=== PATIENT | male | born 1940 | race Caucasian/White ===

== ENCOUNTER → 2017-07-14 10:45 | Outpatient (CLI) | payer MEDICARE, SELFPAY ==
[2017-07-14 12:07] LABS: Hematocrit 45.8 % (40-54); Hemoglobin 15.1 g/dl (13.0-16.5); Mean Corpuscular Hgb 32.2 pg (27.0-32.0); Mean Corpuscular Volume 97.7 fL (80-94); Mean Platelet Vol. 9.5 fl (6.2-12.0); Platelet Count 214 K/mm3 (150-450); RBC Distribution Width CV 15.7 % (11.6-14.6); Red Blood Count 4.69 M/mm3 (4.6-6.2); White Blood Count 7.2 K/mm3 (4.4-11.0)
[2017-07-14 12:22] LABS: Scan Indicated on CBC? Y/N NO
[2017-07-14 12:53] LABS: ALB/GLOB Ratio 0.9 RATIO (0.9-2.4); AST(SGOT) 30 U/L (15-37); Alanine Aminotransfer ALT/SGPT 40 U/L (16-61); Albumin, Serum 3.3 g/dL (3.2-5.0); Alkaline Phosphatase 48 U/L (45-117); Anion Gap 8 (5-15); BUN 16 mg/dL (7-18); BUN/Creat Ratio 16.1 RATIO (10-20); Calcium,Total 8.7 mg/dL (8.5-10.1); Chloride 105 mmol/L (98-107); EST Glomerular Filtration Rate 77 mL/min (>60); Est Glom Filt Rate - Afr Amer 94 mL/min (>60); Globulin 3.5 g/dL (2.2-4.2); Glucose 109 mg/dL (74-106); Protein, Total 6.8 g/dL (6.4-8.2); Sodium Level 140 mmol/L (136-145); Thyroid Stim Hormone (TSH) 2.24 uIU/mL (0.358-3.74)
[2017-07-15 10:37] LABS: Vitamin B12 > 2000 pg/mL (211-911); Vitamin D,25 Hydroxy 34.2 ng/mL (19.95-100.01)
== END ==
PROVIDERS: Family Provider Family Medicine; PCP Family Medicine; Visit Provider Family Medicine
DX: E11.9 Type 2 diabetes mellitus without complications (principal); E53.8 Deficiency of other specified B group vitamins; E55.9 Vitamin D deficiency, unspecified
CPT/HCPCS: 36415; 80053; 82306; 82607; 84443; 85027

== ENCOUNTER → 2018-01-14 12:08 | Outpatient (CLI) | payer MEDICARE, SELFPAY ==
[2018-01-14 14:17] LABS: Anion Gap 10 (5-15); BUN 14 mg/dL (7-18); BUN/Creat Ratio 13.6 RATIO (10-20); Calcium,Total 9.1 mg/dL (8.5-10.1); Chloride 104 mmol/L (98-107); Creatinine, Serum 1.03 mg/dL (0.70-1.30); EST Glomerular Filtration Rate 74 mL/min (>60); Est Glom Filt Rate - Afr Amer 90 mL/min (>60); Glucose 94 mg/dL (74-106); Sodium Level 140 mmol/L (136-145)
[2018-01-14 14:42] LABS: BNP,B-Type NATRIURETIC PEPTIDE 21.3 pg/mL (0-100)
== END ==
PROVIDERS: Family Provider Family Medicine; PCP Family Medicine; Visit Provider Family Medicine
DX: E55.9 Vitamin D deficiency, unspecified (principal); R60.0 Localized edema; I25.10 Atherosclerotic heart disease of native coronary artery without angina pectoris
CPT/HCPCS: 36415; 80048; 82306; 83880

== ENCOUNTER → 2018-02-15 06:26 | Outpatient (CLI) | payer MEDICARE, SELFPAY ==
--- NOTE | 2018-02-15 17:48 | STRESSREP ---
Stress Test Report Pharmacologic myocardial perfusion stress test. 77-year-old man with a history of chest pain. Medications metoprolol, aspirin, fissural, pravastatin, tamsulosin. Stress protocol: Resting EKG demonstrates normal sinus rhythm with a rate of 64 bpm leftward axis is present resting blood pressures 140/96 mmHg. 0.4 mg of regadenoson was infused per usual protocol followed by rapid intravenous saline flush injection continuous EKG monitoring was performed. The maximum heart rate attained was 81 bpm which was 56% of maximum predicted heart rate the maximum workload was 1 metabolic equivalent. At rest nonspecific ST-T wave changes were noted at peak infusion nonspecific ST-T wave changes were noted. No EKG changes suggestive of ischemia was present. Resting blood pressure is 140/96 with a peak blood pressure the same. Final blood pressure is 138/90 mmHg. Myocardial perfusion protocol. 14.0 mCi of technetium 99m sestamibi was injected at rest. 0.4 mg of regadenoson was infused per usual protocol peak infusion 45.0 mCi of technetium 99m sestamibi was injected straight stress images were obtained stress and rest images were reconstructed and compared in the short axis vertical and horizontal long axis. Perfusion SPECT analysis: Review of the stress images demonstrate normal uptake of tracer noted in the anterior wall lateral wall. There is mildly reduced perfusion noted in the anteroseptal wall on the stress images with moderate improvement on the resting images suggestive of a mild amount of anteroseptal ischemia. The apex appears to have reduced perfusion on the stress and rest images to a similar extent. Gated SPECT analysis: The gated ejection fraction is noted to be 54% with mild anteroapical hypokinesis noted. Conclusion: Mildly abnormal pharmacologic myocardial perfusion stress test with evidence of anterior septal ischemia. Preserved ejection fraction.
== END ==
PROVIDERS: Family Provider Family Medicine; PCP Family Medicine; Visit Provider Family Medicine
DX: R07.9 Chest pain, unspecified (principal)
CPT/HCPCS: 78452; 93017; A9500; A4216; J2785

== ENCOUNTER 2018-02-24 10:48 | Observation (INO) | payer MEDICARE, SELFPAY ==
[2018-02-24 11:02] VITALS: BP 143/81; PULSE 59; RESP 16; TEMP 36.7; O2SAT 98
[2018-02-24 11:04] VITALS: BP 142/78
--- NOTE | 2018-02-24 11:05 | RAD_ITS ---
STUDY: X-RAY CHEST REASON FOR EXAM: Male, 77 years old. CHEST PAIN TECHNIQUE: Single AP portable view of the chest. COMPARISON: None. FINDINGS: Subsegmental atelectases in the right and left lung bases. There is no demonstrated pleural abnormality. Normal size heart. Normal mediastinum and aniceto. Normal visualized pulmonary arteries. There is atherosclerotic tortuosity of the aortic arch and descending thoracic aorta. Normal visualized thoracic spine. There is degenerative osteoarthritis of the bilateral shoulders. There is no demonstrated abnormality of the visualized soft tissue structures of the upper abdomen. RAD/Chest 1 View (Portable) IMPRESSION: Degenerative changes, as described above. No demonstrated acute cardiopulmonary process. Electronically Signed: Larry Hunter MD at 11:39 EDT Tel , Service support ,
[2018-02-24 11:16] VITALS: PULSE 67
[2018-02-24 11:16] LABS: Absolute Neutrophil Count 3.2 X10^3/uL (2.0-7.7); Basophil# 0.02 X10^3/uL; Basophil% 0.4 % (0-1); Eosinophil# 0.09 X10^3/uL; Eosinophils% 1.7 % (0-5); Hematocrit 45.3 % (40-54); Hemoglobin 14.8 g/dl (13.0-16.5); Lymphocyte % 25.7 % (19-41); Mean Corp Hgb Conc 32.7 g/gl (32-36); Mean Corpuscular Hgb 32.2 pg (27.0-32.0); Mean Corpuscular Volume 98.5 fL (80-94); Mean Platelet Vol. 8.8 fl (6.2-12.0); Monocyte% 12.8 % (0-10); Neutrophil # 3.21 X10^3/uL (2.7-7.7); Neutrophil % 58.8 % (47-70); POSITIVE COUNT NO; POSITIVE DIFFERENTIAL NO; POSITIVE MORPHOLOGY NO; Platelet Count 187 K/mm3 (150-450); RBC Distribution Width CV 15.7 % (11.6-14.6); RBC Distribution Width SD 55.8 fl (35.1-43.9); White Blood Count 5.5 K/mm3 (4.4-11.0)
[2018-02-24 11:25] LABS: Prothrombin Time (Protime)PT. 12.7 SECONDS (11.7-14.9)
[2018-02-24 11:27] VITALS: BMI 39.2
[2018-02-24 11:30] LABS: Anion Gap 4 (5-15); BUN 14 mg/dL (7-18); BUN/Creat Ratio 13.3 RATIO (10-20); Calcium,Total 8.8 mg/dL (8.5-10.1); Chloride 106 mmol/L (98-107); Creatinine, Serum 1.05 mg/dL (0.70-1.30); EST Glomerular Filtration Rate 73 mL/min (>60); Est Glom Filt Rate - Afr Amer 88 mL/min (>60); Estimated Creatinine Clearance 64.67 ml/min; Glucose 90 mg/dL (74-106); Potassium 4.1 mmol/L (3.5-5.1); Sodium Level 142 mmol/L (136-145)
[2018-02-24] MEDS: TICAGRELOR 90 MG TABLET 180 MG PO (11:36)
[2018-02-24 11:44] VITALS: BMI 39.2
[2018-02-24 12:05] LABS: Bedside Glucose 79 mg/dL (70-110)
--- NOTE | 2018-02-24 12:10 | NURSING ---
Called report to Shyanne ONEAL in [facility]
--- NOTE | 2018-02-24 12:16 | CASEMGMT ---
According to the [facility] Care website, the following are in-network tertiary facilities: [facility], [place], [facility] and . Nirmal ONEAL CM
[2018-02-24] MEDS: 0.9% Normal Saline 1,000 ML 60 ML IV (12:28)
[2018-02-24] MEDS: 0.9% NaCl Peripheral Flush Adult/Peds IV (12:30)
--- NOTE | 2018-02-24 12:40 | PCM.CONS.C ---
Reason for Consult Date of Consultation: 02/24/18 Reason for Consultation: Chest pain History of Present Illness: NYASIA MOSQUEDA, is a 77 M who presents to the office today for an initial evaluation. He is a pleasant gentleman with a previous history of coronary artery disease status post myocardial infarction in 2003. At that time he underwent a cardiac catheterization and angioplasty and stent deployment of a totally occluded left anterior descending artery. He had a 3.0 x 18 mm Cypher stent placed in the mid left anterior descending artery and the proximal left anterior descending artery had a 3.5 x 13 mm Cypher stent placed. He apparently did well over the ensuing years and also underwent an echocardiographic evaluation in 2011 at that time his estimated ejection fraction was 50%. He does have a history of hypertension diabetes mellitus and more recently he started getting shortness of breath as well as chest discomfort. He describes this as a heaviness and burning across his chest sometimes radiating to his left arm. He has been taking nitroglycerin which seems to relieve the discomfort and he has finished a bottle of nitroglycerin in approximately a week. He underwent stress testing a week ago which demonstrated mildly abnormal pharmacologic myocardial perfusion with evidence of anterior ischemia. He presents today for an evaluation. He has had no dizziness or diaphoresis no near syncope or syncope. He does get short of breath with exertion. Past Medical History Allergies/Adverse Reactions: Allergies No Known Allergies Allergy (Unverified 02/24/18 09:34) Home Medications: Ambulatory Orders Medication Instructions Recorded cholecalciferol (vitamin D3) 50,000 unit PO QWEEK 02/23/18 50,000 unit capsule furosemide 20 mg tablet 20 mg PO DAILY 02/23/18 losartan 50 mg tablet 50 mg PO DAILY 02/23/18 metformin ER 500 mg 500 mg PO QHS tab 02/23/18 tablet,extended release 24 hr metoprolol tartrate 25 mg tablet 25 mg PO BID 02/23/18 pravastatin 40 mg tablet 40 mg PO QHS tab 02/23/18 tamsulosin 0.4 mg capsule 0.4 mg PO QHS 02/23/18 Aspirin [Aspirin, Baby] 81 mg PO DAILY@0800 02/24/18 Bupropion HCl [Bupropion Xl] 300 mg PO DAILY 02/24/18 Cyanocobalamin (Vitamin B-12) 2,500 mcg PO DAILY 02/24/18 [Vitamin B12] Fish Oil/Borage/Flax/Om3,6,9#1 800 mg PO BID 02/24/18 [Mtdrqyvj-Aalv-Lcoyyv Oil Sftgl] L.acidoph,Paracasei, B.lactis 1 each PO QHS 02/24/18 [Probiotic] Potassium Chloride [K-Dur] 10 meq PO BID 02/24/18 nitroglycerin 0.4 mg sublingual 0.4 mg SUBLINGUAL Q5-15M PRN #25 02/24/18 tablet tab Past Medical History (Chronic Problems): Chronic Problems (Last Reviewed 02/24/18 @ 10:35 by Celestine Castillo MD) 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) Hyperlipidemia (Chronic) Essential (primary) hypertension (Chronic) Atherosclerosis of coronary artery of semin[place] heart with angina pectoris (Chronic) [id number] LAD w/ 3.0 x 18 mm Cypher and Prox LAD w/ 3.5 x 13 mm Cypher Stent 04/29/2004 Surgical History: no surgical history Smoking Status: Never smoker Alcohol: None Drugs: None Review of Systems - Review of Systems General: Denies: Fever, Night Sweats, Fatigue Cardiovascular: Reports: Chest Discomfort at Rest, Chest Discomfort with Exertion, Chest Pressure, Chest Tightness, Chest Heaviness, Shortness of Breath, Shortness of Breath at Rest, Shortness of Breath with Exertion. Denies: Chest Discomfort, Orthopnea, PND, Peripheral Edema, Palpitations, Lightheadedness, Dizziness, Near Syncope, Syncope Respiratory: Denies: Cough, Sputum Production, Hemoptysis Gastrointestinal: Denies: Hematemesis, Hematochezia, Melena Genitourinary: Denies: Dysuria, Hematuria Skin: Denies: Rash Subjectve: Pleasant gentleman in no apparent distress Objective: Vital Signs Temp Pulse Resp BP Pulse Ox 98.1 F 67 16 142/78 H 98 02/24/18 11:02 02/24/18 11:16 02/24/18 11:02 02/24/18 11:04 02/24/18 11:02 Oxygen Delivery Method Room Air Weight: 288 lb 12.889 oz Body Mass Index (BMI) 39.2 General: Awake, Alert, Oriented x 3 HEENT: PERRL, EOMI, Sclera Non Icteric Neck: Supple, Good ROM, No Lymph Node Enlargement Lungs: Clear to auscultation Cardiovascular: Regular Rhythm, Normal S1, Normal S2, No Murmurs, No Rubs, No Gallops Vascular: No Carotid Bruits, Normal Femoral Pulses, Normal Radial Pulses, Normal Dorsalis Pedal Pulse, Normal Posterior Tibial Pulses Abdomen: Bowel Sounds Present, Soft, Non Tender, No HSM, No Organomegaly Extremities: No Cyanosis, No Clubbing, No edema Neurological: No Focal Motor or Sensory Deficit 02/24/18 11:05: WBC 5.5, RBC 4.60, Hgb 14.8, Hct 45.3, MCV 98.5 H, MCH 32.2 H, MCHC 32.7, RDW 15.7 H, RDW Differential 55.8 H, Plt Count 187, MPV 8.8, Immature Gran % (Auto) 0.600, Neut % (Auto) 58.8, Lymph % (Auto) 25.7, Josephine % (Auto) 12.8 H, Eos % (Auto) 1.7, Baso % (Auto) 0.4, Absolute Neuts (auto) 3.2, Total Counted Not Reportable 02/24/18 11:05: PT 12.7, INR 1.0 02/24/18 11:05: Sodium 142, Potassium 4.1, Chloride 106, Carbon Dioxide 32.0, Anion Gap 4 L, BUN 14, Creatinine 1.05, Est GFR (MDRD) Af Amer 88, Est GFR (MDRD) Non-Af 73, BUN/Creatinine Ratio 13.3, Glucose 90, Calcium 8.8 Rhythm: EKG: ECHO: Stress Test: Cardiac Cath: PCI: CT Surgery: Holter monitor: EPS: PPM: CXR: Chest CT Scan: Assessment/Plan 1. Unstable angina And presents to the office with unstable angina and subtle EKG changes and the plan is to admit him and for him to undergo a cardiac catheterization. The risk benefits and alternatives have been explained to him he understands and agrees to proceed. The patient was administered the following: Aspirin 81 mg. Ticagrelor 180 mg. Patient will continue his statin. His beta-alejandra would also be continued. Pending on the findings further recommendations will be made. Cardiac catheterization performed demonstrated the following: Distal 70-80% left main coronary artery stenosis. Left anterior descending artery with previously placed stent which is patent Left circumflex artery with moderate proximal stenosis High-grade right coronary artery with left to right collaterals. Preserved left ventricular ejection fraction. Based on the above angiographic findings I would recommend that the patient be transferred urgently for coronary artery bypass surgery. I have discussed the above with the surgeon and the family they understand and agreed to proceed.
--- NOTE | 2018-02-25 10:41 | CL.D_ITS ---
Patient Name: NYASIA MOSQUEDA Study Date: 02/24/2018 Performing: Celestine Castillo MD Ht: 72 inches 183 cm : 1940 Wt: 289.2 lbs 131 kg Age: 77 Gender: male BSA: 2.49 PROCEDURE(S) PERFORMED FD94-OED/COR/LV CLINICAL PROFILE AND INDICATIONS Indications: Suspected CAD Heart Failure: None Stress/Imaging Stress/Image Study Performed: No Angina Classification Anginal Classification w/in 2 Weeks: CCS IV CAD Presentations: Unstable angina. CONCLUSIONS Severe distal LM and diagonal vessel stenosis and subtotally occluded right RECOMMENDATIONS Surgery consult for coronary revascularization DESCRIPTION OF PROCEDURE The patient arrived to the procedure lab. The risks and benefits of the procedure as well as a full d escription of our services here and current unavailability of surgical backup were fully explained to the patient and/or their significant other prior to the catheterization. The Timeout was completed, verifying the correct patient and procedure. The patient's procedural site was prepped and draped in the usual fashion. Local anesthetic was given subcutaneously to right groin region with Lidocaine 2%. Using a modified Seldinger technique, arterial access was obtained via the right femoral artery, a 5 Fr sheath was inserted. Left Coronary Artery selective angiography was performed in multiple views u sing a 5 Fr. JL4 catheter. Right Coronary Artery selective angiography was then performed in multiple views using a 5 Fr. 3DRC (Rashid) catheter. Left Ventriculography was performed in FOX projection using a 5 Fr. Pigtail catheter. LV to AO pullback pressures were then recorded.The arterial sheath wa s sutured in place with heparinized normal saline under pressure CORONARY ANGIOGRAPHY DOMINANCE: Right Dominant LEFT HEART ASSESSMENT Left Ventricular Ejection Fraction: by LV Gram 55 % Normal LV wall motion Normal Left Ventricular systolic function LEFT MAIN: 75 distal % Stenosis LEFT ANTERIOR DECENDING ARTERY: Instent restenosis 20 % MID LAD: Instent restenosis 20 % DIAGONAL 1: Ostial - 60 % Stenosis CIRCUMFLEX ARTERY: Mild luminal irregularities less than 30% RIGHT CORONARY ARTERY: MID RCA: 95 % Stenosis COLLATERAL FLOW: Collateral flow from Left to Right COMPLICATIONS No Complications PROCEDURE MEDICATIONS Versed 1 mg IV Fentanyl 50 mcg IV Oxygen: 2 L/min via nasal cannula SUMMARY OF HEMODYNAMIC DATA Time AIR REST ECG 12:38:46 AO 144/82 (109) SA 12:50:17 LV 137/16, 36 12:57:18 LV 133/17, 28 12:57:24 LV 126/2, 26 12:59:06 LV 129/0, 28 12:59:13 LVp 135/0, 30 12:59:17 AOp 140/71 (99) 12:59:22 ECG 14:22:24 Signed By Celestine Castillo MD On 02/24/2018 18:15:09 Celestine Castillo MD
== END 2018-02-24 16:14 | disposition short-term general hospital (02) ==
PROVIDERS: Admitting Provider Internal Medicine Cardiovascular Disease; Family Provider Family Medicine; PCP Family Medicine; Referring Provider Internal Medicine Cardiovascular Disease; Visit Provider Internal Medicine Cardiovascular Disease
DX: I25.110 Atherosclerotic heart disease of native coronary artery with unstable angina pectoris (principal); I25.2 Old myocardial infarction; I10 Essential (primary) hypertension; E11.9 Type 2 diabetes mellitus without complications; R06.02 Shortness of breath; Z79.899 Other long term (current) drug therapy; E78.5 Hyperlipidemia, unspecified; Z95.5 Presence of coronary angioplasty implant and graft; Z79.84 Long term (current) use of oral hypoglycemic drugs; Z79.82 Long term (current) use of aspirin
CPT/HCPCS: 71045; 80048; 82962; 85025; 85610; 93005; 93458; 99152; 99153; J7030; Q9967; A4216; C1769

== ENCOUNTER → 2018-06-02 08:39 | Outpatient (CLI) | payer MEDICARE, SELFPAY ==
[2018-05-07 08:14] VITALS: BMI 35.2
--- NOTE | 2018-06-02 08:42 | ECHOCS_ITS ---
Reason For Study: S/P CABG Procedure This was a 2D Doppler, Color Flow transthoracic echocardiogram. Technically difficult study due to patient body habitus. Multiple posisitons used to obtain best images. Exam performed in department. Left Ventricle Normal LV size. Left ventricular systolic function is normal. The estimated ejection fraction is 55 %. Stage 1 diastolic dysfunction. No regional wall motion abnormalities noted. Right Ventricle Normal RV size. Normal systolic function. Atria Normal left atrium. Normal right atrium. Tricuspid Valve Normal tricuspid valve. Mild (1+) tricuspid valve insufficiency. Pulmonary artery systolic pressure is 31 mmHg. Aortic Valve Trisinus/trileaflet aortic valve. Pulmonic Valve The pulmonic valve is not well visualized. Great Vessels Normal aortic root. The pulmonary artery is normal size. Normal inferior vena cava. Pericardium/Pleural Small pericardial effusion. Medication 22 gauge I.V. with prn adaptor inserted into right arm. Diluted definity 8ml given slow IV push to enhance endocardial definition. MMode/2D Measurements & Calculations LVIDd: 3.8 cm IVSd: 2.1 cm Ao root diam: 3.5 cm LVIDs: 2.3 cm LVPWd: 1.8 cm FS: 38.9 % LAV(MOD-sp4): 36.2 ml LVAd ap4: 19.2 cm2 SV(MOD-sp4): 26.1 ml EDV(MOD-sp4): 44.6 ml EDV(sp4-el): 45.2 ml LVAs ap4: 10.9 cm2 ESV(MOD-sp4): 18.5 ml ESV(sp4-el): 18.9 ml EF(MOD-sp4): 58.5 % EF(sp4-el): 58.1 % SV(sp4-el): 26.3 ml LA A4 area: 14.5 cm2 RA A4 area: 19.6 cm2 Time Measurements MV dec time: 0.28 sec Doppler Measurements & Calculations MV E max sammy: 58.2 cm/sec Lat Peak E' Sammy: 17.5 cm/sec Med Peak E' Sammy: 6.9 cm/sec MV A max sammy: 102.8 cm/sec E/E' lat: 3.3 E/E' med: 8.5 MV E/A: 0.57 MV V2 max: 109.5 cm/sec MV P1/2t max sammy: 71.7 cm/sec Ao V2 max: 95.8 cm/sec MV max P.8 mmHg MV P1/2t: 68.3 msec Ao max P.7 mmHg MV V2 mean: 49.1 cm/sec Ao V2 mean: 59.7 cm/sec MV mean P.2 mmHg MV dec slope: 307.7 cm/sec2 Ao mean P.7 mmHg MV V2 VTI: 23.2 cm MVA(P1/2t): 3.2 cm2 Ao V2 VTI: 16.6 cm LV V1 max: 90.1 cm/sec PA V2 max: 97.4 cm/sec TR max sammy: 254.7 cm/sec LV V1 max P.2 mmHg TR max P.9 mmHg LV V1 mean P.6 mmHg LV V1 mean: 57.6 cm/sec LV V1 VTI: 15.8 cm Interpretation Summary Normal LV size. Left ventricular systolic function is normal. The estimated ejection fraction is 55 %. Stage 1 diastolic dysfunction. Mild (1+) tricuspid valve insufficiency. Small pericardial effusion. Ordering Physician: Celestine Castillo Referring Physician: Maynor Montero Performed By: Sarmad Bocanegra RCS
== END ==
PROVIDERS: Family Provider Family Medicine; PCP Family Medicine; Referring Provider Internal Medicine Cardiovascular Disease; Visit Provider Internal Medicine Cardiovascular Disease
DX: I07.1 Rheumatic tricuspid insufficiency (principal); Z95.1 Presence of aortocoronary bypass graft
CPT/HCPCS: 93306; Q9957; A4216; C8929

== ENCOUNTER → 2018-08-19 12:27 | Outpatient (CLI) | payer MEDICARE, SELFPAY ==
[2018-08-05 11:02] VITALS: BMI 35.2
[2018-08-19 14:25] LABS: Anion Gap 5 (5-15); BUN 25 mg/dL (7-18); BUN/Creat Ratio 24.5 RATIO (10-20); Chloride 105 mmol/L (98-107); Creatinine, Serum 1.02 mg/dL (0.70-1.30); EST Glomerular Filtration Rate 75 mL/min (>60); Est Glom Filt Rate - Afr Amer 91 mL/min (>60); Glucose 96 mg/dL (74-106); Magnesium 1.9 mg/dL (1.6-2.6); Potassium 4.1 mmol/L (3.5-5.1); Sodium Level 141 mmol/L (136-145)
== END ==
PROVIDERS: Family Provider Family Medicine; PCP Family Medicine; Referring Provider Family Medicine; Visit Provider Family Medicine
DX: M79.89 Other specified soft tissue disorders (principal)
CPT/HCPCS: 36415; 80048; 83735

== ENCOUNTER → 2018-08-26 11:15 | Outpatient (CLI) | payer MEDICARE, SELFPAY ==
[2018-08-05 11:02] VITALS: BMI 35.2
[2018-08-26 13:22] LABS: Anion Gap 7 (5-15); BUN 26 mg/dL (7-18); BUN/Creat Ratio 24.5 RATIO (10-20); Calcium,Total 8.9 mg/dL (8.5-10.1); Chloride 105 mmol/L (98-107); Creatinine, Serum 1.06 mg/dL (0.70-1.30); EST Glomerular Filtration Rate 72 mL/min (>60); Est Glom Filt Rate - Afr Amer 87 mL/min (>60); Glucose 95 mg/dL (74-106); Potassium 4.2 mmol/L (3.5-5.1); Sodium Level 142 mmol/L (136-145)
== END ==
PROVIDERS: Family Provider Family Medicine; PCP Family Medicine; Referring Provider Family Medicine; Visit Provider Family Medicine
DX: M79.89 Other specified soft tissue disorders (principal)
CPT/HCPCS: 36415; 80048; 83735

== ENCOUNTER → 2018-11-30 12:24 | Outpatient (CLI) | payer MEDICARE, SELFPAY ==
[2018-08-05 11:02] VITALS: BMI 35.2
--- NOTE | 2018-11-30 12:29 | RAD_ITS ---
STUDY: X-RAY - CERVICAL SPINE REASON FOR EXAM: Male, 78 years old. Neck pain TECHNIQUE: 5 view(s) of the cervical spine were obtained. COMPARISON: None FINDINGS: There is no evidence of fracture or dislocation in the cervical spine. The dens is intact. The vertebral body heights are well-maintained. There are moderate degenerative changes noted with disc space narrowing in the lower cervical spine. The prevertebral soft tissues are unremarkable. There is no radiodense foreign body. RAD/Cerv Spine 4 or 5 Views IMPRESSION: No fracture or dislocation in the cervical spine. Moderate degenerative changes in the lower cervical spine. Electronically Signed: Jesus Nicolas, at 17:29 EDT Tel , Service support ,
[2018-11-30 13:38] LABS: Hematocrit 45.1 % (40-54); Hemoglobin 14.4 g/dl (13.0-16.5); Mean Corp Hgb Conc 31.9 g/gl (32-36); Mean Corpuscular Hgb 30.6 pg (27.0-32.0); Mean Corpuscular Volume 95.8 fL (80-94); Mean Platelet Vol. 9.4 fl (6.2-12.0); Platelet Count 223 K/mm3 (150-450); RBC Distribution Width CV 16.8 % (11.6-14.6); RBC Distribution Width SD 57.7 fl (35.1-43.9); Red Blood Count 4.71 M/mm3 (4.6-6.2); White Blood Count 6.3 K/mm3 (4.4-11.0)
[2018-11-30 13:39] LABS: Scan Indicated on CBC? Y/N NO
[2018-11-30 13:54] LABS: ALB/GLOB Ratio 1.1 RATIO (0.9-2.4); AST(SGOT) 24 U/L (15-37); Alanine Aminotransfer ALT/SGPT 25 U/L (16-61); Albumin, Serum 3.6 g/dL (3.2-5.0); Alkaline Phosphatase 48 U/L (45-117); Anion Gap 5 (5-15); BUN 24 mg/dL (7-18); BUN/Creat Ratio 20.5 RATIO (10-20); Calcium,Total 9.4 mg/dL (8.5-10.1); Chloride 103 mmol/L (98-107); Cholesterol 160 mg/dL (200); Creatinine, Serum 1.17 mg/dL (0.70-1.30); EST Glomerular Filtration Rate 64 mL/min (>60); Est Glom Filt Rate - Afr Amer 77 mL/min (>60); Globulin 3.4 g/dL (2.2-4.2); Glucose 88 mg/dL (74-106); High Density Lipoprotein 46 mg/dL; Potassium 4.4 mmol/L (3.5-5.1); Sodium Level 140 mmol/L (136-145); Triglycerides 183 mg/dL; Very Low Density Lipoprotein 37 mg/dL (5-40)
[2018-11-30 14:17] LABS: BNP,B-Type NATRIURETIC PEPTIDE 98.4 pg/mL (0-100)
== END ==
PROVIDERS: Family Provider Family Medicine; PCP Family Medicine; Referring Provider Family Medicine; Visit Provider Family Medicine
DX: I25.10 Atherosclerotic heart disease of native coronary artery without angina pectoris (principal); M54.2 Cervicalgia
CPT/HCPCS: 36415; 72050; 80053; 80061; 83880; 85027

== ENCOUNTER → 2018-12-21 12:33 | Outpatient (CLI) | payer MEDICARE, SELFPAY ==
[2018-08-05 11:02] VITALS: BMI 35.2
--- NOTE | 2018-12-21 12:35 | ART_ITS ---
Reason For Study: CAD/Claudication Procedure A bilateral lower extremity continuous wave Doppler with analog waveform analysis and ankle brachial indexes. Left Segmental Pressures Left brachial= 117mmHg. Left posterior tibial artery = 136mmHg. Left dorsalis pedis artery = 134mmHg. Left digit = >254 mmHg. The left dorsalis pedis waveforms are triphasic. The left posterior tibial artery waveforms are triphasic. Right Segmental Pressures Right brachial= 113mmHg. Right posterior tibial artery = 135mmHg. Right dorsalis pedis artery = 137mmHg. Right digit = 90 mmHg. The right dorsalis pedis waveforms are triphasic. The right posterior tibial artery waveforms are triphasic. Indices The right ankle brachial index by the dorsalis pedis is 1.17. The right ankle brachial index by the posterior tibial artery is 1.15. The right digital-brachial index is 0.77. The left ankle brachial index by the dorsalis pedis is 1.15. The left ankle brachial index by the posterior tibial artery is 1.16. The left digital-brachial index is NC. Interpretation Summary Triphasic Doppler waveforms are noted at ankle level bilaterally. Pulse-volume recording waveform amplitudes are satisfactory at ankle and digital levels bilaterally. Resting ankle-brachial indices are normal bilaterally. The right digital-brachial index is normal. The left digital-brachial index was not determined. There is no evidence of significant arterial occlusive in the lower extremities bilaterally. Ordering Physician: All Montero Referring Physician: All Montero Performed By: Olga Hernandes RVT
== END ==
PROVIDERS: Family Provider Family Medicine; PCP Family Medicine; Referring Provider Family Medicine; Visit Provider Family Medicine
DX: I73.9 Peripheral vascular disease, unspecified (principal); I25.10 Atherosclerotic heart disease of native coronary artery without angina pectoris
CPT/HCPCS: 93922

== ENCOUNTER → 2019-01-19 11:38 | Outpatient (CLI) | payer MEDICARE, SELFPAY ==
[2018-08-05 11:02] VITALS: BMI 35.2
--- NOTE | 2019-01-19 11:41 | RAD_ITS ---
STUDY: X-RAY - LUMBAR SPINE REASON FOR EXAM: Male, 78 years old. Low back pain, bilateral leg pain and numbness. TECHNIQUE: 5 view(s) of the lumbar spine were obtained. COMPARISON: None FINDINGS: Normal lumbar lordosis. There is no substantial scoliosis. Moderate compression fracture of L2 with focal kyphosis in 5 mm retrolisthesis of L2 on L3. There is multilevel endplate spondylosis of the lumbar vertebrae. There is multi-level degenerative disc disease with multi-level disc space narrowing. The soft tissue structures are unremarkable. RAD/L/S Spine Min 4 Views IMPRESSION: Moderate compression fracture of L2 which may be acute or chronic and clinical correlation and/or MRI is recommended. Associated focal kyphosis in 5 mm retrolisthesis of L2 on L3. Electronically Signed: Wilber Art MD at 12:04 EDT Tel , Service support ,
== END ==
PROVIDERS: Family Provider Family Medicine; PCP Family Medicine; Referring Provider Family Medicine; Visit Provider Family Medicine
DX: M54.9 Dorsalgia, unspecified (principal)
CPT/HCPCS: 72110

== ENCOUNTER 2019-02-09 11:30 | Outpatient (RCR) | payer MEDICARE, SELFPAY ==
[2018-08-05 11:02] VITALS: BMI 35.2
--- NOTE | 2018-12-22 08:58 | HP.PTEVAL ---
Patient's Visit Information NYASIA MOSQUEDA is a 78 year old M referred to Physical Therapy by All Montero MD with a diagnosis of NECK PAIN. Date of Evaluation: 12/22/18 Physical Therapist: Tru Bernstein, PT, Cert MDT, OCS - Visit Plan Frequency: 2x /Week Duration: 4 Weeks Plan: PT INTERVENTIONS INCLUDE CERVICAL/ POSTURAL EX'S,MANUAL THERAY STM,MODALTIES - Subjective Findings: This 78 y/o male presents to physical therapy with neck pain. Patient has had cerical pain for many years. Patient pain left cervical > right. Aggravating factors turning ,unable to look up,prolongeg sitting.Pateint uable to lay thus sleep in recliner . Patient seen aggravating. Alleviating factors hot shower. Patient denies parathesia/tingling. Denies tinnutus/dizziness. C/O occassional CHAIDEZ.Pateint pain affects sleeping. Pateint seen DR recommended PT and x-rays DDD MOD. Patient pain affects ADLS' and housework tasks. Patient p[ain in cevical spine affects QOL. SOCIAL: sngle. VOCATION: retired - Pain Left Neck Pain Intensity (Out of 10): 8 Pain Intensity Range: 10 - Objective POSTURE: foward head mod ,rounded shoulders tilted to left ,protruded head. PALPATION: tender UT/levator. NEURO: intact ,denies parathesia/tingling ,C5-6-7 2/3. AROM: BUE WFL. MMT: BUE grossly 4/5 ,4-/5 shoulder. CERVICAL ROM: flexion mod loss,lateral flexion/rotation mod/severe loss,extension severe loss,protrusion/retraction severe limited - Special Tests C/S Radiculapathy - Left Upper limb tension test: Negative C/S Radiculapathy - Right Upper limb tension test: Negative C/S Radiculapathy - Left Spurlings: Positive C/S Radiculapathy - Right Spurlings: Positive C/S Radiculapathy - Left Cervical distraction: Negative C/S Radiculapathy - Right Cervical distraction: Negative Vertebral Artery Test: Negative - Goals Goal 1:: Patient to be Independant with HEP. Goal Time Frame: 4-6 Weeks Goal 2:: Patient to improve posture for ADLS Goal Time Frame: 8-12 Weeks Goal 3:: Pateint to decrease cervical pain by 50% or greater to improve function. Goal Time Frame: 4-6 Weeks Goal 4:: Patient to improve cervical ROM for functiion with less symptoms Goal Time Frame: 4-6 Weeks Goal 5:: Patient to improve neck owestry score by 5 points or > to improve QOL. Goal Time Frame: 4-6 Weeks - Rehabilitation Potential Physical Therapy Diagnosis: This patient has cervical pain with poor posture,poor cervical ROM ,pain impairs ADL's and unable to lay supine thus benifit from skilled PT Rehabilitation Potential: Good - Anticipated Interventions Patient/Client Instruction: Educate patient on: Condition, Plan of Care For the Purpose of:: To decrease pain, To increase ROM, To improve muscle performance and motor function, To improve ability to perform ADL's, To increase tolerance to activity/condition/position, To improve ability of physical actions for home/community/work/leisure, To improve health of tissue, To decrease soft tissue restriction, To improve ability to perform tasks related to life management Therapeutic Exercise to Include: Strength training, Postural training, Flexibilty training, Active ROM Comment: CERVICAL For the Purpose of:: To decrease pain, To increase ROM, To improve muscle performance and motor function, To improve ability to perform ADL's, To improve performance and independence with ADL's, To improve ability of physical actions for home/community/work/leisure, To improve health of tissue, To decrease soft tissue restriction, To improve ability to perform tasks related to life management Manual Therapy Techniques to Include: Soft tissue mobilization Comment: CERVICAL For the Purpose of:: To decrease pain, To improve nutrient delivery to tissue, To increase oxygenation perfusion, To improve health of tissue, To decrease soft tissue restriction TENS: Yes IF ES: Yes Cryotherapy (ice pack, ice massage): Yes Thermo therapy (hot pack): Yes Ultrasound (thermal/non thermal): Yes For the Purpose of:: To decrease pain, To increase ROM, To improve nutrient delivery to tissue, To increase oxygenation perfusion, To improve health of tissue, To decrease soft tissue restriction Thank you for the opportunity to evaluate your patient. For Medicare and Medicare HMO plans, please review the plan of care and approve it. It will need to be FAXED BACK to us at [phone] for Medicare purposes. For Medicare only, by signing this I certify the plan of care. Please let me know if there are questions or concerns regarding this plan of care. Physician Signature: Date:
--- NOTE | 2019-03-24 15:26 | HP.PT.NRP ---
HP - Discharge Summary (1) - Patient Information NYASIA MOSQUEDA was seen in my office for initial evaluation on 12/22/18. The following Plan of Care was established for this patient: Initial Frequency: 2x /Week Initial Duration: 4 Weeks - Anticipated Interventions Patient/Client Instruction: Educate patient on: Condition, Plan of Care For the Purpose of:: To decrease pain, To increase ROM, To improve muscle performance and motor function, To improve ability to perform ADL's, To increase tolerance to activity/condition/position, To improve ability of physical actions for home/community/work/leisure, To improve health of tissue, To decrease soft tissue restriction, To improve ability to perform tasks related to life management Therapeutic Exercise to Include: Strength training, Postural training, Flexibilty training, Active ROM For the Purpose of:: To decrease pain, To increase ROM, To improve muscle performance and motor function, To improve ability to perform ADL's, To improve performance and independence with ADL's, To improve ability of physical actions for home/community/work/leisure, To improve health of tissue, To decrease soft tissue restriction, To improve ability to perform tasks related to life management Manual Therapy Techniques to Include: Soft tissue mobilization Comment: CERVICAL For the Purpose of:: To decrease pain, To improve nutrient delivery to tissue, To increase oxygenation perfusion, To improve health of tissue, To decrease soft tissue restriction TENS: Yes IF ES: Yes Cryotherapy (ice pack, ice massage): Yes Thermo therapy (hot pack): Yes Ultrasound (thermal/non thermal): Yes For the Purpose of:: To decrease pain, To increase ROM, To improve nutrient delivery to tissue, To increase oxygenation perfusion, To improve health of tissue, To decrease soft tissue restriction This patient was last seen in our office 02/09/19. Pertinent comments regarding their Physical therapy will appear below: Patient was seen for PT for neck pain focusing on cervical postural ex's /strengthening,manual therapy ,thus is d/c. At this point I will be discontinuing this patient from physical therapy. I would be happy to see this patient again in the future if found appropriate by the physician. Thank you! Tru Bernstein, PT, Cert MDT, OCS
== END 2019-02-09 19:00 | disposition home or self-care (01) ==
LOC: PT 11:30
PROVIDERS: Family Provider Family Medicine; PCP Family Medicine; Visit Provider Family Medicine
DX: M54.2 Cervicalgia (principal)
CPT/HCPCS: 97035; 97110; 97140; 97162

== ENCOUNTER → 2019-02-25 12:12 | Outpatient (CLI) | payer MEDICARE, SELFPAY ==
[2019-02-04 10:51] VITALS: BMI 36.5
[2019-02-25 15:02] LABS: Anion Gap 8 (5-15); BUN 19 mg/dL (7-18); BUN/Creat Ratio 16.5 RATIO (10-20); Calcium,Total 8.8 mg/dL (8.5-10.1); Chloride 103 mmol/L (98-107); Creatinine, Serum 1.15 mg/dL (0.70-1.30); EST Glomerular Filtration Rate 65 mL/min (>60); Est Glom Filt Rate - Afr Amer 79 mL/min (>60); Glucose 72 mg/dL (74-106); Potassium 3.9 mmol/L (3.5-5.1); Sodium Level 142 mmol/L (136-145)
== END ==
PROVIDERS: Family Provider Family Medicine; PCP Family Medicine; Referring Provider Physician Assistant Medical; Visit Provider Physician Assistant Medical
DX: R60.0 Localized edema (principal)
CPT/HCPCS: 36415; 80048

== ENCOUNTER → 2019-03-30 11:47 | Outpatient (CLI) | payer MEDICARE, SELFPAY ==
[2019-03-16 11:05] VITALS: BMI 37.4
--- NOTE | 2019-03-30 11:51 | RAD_ITS ---
STUDY: X-RAY - PELVIS AND BILATERAL HIPS REASON FOR EXAM: Male, 78 years old. Chronic bilateral hip pain. TECHNIQUE: AP view of the pelvis.? 2 views of the right hip, and 2 views of the left hip were obtained. COMPARISON: None. FINDINGS: There is a non-specific bowel gas pattern. Small focal calcification in the central pelvis. Normal visualized soft tissue structures. Normal bilateral iliac wings, sacroiliac joints and visualized sacrum. Normal bilateral superior and inferior pubic rami. There are degenerative changes of the pubic symphysis with articular narrowing and sclerosis. Normal bilateral ischial tuberosities. Normal visualized right femoral head. Normal right acetabulum. Normal right hip joint. Normal visualized left femoral head. Normal left acetabulum. Normal left hip joint. RAD/Hips B/L min 2 views w/ Pelvis IMPRESSION: Normal x-ray examination of the pelvis and bilateral hips. Electronically Signed: Adrián Aldana DO at 17:46 EST Tel [phone], Service support ,
== END ==
PROVIDERS: Family Provider Family Medicine; PCP Family Medicine; Referring Provider Anesthesiology Pain Medicine; Visit Provider Anesthesiology Pain Medicine
DX: M25.559 Pain in unspecified hip (principal)
CPT/HCPCS: 73521

== ENCOUNTER → 2019-04-26 15:14 | Outpatient (CLI) | payer MEDICARE, SELFPAY ==
[2019-03-16 11:05] VITALS: BMI 37.4
[2019-04-26 17:45] LABS: Anion Gap 7 (5-15); BUN 18 mg/dL (7-18); BUN/Creat Ratio 16.8 RATIO (10-20); Calcium,Total 8.6 mg/dL (8.5-10.1); Chloride 104 mmol/L (98-107); Creatinine, Serum 1.07 mg/dL (0.70-1.30); EST Glomerular Filtration Rate 71 mL/min (>60); Est Glom Filt Rate - Afr Amer 86 mL/min (>60); Glucose 85 mg/dL (74-106); Sodium Level 140 mmol/L (136-145)
== END ==
PROVIDERS: Family Provider Family Medicine; PCP Family Medicine; Referring Provider Family Medicine; Visit Provider Physician Assistant Medical
DX: R60.0 Localized edema (principal)
CPT/HCPCS: 36415; 80048

== ENCOUNTER → 2019-07-27 | Outpatient (CLI) | payer MEDICARE, SELFPAY ==
[2019-03-16 11:05] VITALS: BMI 37.4
--- NOTE | 2019-07-27 11:40 | TISS_PTH ---
PATIENT: NYASIA MOSQUEDA LOC: [facility] U#:[id number] AGE/SX: 79/M ROOM: RE07/27/[address]: Dr. Maynor Montero MD : [id number] BED: DIS: 07/27/2019 SPEC #: [id number] RECD: 07/27/19 15:43 STATUS: ADRIANA NIYA #: [id number] ALIZA: 07/27/19 11:[address]: Maynor Montero DEPT: SURGICAL PATHOLOGY RECD BY: Levy Estrella Tissues: Left ankle Procedures: Surgery Specimen Level IV HEADER OPERATION: Left ankle excision nevus PRE-OP DIAGNOSIS: Rule out melanoma TISSUE SUBMITTED: Ankle excision MICROSCOPIC DIAGNOSIS Left ankle lesion, punch biopsy: Suggestive of lentigo and statis dermatitis. Negative for melanocytic lesion. See comment. EUSEBIO:ahsan 07/29/19 COMMENT Correlation with clinical findings and appropriate follow up are necessary. Complete excision of the lesion is suggested if clinically indicated. MICROSCOPIC DESCRIPTION Slides are reviewed. GROSS DESCRIPTION Received in fixative is one container labeled with the patient's name and designated left ankle. The specimen consists of a punch biopsy of light brown skin measuring 0.6 cm in diameter and 0.4 cm in length. The specimen is bisected and submitted entirely in one cassette. / SJ:rg 07/28/19 TC:5 [facility]: [id number]
== END | disposition home or self-care (01) ==
LOC: LABSPEC 16:13
PROVIDERS: PCP Family Medicine; Referring Provider Family Medicine; Visit Provider Family Medicine
DX: L98.9 Disorder of the skin and subcutaneous tissue, unspecified (principal)
CPT/HCPCS: 88305

== ENCOUNTER → 2019-10-12 10:46 | Outpatient (CLI) | payer MEDICARE, SELFPAY ==
[2019-10-06 15:00] VITALS: BMI 36.3
[2019-10-12 11:28] LABS: Hematocrit 43.6 % (40-54); Mean Corp Hgb Conc 32.1 g/dL (32-36); Mean Corpuscular Hgb 32.3 pg (27.0-32.0); Mean Corpuscular Volume 100.7 fL (80-94); Mean Platelet Vol. 8.9 fl (6.2-12.0); Platelet Count 222 K/mm3 (150-450); RBC Distribution Width SD 56.4 fl (35.1-43.9); Red Blood Count 4.33 M/mm3 (4.6-6.2); White Blood Count 6.1 K/mm3 (4.4-11.0)
[2019-10-12 11:58] LABS: AST(SGOT) 17 U/L (15-37); Alanine Aminotransfer ALT/SGPT 25 U/L (16-61); Albumin, Serum 3.4 g/dL (3.2-5.0); Alkaline Phosphatase 47 U/L (45-117); Anion Gap 6 (5-15); BUN 16 mg/dL (7-18); BUN/Creat Ratio 14.8 RATIO (10-20); Bilirubin, Direct 0.25 mg/dL (0.00-0.30); Calcium,Total 9.1 mg/dL (8.5-10.1); Chloride 104 mmol/L (98-107); Cholesterol 170 mg/dL (200); Creatinine, Serum 1.08 mg/dL (0.70-1.30); EST Glomerular Filtration Rate 70 mL/min (>60); Est Glom Filt Rate - Afr Amer 85 mL/min (>60); Globulin 3.7 g/dL (2.2-4.2); Glucose 116 mg/dL (74-106); High Density Lipoprotein 42 mg/dL; Potassium 4.4 mmol/L (3.5-5.1); Protein, Total 7.1 g/dL (6.4-8.2); Sodium Level 140 mmol/L (136-145); Thyroid Stim Hormone (TSH) 1.94 uIU/mL (0.358-3.74); Triglycerides 261 mg/dL; Very Low Density Lipoprotein 52 mg/dL (5-40)
== END ==
PROVIDERS: PCP Family Medicine; Referring Provider Internal Medicine Cardiovascular Disease; Visit Provider Internal Medicine Cardiovascular Disease
DX: I25.119 Atherosclerotic heart disease of native coronary artery with unspecified angina pectoris (principal); R06.00 Dyspnea, unspecified; Z95.1 Presence of aortocoronary bypass graft; R60.0 Localized edema; E78.5 Hyperlipidemia, unspecified
CPT/HCPCS: 36415; 80048; 80061; 80076; 84443; 85027

== ENCOUNTER → 2019-11-03 12:07 | Outpatient (CLI) | payer MEDICARE, SELFPAY ==
[2019-10-06 15:00] VITALS: BMI 36.3
--- NOTE | 2019-11-03 12:10 | RAD_ITS ---
STUDY: X-RAY - LEFT KNEE REASON FOR EXAM: Male, 79 years old. LEFT KNEE PAIN TECHNIQUE: 4 view(s) of the knee. COMPARISON: None. FINDINGS: Normal visualized distal femur. Normal visualized proximal tibia and fibula. Normal proximal tibiofibular articulation. Narrowed medial femorotibial compartment. Normal lateral femorotibial compartment. Normal patellofemoral articulation. The soft tissue structures are unremarkable. RAD/Knee 4 or More Views IMPRESSION: Mild degenerative change. No acute fracture Electronically Signed: Giuseppe Powers MD at 21:29 EDT , Service support ,
== END ==
PROVIDERS: PCP Family Medicine; Referring Provider Family Medicine; Visit Provider Family Medicine
DX: M25.569 Pain in unspecified knee (principal)
CPT/HCPCS: 73564

== ENCOUNTER → 2020-04-05 13:42 | Outpatient (CLI) | payer MEDICARE, SELFPAY ==
[2019-10-06 15:00] VITALS: BMI 36.3
--- NOTE | 2020-04-05 13:45 | RAD_ITS ---
STUDY: X-RAY - CERVICAL SPINE REASON FOR EXAM: Male, 79 years old. neck pain, arthritis TECHNIQUE: 4 view(s) of the cervical spine were obtained. COMPARISON: None FINDINGS: There are degenerative changes of the anterior atlantoaxial articulation. Normal odontoid process. There is dextroscoliosis of the cervical spine. There is straightening of the normal cervical lordosis. There is multi-level endplate spondylosis. There is multi-level degenerative disc disease with multilevel disc space narrowing. The soft tissue structures are unremarkable. RAD/Cerv Spine 2 or 3 Views IMPRESSION: Multilevel degenerative changes of the visualized cervical spine. Electronically Signed: Larry Hunter, at 0:54 EST Tel , Service support ,
== END ==
PROVIDERS: PCP Family Medicine; Visit Provider Anesthesiology Pain Medicine
DX: M54.2 Cervicalgia (principal); M19.90 Unspecified osteoarthritis, unspecified site
CPT/HCPCS: 72040

== ENCOUNTER → 2020-07-17 12:31 | Outpatient (CLI) | payer MEDICARE, SELFPAY ==
[2020-04-10 14:43] VITALS: BMI 39.5
[2020-07-17 15:21] LABS: Hematocrit 43.3 % (40-54); Hemoglobin 13.7 g/dL (13.0-16.5); Mean Corp Hgb Conc 31.6 g/dL (32-36); Mean Corpuscular Hgb 31.6 pg (27.0-32.0); Mean Platelet Vol. 9.2 fl (6.2-12.0); Platelet Count 242 K/mm3 (150-450); RBC Distribution Width CV 15.3 % (11.6-14.6); Red Blood Count 4.33 M/mm3 (4.6-6.2); White Blood Count 5.6 K/mm3 (4.4-11.0)
[2020-07-17 15:48] LABS: BNP,B-Type NATRIURETIC PEPTIDE 38.4 pg/mL (0-100)
[2020-07-17 16:32] LABS: ALB/GLOB Ratio 1.1 RATIO (0.9-2.4); AST(SGOT) 22 U/L (15-37); Alanine Aminotransfer ALT/SGPT 30 U/L (16-61); Albumin, Serum 3.4 g/dL (3.2-5.0); Alkaline Phosphatase 55 U/L (45-117); Anion Gap 6 (5-15); BUN 12 mg/dL (7-18); BUN/Creat Ratio 11.7 RATIO (10-20); Calcium,Total 9.1 mg/dL (8.5-10.1); Chloride 104 mmol/L (98-107); Cholesterol 203 mg/dL (200); Creatinine, Serum 1.03 mg/dL (0.70-1.30); EST Glomerular Filtration Rate 74 mL/min (>60); Est Glom Filt Rate - Afr Amer 89 mL/min (>60); Globulin 3.2 g/dL (2.2-4.2); Glucose 145 mg/dL (74-106); High Density Lipoprotein 44 mg/dL; Potassium 4.2 mmol/L (3.5-5.1); Protein, Total 6.6 g/dL (6.4-8.2); Sodium Level 139 mmol/L (136-145); Thyroid Stim Hormone (TSH) 2.98 uIU/mL (0.358-3.74); Triglycerides 419 mg/dL
== END ==
PROVIDERS: PCP Family Medicine; Referring Provider Family Medicine; Visit Provider Family Medicine
DX: I10 Essential (primary) hypertension (principal); E11.9 Type 2 diabetes mellitus without complications; I25.10 Atherosclerotic heart disease of native coronary artery without angina pectoris
CPT/HCPCS: 36415; 80053; 80061; 83880; 84443; 85027

== ENCOUNTER → 2021-01-09 10:45 | Outpatient (CLI) | payer MEDICARE, SELFPAY ==
[2020-04-10 14:43] VITALS: BMI 39.5
--- NOTE | 2021-01-09 10:55 | RAD_ITS ---
STUDY: X-RAY - RIGHT KNEE REASON FOR EXAM: Male, 80 years old. Pain. TECHNIQUE: 4 view(s) of the knee. COMPARISON: None. FINDINGS: Osteopenia. Moderate medial compartmental arthrosis. Normal lateral compartment. Mild arthrosis of the patellofemoral compartment. Slight lateral tilt and subluxation of the patella on the sunrise view. The soft tissue structures are unremarkable. RAD/Knee 4 or More Views IMPRESSION: Osteopenia with medial and patellofemoral compartment arthrosis. No acute abnormality or erosive changes. Electronically Signed: Vernon Funes MD at 12:43 EDT , Service support ,
== END ==
PROVIDERS: PCP Family Medicine; Referring Provider Family Medicine; Visit Provider Family Medicine
DX: M17.11 Unilateral primary osteoarthritis, right knee (principal)
CPT/HCPCS: 73564

== ENCOUNTER 2021-02-27 12:00 | Outpatient (RCR) | payer MEDICARE, SELFPAY ==
--- NOTE | 2021-01-22 11:14 | HP.PTEVAL ---
Patient's Visit Information NYASIA MOSQUEDA is a 80 year old M referred to Physical Therapy by Dr. All Montero MD with a diagnosis of Pes Anserine Bursitis. Date of Evaluation: 01/22/21 Physical Therapist: JEREMY Abraham - Visit Plan Frequency: 2x /Week Duration: 4 Weeks Plan: 2X/ week for 4 weeks for US to the vastas medialas/pes anserine area, Stretching of R HS/gastroc, quad if able, strengthening of the R hip and knee with gait training, functional activities, and HEP - Subjective Pt reports that his knee if he sits very long and goes to stand up it gives out on him. He has to stand for a few seconds before he takes any steps. In fact he has to move it a little bit before he goes. He went to Dr Montero and got meds 6-8 months ago and it worked but it came back. As far as he knows the last 2 x-rays were normal. Stairs: up and down 2 feet to a stair and uses a walking stick plus a hand rail. Sit to stand: he struggles to get out of a chair and uses B arms. He has been sleeping in a recliner for over a year now. - Pain R knee Pain Intensity (Out of 10): 0 - Objective Pt is extremely SOB walking back to the treatment rooms and took 5 min to recover. Gait: walks with decrease stance time on the R LE with a walking stick and decreased stride length. LE MMT: R hip flex 3+/5, and L hip flex 4-/5, R knee ext 4-/5 and L 4/5, R knee flex 3+/5 and L 4/5, Seated hip and 4/5 in sitting position B. Tight B gastroc and hamstrings. R knee AROM -1-103. L knee AROM 0-105. Palpation: tender along the medial aspect of the patients knee (vastas medialis) on the R. minor tenderness at pes anserine R. Tight B gastroc, HS. - Goals Goal 1:: I HEP Goal Time Frame: 4-6 Weeks Goal 2:: Increase R LE strength by 1/2 muscle grade (at time of eval: LE MMT: R hip flex 3+/5, and L hip flex 4-/5, R knee ext 4-/5 and L 4/5, R knee flex 3+/5 and L 4/5, Seated hip and 4/5 in sitting position B). Goal Time Frame: 4-6 Weeks Goal 3:: Be able to walk with more equal weight bearing between both LE's Goal Time Frame: 4-6 Weeks Goal 4:: Be able to stand up and be able to walk without feeling like his knee will give out on him. Goal Time Frame: 4-6 Weeks - Rehabilitation Potential Rehabilitation Potential: Good - Anticipated Interventions Patient/Client Instruction: Educate patient on: Condition, Plan of Care For the Purpose of:: To decrease pain, To increase ROM, To improve nutrient delivery to tissue, To improve muscle performance and motor function, To improve ability to perform ADL's, To increase tolerance to activity/condition/position, To improve performance and independence with ADL's, To decrease level of supervision to perform tasks, To improve ability of physical actions for home/community/work/leisure, To improve gait and locomotor functions, To improve health of tissue, To increase flexibility/ROM, To improve safety with gait Therapeutic Exercise to Include: Strength training, Flexibilty training, Gait and locomotor training, Passive ROM, Active ROM For the Purpose of:: To decrease pain, To increase ROM, To improve nutrient delivery to tissue, To improve muscle performance and motor function, To improve ability to perform ADL's, To increase tolerance to activity/condition/position, To improve performance and independence with ADL's, To decrease level of supervision to perform tasks, To improve ability of physical actions for home/community/work/leisure, To improve gait and locomotor functions, To improve health of tissue, To decrease soft tissue restriction, To increase flexibility/ROM, To improve safety with gait Functional Training to Include: Gait training For the Purpose of:: To improve gait and locomotor functions Manual Therapy Techniques to Include: Mobilization, Passive ROM For the Purpose of:: To decrease pain, To increase ROM, To improve nutrient delivery to tissue Ultrasound (thermal/non thermal): Yes For the Purpose of:: To decrease pain, To decrease swelling/inflammation, To increase ROM, To improve nutrient delivery to tissue, To improve muscle performance and motor function, To improve ability to perform ADL's Thank you for the opportunity to evaluate your patient. For Medicare and Medicare HMO plans, please review the plan of care and approve it. It will need to be FAXED BACK to us at [phone] for Medicare purposes. For Medicare only, by signing this I certify the plan of care. Please let me know if there are questions or concerns regarding this plan of care. Physician Signature: Date:
--- NOTE | 2021-02-27 12:30 | HP.PTDCSUM ---
It has been my pleasure to treat NYASIA MOSQUEDA referred by Dr. All Montero MD, with the diagnosis of Right Pes Anserine Bursitis Goes by Jose Martin for a total of 9 visit(s). Discharge Date: 02/27/21 Please see the following information for a summary of their discharge status. Subjective: Pt reports that his knee still bothers him when he sits too long and goes to stand up. The knee pain comes and goes. Pt reports that he has not done as much exercise as he should the last 2 weeks cause he has been so busy. Pt reports that when he goes to stand sometimes.... not everytime he feels like his knee might still give out on him. R knee Pain Intensity (Out of 10): 2 % Improvement: 25 Objective/Function: NuStep: L4 x5 min to increase LE endurance and promote blood flow (while taking some subjective). Pt is walking with more of an equal stance time with more weight that initally through the R LE with a walking stick. LE MMT: R hip flex 4/5, and L hip flex 4/5, R knee ext 4/5 and L 4/5, R knee flex 4/5 and L 4/5, Seated hip and 4/5 in sitting position B). Goal 1:: I HEP Goal Progress: Goal Met Goal 2:: Increase R LE strength by 1/2 muscle grade (at time of eval: LE MMT: R hip flex 3+/5, and L hip flex 4-/5, R knee ext 4-/5 and L 4/5, R knee flex 3+/5 and L 4/5, Seated hip and 4/5 in sitting position B). Goal 3:: Be able to walk with more equal weight bearing between both LE's Goal 4:: Be able to stand up and be able to walk without feeling like his knee will give out on him. Goal Progress: Not Progressing Plan: DC PT to HEP Discharge Comments: DC PT to HEP If there are questions or concerns regarding this patient's physical therapy, please feel free to call me at [phone]. Thank you for the referral of this patient. Sincerely, Karen Pérez, MPT Balance/Gait/Functional tests - Balance/Special Test Scores Lower Extremity Functional Score: 26
== END 2021-02-27 19:00 | disposition home or self-care (01) ==
LOC: PT 12:00
PROVIDERS: PCP Family Medicine; Referring Provider Family Medicine; Visit Provider Family Medicine
DX: M71.50 Other bursitis, not elsewhere classified, unspecified site (principal)
CPT/HCPCS: 97035; 97110; 97161; 97530

== ENCOUNTER 2021-06-04 12:22 | Outpatient (CLI) | payer MEDICARE, SELFPAY ==
[2021-06-04 15:27] LABS: ALB/GLOB Ratio 1.2 RATIO (0.9-2.4); AST(SGOT) 24 U/L (15-37); Alanine Aminotransfer ALT/SGPT 41 U/L (16-61); Albumin, Serum 3.6 g/dL (3.2-5.0); Alkaline Phosphatase 55 U/L (45-117); Anion Gap 4 (5-15); BUN 20 mg/dL (7-18); BUN/Creat Ratio 19.6 RATIO (10-20); Calcium,Total 9.5 mg/dL (8.5-10.1); Chloride 104 mmol/L (98-107); Cholesterol 181 mg/dL (200); Creatinine, Serum 1.02 mg/dL (0.70-1.30); EST Glomerular Filtration Rate 75 mL/min (>60); Est Glom Filt Rate - Afr Amer 90 mL/min (>60); Globulin 2.9 g/dL (2.2-4.2); Glucose 107 mg/dL (74-106); High Density Lipoprotein 47 mg/dL; Potassium 4.9 mmol/L (3.5-5.1); Protein, Total 6.5 g/dL (6.4-8.2); Sodium Level 140 mmol/L (136-145); Triglycerides 231 mg/dL; Very Low Density Lipoprotein 46 mg/dL (5-40)
== END 2021-06-04 23:59 | disposition short-term general hospital (02) ==
LOC: MFPLAB 12:23
PROVIDERS: PCP Family Medicine; Referring Provider Family Medicine; Visit Provider Family Medicine
DX: I10 Essential (primary) hypertension (principal)
CPT/HCPCS: 36415; 80053; 80061

== ENCOUNTER → 2021-09-26 | Outpatient (CLI) | payer MEDICARE, SELFPAY ==
--- NOTE | 2021-09-26 16:43 | RAD_ITS ---
STUDY: CHEST SERIES--PA AND LATERAL VIEWS OF 1652 HOURS ON 09/26/2021 REASON FOR EXAM: 81-year-old male with oxygen desaturation. TECHNIQUE: Standard 2 view chest x-ray series was performed per protocol. 2 PA views were obtained to evaluate the entire lungs. COMPARISON: None. FINDINGS: Mild demineralization. Previous sternal thoracotomy. Mild cardiomegaly with left ventricular cardiac configuration. No heart failure. Mild emphysema. Mild fibrotic or atelectatic changes in the left lower lobe. No confluent infiltrates, atelectasis, effusion, or pulmonary mass lesions. No free subdiaphragmatic air. RAD/Chest PA and Lateral IMPRESSION: 1. Mild emphysema. 2. Left ventricular cardiac configuration with mild cardiomegaly, but no heart failure. 3. Previous sternal thoracotomy. 4. Mild fibrotic or atelectatic changes in the left lower lobe. 5. No other active cardiopulmonary disease. 6. Mild demineralization. Previous sternal thoracotomy. Electronically Signed: Fam Kumar MD at 19:23 EDT ,
[2021-09-26 17:28] LABS: Absolute Lymphocyte Count 1.61 X10^3/uL (0.83-4.51); Absolute Neutrophil Count 6.2 X10^3/uL (2.0-7.7); Basophil# 0.04 X10^3/uL; Basophil% 0.4 % (0-1); Eosinophil# 0.05 X10^3/uL; Eosinophils% 0.6 % (0-5); Lymphocyte # 1.61 X10^3/ul (0.83-4.51); Lymphocyte % 17.8 % (19-41); Mean Corp Hgb Conc 32.5 g/dL (32-36); Mean Corpuscular Hgb 31.9 pg (27.0-32.0); Mean Corpuscular Volume 98.1 fL (80-94); Mean Platelet Vol. 9.7 fl (6.2-12.0); Monocyte# 1.02 X10^3/uL; Monocyte% 11.3 % (0-10); NRBC Flagged by Analyzer 0 % (0-5); Neutrophil # 6.23 X10^3/uL (2.7-7.7); Neutrophil % 69.1 % (47-70); Platelet Count 209 K/mm3 (150-450); RBC Distribution Width CV 14.8 % (11.6-14.6); RBC Distribution Width SD 54.7 fl (35.1-43.9); Red Blood Count 5.92 M/mm3 (4.6-6.2)
[2021-09-26 17:41] LABS: Hematocrit 58.1 % (40-54); Hemoglobin 18.9 g/dL (13.0-16.5)
[2021-09-26 18:16] LABS: BNP,B-Type NATRIURETIC PEPTIDE 23.3 pg/mL (0-100)
[2021-09-26 18:19] LABS: Vitamin B12 > 2000 pg/mL (211-911); Vitamin D,25 Hydroxy 73.4 ng/mL
[2021-09-26 18:24] LABS: AST(SGOT) 71 U/L (15-37); Alanine Aminotransfer ALT/SGPT 131 U/L (16-61); Albumin, Serum 3.7 g/dL (3.2-5.0); Alkaline Phosphatase 59 U/L (45-117); Anion Gap 8 (5-15); BUN 20 mg/dL (7-18); Calcium,Total 9.5 mg/dL (8.5-10.1); Chloride 106 mmol/L (98-107); Cholesterol 205 mg/dL (200); Creatinine, Serum 1.05 mg/dL (0.70-1.30); EST Glomerular Filtration Rate 72 mL/min (>60); Est Glom Filt Rate - Afr Amer 87 mL/min (>60); Globulin 3.6 g/dL (2.2-4.2); Glucose 102 mg/dL (74-106); High Density Lipoprotein 39 mg/dL; Potassium 3.8 mmol/L (3.5-5.1); Protein, Total 7.3 g/dL (6.4-8.2); Sodium Level 140 mmol/L (136-145); Thyroid Stim Hormone (TSH) 1.36 uIU/mL (0.358-3.74); Triglycerides 146 mg/dL; Very Low Density Lipoprotein 29 mg/dL (5-40)
[2021-09-27 10:39] LABS: Amylase 49 U/L (25-115); GGTP 72 U/L (15-85); Lipase 302 U/L (73-393)
== END | disposition home or self-care (01) ==
LOC: MTLAB 16:41
PROVIDERS: PCP Family Medicine; Referring Provider Family Medicine; Visit Provider Family Medicine
DX: R09.02 Hypoxemia (principal); E11.9 Type 2 diabetes mellitus without complications; R53.83 Other fatigue; E55.9 Vitamin D deficiency, unspecified; E53.8 Deficiency of other specified B group vitamins; R79.89 Other specified abnormal findings of blood chemistry
CPT/HCPCS: 36415; 71046; 80053; 80061; 82150; 82306; 82607; 82977; 83690; 83880; 84443; 85025; 87086; 87088

== ENCOUNTER → 2021-09-27 | Outpatient (CLI) | payer MEDICARE, SELFPAY ==
--- NOTE | 2021-09-27 10:40 | US_ITS ---
STUDY: ABDOMINAL ULTRASOUND - RIGHT UPPER QUADRANT REASON FOR VISIT: Male, 81 years old. ABDOMEN PAIN Elevated LFTs and Bilirubin TECHNIQUE: Ultrasound evaluation of the right upper quadrant was performed with real-time and static montgomery-scale imaging. TECHNICAL QUALITY: Adequate. COMPARISON: None. FINDINGS: Liver: There is increased echogenicity consistent with fatty infiltration. The bile ducts are within normal limits. Due to patient''s large body habitus, it is difficult to evaluate vascular flow in the liver. There is no demonstrated mass lesion. Gallbladder: Normal distended gallbladder. The gallbladder wall measures 1.7 mm. There is a negative sonographic Mora''s sign. There is no pericholecystic fluid. There are multiple echogenic structures within the gallbladder, consistent with multiple gallstones. Common Bile Duct (C.B.D.): It is not seen. There is too much overlying bowel gas. Pancreas: It is not visualized. There is too much overlying bowel gas. Right Kidney: Normal size of the right kidney. The right kidney measures 13.9 cm. . Normal renal cortex. There is no demonstrated renal mass or cyst. There is no right hydronephrosis. Nonobstructing stone in the right kidney measuring 4 mm. Aorta: It is not visualized. There is too much overlying bowel gas. . US/Abdomen Limited IMPRESSION: Fatty liver. Nonobstructing stone in the right kidney measuring 4 mm. Electronically Signed: Rikki Spain MD at 16:52 EDT ,
== END | disposition home or self-care (01) ==
LOC: US 10:35
PROVIDERS: PCP Family Medicine; Referring Provider Family Medicine; Visit Provider Family Medicine
DX: R17 Unspecified jaundice (principal)
CPT/HCPCS: 76705

== ENCOUNTER → 2021-10-01 | Outpatient (CLI) | payer MEDICARE, SELFPAY ==
[2021-10-01 16:21] LABS: ALB/GLOB Ratio 0.9 RATIO (0.9-2.4); AST(SGOT) 53 U/L (15-37); Alanine Aminotransfer ALT/SGPT 104 U/L (16-61); Albumin, Serum 3.4 g/dL (3.2-5.0); Alkaline Phosphatase 65 U/L (45-117); Anion Gap 6 (5-15); BUN 20 mg/dL (7-18); BUN/Creat Ratio 17.2 RATIO (10-20); Calcium,Total 9.6 mg/dL (8.5-10.1); Chloride 105 mmol/L (98-107); Creatinine, Serum 1.16 mg/dL (0.70-1.30); EST Glomerular Filtration Rate 64 mL/min (>60); Est Glom Filt Rate - Afr Amer 78 mL/min (>60); Globulin 3.7 g/dL (2.2-4.2); Glucose 117 mg/dL (74-106); Potassium 4.7 mmol/L (3.5-5.1); Protein, Total 7.1 g/dL (6.4-8.2); Sodium Level 138 mmol/L (136-145)
== END | disposition home or self-care (01) ==
LOC: MFPLAB 12:04
PROVIDERS: PCP Family Medicine; Referring Provider Family Medicine; Visit Provider Family Medicine
DX: I25.10 Atherosclerotic heart disease of native coronary artery without angina pectoris (principal); R79.89 Other specified abnormal findings of blood chemistry
CPT/HCPCS: 36415; 80053

== ENCOUNTER 2021-11-08 10:06 | Inpatient (IN) | payer MEDICARE, SELFPAY ==
[2021-11-08] VITALS (12 sets, daily range): BP systolic 86–133; BP diastolic 67–77; PULSE 62–86; RESP 12–20; TEMP 36.2–37; O2SAT 91–99; BMI 38.0; BMI 33.7
--- NOTE | 2021-11-08 11:38 | CT_ITS ---
STUDY: CT BRAIN WITHOUT CONTRAST REASON FOR EXAM: Male, 81 years old. Syncope, ? Head injury RADIATION DOSAGE (If Supplied By Facility): CTDIvol = ( 44.99 ) mGy, DLP = ( 880.47 ) mGycm TECHNIQUE: Transaxial CT imaging of the brain was performed without administration of intravenous contrast material. Individualized dose optimization techniques were used for this CT. COMPARISON: No relevant priors. FINDINGS: Normal soft tissue structures. Normal calvarium. There is mild cerebral atrophy with widening of the extra-axial spaces and ventricular dilatation. There are areas of decreased attenuation within the white matter tracts of the supratentorial brain, consistent with microvascular disease changes. There are small punctate calcifications of the basal ganglia which are seen in the aging brain as a normal variant. Normal brainstem. There is mild cerebellar atrophy. There is no intracranial hemorrhage. There are no findings of an acute ischemic infarction. Atherosclerotic calcification of the cavernous portions of the internal carotid arteries bilaterally. Normal visualized paranasal sinuses. CT/Brain/Head without Contrast IMPRESSION: Chronic involutional changes of the brain. Electronically Signed: Naresh Khanna MD at 12:34 EDT ,
--- NOTE | 2021-11-08 11:39 | EKG12_ITS ---
Test Reason : Blood Pressure : / mmHG Vent. Rate : 065 BPM Atrial Rate : 065 BPM P-R Int : 170 ms QRS Dur : 142 ms QT Int : 474 ms P-R-T Axes : 045 -86 026 degrees QTc Int : 492 ms Normal sinus rhythm Right bundle branch block Left anterior fascicular block Bifascicular block Septal infarct , age undetermined Abnormal ECG Confirmed by LISE OBRIEN, PEPPER ([id number]), primer expeditor and drier ANGELICA SALCEDO ([id number]) on 11/11/2021 12:38:45 PM Referred By: ELIZ Confirmed By:PEPPER LEZAMA MD
[2021-11-08] MEDS: 0.9% Normal Saline 1,000 ML 1000 ML IV (11:59)
[2021-11-08 12:13] LABS: Absolute Neutrophil Count 6.6 X10^3/uL (2.0-7.7); Basophil# 0.04 X10^3/uL; Basophil% 0.4 % (0-1); Eosinophil# 0.03 X10^3/uL; Eosinophils% 0.3 % (0-5); Hemoglobin 14.6 g/dL (13.0-16.5); Lymphocyte % 18.1 % (19-41); Mean Corp Hgb Conc 32.4 g/dL (32-36); Mean Corpuscular Hgb 32.2 pg (27.0-32.0); Mean Corpuscular Volume 99.1 fL (80-94); Mean Platelet Vol. 9.8 fl (6.2-12.0); Monocyte# 0.91 X10^3/uL; Monocyte% 9.7 % (0-10); NRBC Flagged by Analyzer 0 % (0-5); Neutrophil # 6.61 X10^3/uL (2.7-7.7); Neutrophil % 70.5 % (47-70); Platelet Count 235 K/mm3 (150-450); RBC Distribution Width CV 15.5 % (11.6-14.6); Red Blood Count 4.54 M/mm3 (4.6-6.2); White Blood Count 9.4 K/mm3 (4.4-11.0)
--- NOTE | 2021-11-08 12:21 | RAD_ITS ---
STUDY: X-RAY CHEST REASON FOR EXAM: Male, 81 years old. Syncope TECHNIQUE: Single AP portable view of the chest. COMPARISON: Comparison is made with prior study 09/26/2021. FINDINGS: EKG electrodes are seen. Hyperinflation. Stable mild increased linear markings at the lung bases suggestive of mild linear scarring. There is no demonstrated pleural abnormality. Sternal cerclage wires and vascular clips are present from a prior sternotomy and coronary artery bypass graft procedure (CABG). Cardiomegaly. Normal mediastinum and aniceto. Normal visualized pulmonary arteries. There is atherosclerotic calcification of the aortic arch with tortuosity. Normal visualized thoracic spine. Normal visualized ribs, clavicles, and shoulders. There is no demonstrated abnormality of the visualized soft tissue structures of the upper abdomen. RAD/Chest 1 View (Portable) IMPRESSION: Cardiomegaly. Mild degree of stable increased markings at the lung bases suggestive of scarring. Electronically Signed: Naresh Khanna MD at 12:35 EDT ,
[2021-11-08 12:28] LABS: International Normalized Ratio 1.1; Prothrombin Time (Protime)PT. 13.6 SECONDS (11.7-14.9)
[2021-11-08 12:29] LABS: Partial Thromboplast Time 26.3 Seconds (24.1-36.2)
[2021-11-08 12:32] LABS: ALB/GLOB Ratio 0.9 RATIO (0.9-2.4); AST(SGOT) 37 U/L (15-37); Alanine Aminotransfer ALT/SGPT 69 U/L (16-61); Alkaline Phosphatase 54 U/L (45-117); Anion Gap 5 (5-15); BUN 29 mg/dL (7-18); Calcium,Total 9.4 mg/dL (8.5-10.1); Chloride 104 mmol/L (98-107); Creatinine, Serum 1.16 mg/dL (0.70-1.30); EST Glomerular Filtration Rate 64 mL/min (>60); Est Glom Filt Rate - Afr Amer 78 mL/min (>60); Estimated Creatinine Clearance 54.82 ml/min; Globulin 3.2 g/dL (2.2-4.2); Glucose 128 mg/dL (74-106); Potassium 3.9 mmol/L (3.5-5.1); Protein, Total 6.2 g/dL (6.4-8.2); Sodium Level 141 mmol/L (136-145); Troponin-I HS 9 pg/mL (3.0-78.0)
[2021-11-08 12:42] LABS: Lactic Acid 1.6 mmol/L (0.4-1.9)
[2021-11-08 13:27] LABS: Bacteria 0 SEEN /hpf (None Seen); White Blood Cells 0 SEEN /hpf (0-5)
[2021-11-08 13:37] LABS: Color, Urine Yellow (Yellow); Glucose, Dipstick Normal (Normal); Ketone-Dipstick Negative (Negative); Leukocyte Esterase-Dipstick Negative /ul (Negative); Nitrite-Dipstick Negative (Negative); Occult Blood-Urine 150 /ul (Negative); Protein-Dipstick Negative (Negative); Urine Bilirubin Dipstick Negative (Negative); Urine Clarity Sl. Cloudy (Clear); Urine Urobilinogen Normal (Normal)
[2021-11-08 13:45] LABS: Amorphous Sediment 2+ PHOS; Mucous, Urine 2+ /hpf (<or=2+); Red Blood Cells-Urine 25-50 SEEN /hpf (0-5); Squamous Epithelial Cells - UA 0-5 SEEN /hpf (0-5)
--- NOTE | 2021-11-08 14:01 | EDS_ITS ---
HPI HPI - Fall History of Present Illness Chief Complaint: Fall Informant: patient and family Narrative Narrative: Patient is an 81-year-old male with history of coronary artery disease status post CABG, hypertension, BPH and hyperlipidemia presenting for falls. Patient had 2 falls last night. He thinks he passed out because he would just wake up on the ground. He is complained of some mild lower back pain. He does live home alone. Is not on any blood thinners. He does not think he hit his head but is not sure. Son also notes he is been more confused for the past few months. Patient is complain of some mild low back pain. States he feels mildly short of breath. Did have an episode of stool incontinence after his last fall that was bloody as well. Per EMS he was 91% on room air and placed on supplemental oxygen. 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 Bifascicular block BPH (benign prostatic hyperplasia) Depression Essential (primary) hypertension Hyperlipidemia Incomplete right bundle branch block Obesity Old anterior myocardial infarction (04/29/04) Pericardial effusion (02/2018) Pneumothorax Postoperative atrial fibrillation Right bundle branch block Sleep apnea Syncope and collapse Type 2 diabetes mellitus Home Medications losartan 50 mg tablet 50 mg PO DAILY 02/23/18 [History Last Taken Unknown] metformin 500 mg tablet,extended release 24 hr 500 mg PO QHS 02/23/18 [History Last Taken Unknown] metoprolol tartrate 25 mg tablet 25 mg PO BID 02/23/18 [History Last Taken 02/24/18 06:00] pravastatin 40 mg tablet 40 mg PO QHS 02/23/18 [History Last Taken Unknown] tamsulosin 0.4 mg capsule 0.4 mg PO QHS 02/23/18 [History Last Taken Unknown] bupropion HCl 300 mg 24 hr tablet, extended release 300 mg PO DAILY 02/24/18 [History Last Taken Unknown] cyanocobalamin (vitamin B-12) 2,500 mcg tablet 2,500 mcg PO DAILY 02/24/18 [History Last Taken Unknown] fish, borage, flaxseed oils-omega 3,6,9 cb #1 400 mg-400 mg-400 mg cap 800 mg PO BID 02/24/18 [History Last Taken Unknown] nitroglycerin 0.4 mg sublingual tablet 0.4 mg sublingual Q5-15M PRN chest pain #25 tabs 02/24/18 [Rx Last Taken 02/24/18 07:30] escitalopram oxalate 10 mg tablet 20 mg PO DAILY 02/04/19 [History Last Taken Unknown] potassium chloride 10 mEq capsule,extended release 10 meq PO BID 02/04/19 [History Last Taken Unknown] aspirin 81 mg chewable tablet 81 mg PO DAILY@0800 10/06/19 [History Last Taken Unknown] cholecalciferol (vitamin D3) 1,250 mcg (50,000 unit) capsule 50,000 unit PO QWEEK 10/06/19 [History Last Taken Unknown] multivitamin 1 tab PO DAILY 10/06/19 [History Last Taken Unknown] albuterol sulfate 90 mcg/actuation aerosol inhaler (ProAir HFA) 2 puff inhalation Q6H PRN wheezing 02/19/21 [History Last Taken Unknown] icosapent ethyl 1 gram capsule 2 g PO QHS 02/19/21 [History Last Taken Unknown] magnesium oxide 400 mg PO BID 02/19/21 [History Last Taken Unknown] furosemide 40 mg tablet (Lasix) 60 mg PO BID #270 tabs 03/26/21 [Rx Last Taken Unknown] fluticasone propionate 50 mcg/actuation nasal spray,suspension 2 ea intranasal DAILY PRN Congestion 11/08/21 [History Last Taken Unknown] Allergy/AdvReac Type Severity Reaction Status Date / Time No Known Allergies Allergy Verified 02/19/21 12:22 Family History Mother Cancer Surgical History H/O coronary artery bypass surgery (03/01/18) H/O inguinal hernia repair H/O rectal polypectomy History of coronary artery stent placement (04/29/04) History of herniorrhaphy S/P pericardiocentesis (02/2018) Social History Smoking Status: Never smoker ROS ROS ED Constitutional Constitutional ED: Denies chills, fever(s) or sweats Eyes Eyes: Denies blurry vision or change in vision ENT ENT ED: Denies rhinorrhea or sore throat Cardiovascular Cardiovascular: Denies chest pain or palpitations Respiratory/Chest Respiratory/Chest: Reports dyspnea and dyspnea on exertion; Denies cough Gastrointestinal Gastrointestinal: Reports diarrhea and other Details: Bright red blood per rectum ; Denies abdominal pain, nausea or vomiting Genitourinary Genitourinary ED: Reports urinary frequency; Denies dysuria or hematuria Musculoskeletal Musculoskeletal: Reports back pain; Denies arthralgias or myalgias Integumentary Reports Abrasions and other Details: right knee abrasion ; Denies rash Neurologic Neurologic: Reports other Details: Positive confusion ; Denies headache(s), paresthesias or weakness Psychiatric Psychiatric: Denies anxiety or depression Hematologic/Lymphatic Hematologic/Lymphatic: Denies easy bleeding or easy bruising EXAM Physical Exam Const Vital Signs: 11/08/21 10:14 11/08/21 10:17 11/08/21 10:22 Temperature 98.5 F 98.5 F Temperature Source Oral Oral Pulse Rate 62 62 Respiratory Rate 18 18 Respiratory Effort Normal Non-Labored Respiratory Depth Normal Respiratory Pattern Normal Blood Pressure 124/71 H 124/71 H Blood Pressure Mean 88 88 Pulse Ox 91 99 98 Oxygen Delivery Method Room Air Nasal Cannula Room Air Oxygen Flow Rate (L/min) 2 11/08/21 12:01 11/08/21 13:41 Temperature 98.6 F 98.5 F Temperature Source Oral Oral Pulse Rate 67 64 Respiratory Rate 19 H 12 Respiratory Effort Respiratory Depth Respiratory Pattern Blood Pressure 133/77 H 124/67 H Blood Pressure Mean 95 86 Pulse Ox 95 99 Oxygen Delivery Method Room Air Nasal Cannula Oxygen Flow Rate (L/min) 4 Positive well nourished, well developed and obese General Appearance ED: well developed and NAD Nutritional Appearance: obese HEENT Reports normocephalic HEENT Narrative: Dry mucosal membranes atraumatic; Negative for trauma Eyes PERRL and EOMs intact bilaterally Neck full ROM Chest Wall inspection of chest normal Resp normal respiratory effort and no retractions Resp Narrative: Diminished breath sounds at the bases Cardio regular rate, regular rhythm and no murmurs Cardio Narrative: 2+ bilateral DP pulses GI non-tender, non-distended and no masses GI Narrative: Protuberant abdomen. Dark red blood on rectal exam Back/Spine no CVA tenderness Back/Spine Narrative: No midline spinal tenderness Neuro moves all extremities, no focal motor deficits and no sensory deficits noted Jesusita Coma Scale: document GCS findings Spontaneous Obeys Commands Oriented 15 Sensorium / Orientation: alert, oriented to person and confused Psych mental status grossly normal Skin Skin Narrative: 4 cm superficial abrasion to the right anterior knee. No active bleeding. Chronic venous stasis changes of the lower extremities. MDM MDM MDM Narrative Medical decision making narrative: Evaluated for 2 episodes of syncope that occurred at home and now diarrhea with bright red blood per rectum. On exam patient slightly somnolent and confused but in no acute distress. He is requiring some supplemental oxygen. I suspect he is just taking shallow respirations. Patient's hemoglobin is normal at this time at 14.6. His BUN is mildly elevated from his baseline at 29. No other significant laboratory abnormalities. Type and screen is ordered however patient does not appear to have any active bleeding. He does have red blood on his rectal exam. Given the elevated BUN and GI bleed he is given IV Protonix in case this is an upper GI bleed. EKG does not show any acute ischemic process. Urinalysis does show blood but no signs of infection. Patient be admitted for further evaluation of his syncope and GI bleed. Patient and son are agreeable with this plan of care. He remains hemodynamically stable [facility] in [facility]. No physical exam findings consistent with acute fracture associated with his falls. CT of his brain is negative. Lab Data Attestation: I reviewed the patient's lab results. Labs: Laboratory Results - last 24 hr 11/08/21 11/08/21 11/08/21 10:20 10:20 10:20 WBC 9.4 RBC 4.54 L Hgb 14.6 Hct 45.0 MCV 99.1 H MCH 32.2 H MCHC 32.4 RDW Std Deviation 57.0 H RDW Coeff of Delfina 15.5 H Plt Count 235 MPV 9.8 Immature Gran % (Auto) 1.000 H Neut % (Auto) 70.5 H Lymph % (Auto) 18.1 L Lares % (Auto) 9.7 Eos % (Auto) 0.3 Baso % (Auto) 0.4 Absolute Neuts (auto) 6.6 Absolute Lymphs (auto) 1.70 Nucleated RBC % 0 PT 13.6 INR 1.1 APTT 26.3 Sodium 141 Potassium 3.9 Chloride 104 Carbon Dioxide 32.0 Anion Gap 5 BUN 29 H Creatinine 1.16 Estim Creat Clear Calc 54.82 Est GFR (MDRD) Af Amer 78 Est GFR (MDRD) Non-Af 64 BUN/Creatinine Ratio 25.0 H Glucose 128 H Lactic Acid Calcium 9.4 Total Bilirubin 1.40 H AST 37 ALT 69 H Alkaline Phosphatase 54 Troponin I High Sens 9 Total Protein 6.2 L Albumin 3.0 L Globulin 3.2 Albumin/Globulin Ratio 0.9 Urine Color Urine Clarity Urine pH Ur Specific [place] Urine Protein Urine Glucose (UA) Urine Ketones Urine Occult Blood Urine Nitrite Urine Bilirubin Urine Urobilinogen Ur Leukocyte Esterase Urine RBC Urine WBC Ur Squamous Epith Cells Amorphous Sediment Urine Bacteria Urine Mucus Blood Type Antibody Screen 11/08/21 11/08/21 11/08/21 10:20 10:20 13:20 WBC RBC Hgb Hct MCV MCH MCHC RDW Std Deviation RDW Coeff of Delfina Plt Count MPV Immature Gran % (Auto) Neut % (Auto) Lymph % (Auto) Lares % (Auto) Eos % (Auto) Baso % (Auto) Absolute Neuts (auto) Absolute Lymphs (auto) Nucleated RBC % PT INR APTT Sodium Potassium Chloride Carbon Dioxide Anion Gap BUN Creatinine Estim Creat Clear Calc Est GFR (MDRD) Af Amer Est GFR (MDRD) Non-Af BUN/Creatinine Ratio Glucose Lactic Acid 1.6 Calcium Total Bilirubin AST ALT Alkaline Phosphatase Troponin I High Sens Total Protein Albumin Globulin Albumin/Globulin Ratio Urine Color Yellow Urine Clarity Sl. Cloudy Urine pH 7.0 Ur Specific [place] 1.010 Urine Protein Negative Urine Glucose (UA) Normal Urine Ketones Negative Urine Occult Blood 150 H Urine Nitrite Negative Urine Bilirubin Negative Urine Urobilinogen Normal Ur Leukocyte Esterase Negative Urine RBC 25-50 SEEN Urine WBC 0 SEEN Ur Squamous Epith Cells 0-5 SEEN Amorphous Sediment 2+ PHOS Urine Bacteria 0 SEEN Urine Mucus 2+ Blood Type AB POSITIVE Antibody Screen NEGATIVE Radiography Chest X-Ray - ED: 1 View, Read by ED Physician, Read by Radiologist, No Acute Disease and Cardiomegaly Diagnostic Testing: Clinical Impression(s) from Imaging Studies Brain CT 11/08/21 11:38 IMPRESSION: Chronic involutional changes of the brain. Electronically Signed: Naresh Khanna MD at 12:34 EDT , Chest X-Ray 11/08/21 12:21 IMPRESSION: Cardiomegaly. Mild degree of stable increased markings at the lung bases suggestive of scarring. Electronically Signed: Naresh Khanna MD at 12:35 EDT , Rhythm Strip Rhythm Strip: Sinus Rhythm Rate: 65 Ectopy: None EKG Initial EKG: Attestation: I personally reviewed and interpreted this EKG as follows: Interpretation: Sinus Rhythm Comments: Normal sinus rhythm rate of 65 Left axis deviation Bifascicular block with right bundle branch block and left anterior fascicular block ST depressions in V2 and V3 with no reciprocal changes Discharge Plan Triage Chief Complaint: Fall ED Provider: Ophelia Cardona Dx/Rx/DC Orders Clinical Impression: Syncope and collapse, Acute GI bleeding, Altered mental status Prescriptions: No Action nitroglycerin 0.4 mg tablet, sublingual 0.4 mg SUBLINGUAL Q5-15M PRN (Reason: chest pain) Qty: 25 6RF Rx Instructions: until response; do not exceed 3 doses per episode metoprolol tartrate 25 mg tablet 25 mg PO BID losartan 50 mg tablet 50 mg PO DAILY pravastatin 40 mg tablet 40 mg PO QHS tamsulosin 0.4 mg capsule 0.4 mg PO QHS metformin 500 mg tablet extended release 24 hr 500 mg PO QHS potassium chloride 10 mEq capsule, extended release 10 meq PO BID magnesium oxide 400 mg capsule 400 mg magnesium capsule 400 mg PO BID escitalopram oxalate 10 mg tablet 20 mg PO DAILY cholecalciferol (vitamin D3) 1,250 mcg (50,000 unit) capsule 50,000 unit PO QWEEK Label Comments: TAKE 1 CAPSULE BY MOUTH ONCE A WEEK multivitamin Tablet 1 tab PO DAILY icosapent ethyl 1 gram capsule 2 g PO QHS Label Comments: TAKE 2 CAPSULES BY MOUTH AT BEDTIME albuterol sulfate [ProAir HFA] 90 mcg/actuation HFA aerosol inhaler 2 puff inhalation Q6H PRN (Reason: wheezing) bupropion HCl 300 MG tablet extended release 24 hr 300 mg PO DAILY fish,bora,flax oils-[id number] 400 MG capsule 800 mg PO BID cyanocobalamin (vitamin B-12) 2,500 MCG tablet 2,500 mcg PO DAILY aspirin 81 mg tablet,chewable 81 mg PO DAILY@0800 fluticasone propionate 50 mcg/actuation spray,suspension 2 ea INTRANASAL DAILY PRN (Reason: Congestion) Label Comments: USE 2 SPRAY(S) IN EACH NOSTRIL ONCE DAILY furosemide [Lasix] 40 mg tablet 60 mg PO BID Qty: 270 3RF Primary Care Provider: All Montero Referrals: All Montero MD [Primary Care Provider] - Disposition Disposition: Acute Care Hospital [facility]
--- NOTE | 2021-11-08 14:34 | HP.PCM_ITS ---
Documented by User: KORIN Castellon 11/08/21 14:52 HPI - General General Date of Admission: 11/08/21 Date of Service: 11/08/21 Chief Complaint: Syncope HPI Narrative NYASIA MOSQUEDA, is a 81 M who presents with complaints of syncope. Patient states that he has had 2 episodes of syncope in the past 24 hours. Patient's son is at bedside and states that when he found him he had had a bowel movement which was bloody in appearance. Patient states that he has never had a GI bleed before. Patient states that he has never had syncopal episodes prior to this however patient does state that he has been feeling lightheaded for the past couple days. Patient reports medical history of hypertension, CABG x5, hyperlipidemia, BPH, diabetes mellitus type 2. Patient is not currently on anticoagulation, aspirin 81 mg daily. 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) Pericardial effusion (02/2018) Pneumothorax Postoperative atrial fibrillation Right bundle branch block Sleep apnea Syncope and collapse Type 2 diabetes mellitus Home Medications losartan 50 mg tablet 50 mg PO DAILY 02/23/18 [History Last Taken 11/08/21] metformin 500 mg tablet,extended release 24 hr 500 mg PO QHS 02/23/18 [History Last Taken 11/07/21] metoprolol tartrate 25 mg tablet 25 mg PO BID 02/23/18 [History Last Taken 11/08/21] pravastatin 40 mg tablet 40 mg PO QHS 02/23/18 [History Last Taken 11/07/21] tamsulosin 0.4 mg capsule 0.4 mg PO QHS 02/23/18 [History Last Taken 11/07/21] bupropion HCl 300 mg 24 hr tablet, extended release 300 mg PO DAILY 02/24/18 [History Last Taken 11/08/21] cyanocobalamin (vitamin B-12) 2,500 mcg tablet 2,500 mcg PO DAILY 02/24/18 [History Last Taken 11/08/21] fish, borage, flaxseed oils-omega 3,6,9 cb #1 400 mg-400 mg-400 mg cap 800 mg PO BID 02/24/18 [History Last Taken 11/08/21] nitroglycerin 0.4 mg sublingual tablet 0.4 mg sublingual Q5-15M PRN chest pain #25 tabs 02/24/18 [Rx Last Taken 02/24/18 07:30] potassium chloride 10 mEq capsule,extended release 10 meq PO BID 02/04/19 [History Last Taken 11/08/21] aspirin 81 mg chewable tablet 81 mg PO DAILY@0800 10/06/19 [History Last Taken 11/08/21] cholecalciferol (vitamin D3) 1,250 mcg (50,000 unit) capsule 50,000 unit PO FR 10/06/19 [History Last Taken 11/02/21] albuterol sulfate 90 mcg/actuation aerosol inhaler (ProAir HFA) 2 puff inhalation Q6H PRN wheezing 02/19/21 [History Last Taken Unknown] furosemide 40 mg tablet (Lasix) 60 mg PO BID #270 tabs 03/26/21 [Rx Last Taken 11/08/21] escitalopram oxalate 20 mg tablet 20 mg PO DAILY DEPRESSION 11/08/21 [History Last Taken 11/08/21] magnesium oxide 400 mg PO BID SUPPLEMENT 11/08/21 [History Last Taken 11/08/21] xrciyrls-tku-ffomv acid 300 mcg-lycopene 600 mcg-lutein 300 mcg tablet (Centrum Silver Men) 1 tab PO DAILY 11/08/21 [History Last Taken 11/07/21] Allergy/AdvReac Type Severity Reaction Status Date / Time No Known Allergies Allergy Verified 02/19/21 12:22 Family History Mother Cancer Surgical History H/O coronary artery bypass surgery (03/01/18) H/O inguinal hernia repair H/O rectal polypectomy History of coronary artery stent placement (04/29/04) History of herniorrhaphy S/P pericardiocentesis (02/2018) Social History Smoking Status: Never smoker ROS Constitutional Constitutional: Reports fatigue and weakness; Denies anorexia, change in weight or chills Cardiovascular Cardiovascular: Reports dyspnea on exertion and syncope; Denies chest pain, edema or palpitations Respiratory/Chest Respiratory/Chest: Denies cough, shortness of breath at rest, shortness of breath with exertion or wheezing Gastrointestinal Gastrointestinal: Reports melena; Denies abdominal pain, constipation or diarrhea Genitourinary Genitourinary: Denies dysuria Musculoskeletal Musculoskeletal: Reports back pain; Denies extremity pain, joint pain or joint stiffness Integumentary Integumentary: Denies dry skin Neurologic Neurologic: Reports weakness; Denies abnormal speech, confusion or focal weakness Psychiatric Psychiatric: Denies anxiety or depression Endocrine Endocrinology: Denies change in body appearance Hematologic/Lymphatic Hematologic/Lymphatic: Denies anemia Vital Signs Vital Signs Vital Signs: 11/08/21 10:14 11/08/21 10:17 11/08/21 10:22 Temperature 98.5 F 98.5 F Temperature Source Oral Oral Pulse Rate 62 62 Respiratory Rate 18 18 Respiratory Effort Normal Non-Labored Respiratory Depth Normal Respiratory Pattern Normal Blood Pressure 124/71 H 124/71 H Blood Pressure Mean 88 88 Pulse Ox 91 99 98 Oxygen Delivery Method Room Air Nasal Cannula Room Air Oxygen Flow Rate (L/min) 2 11/08/21 12:01 11/08/21 13:41 Temperature 98.6 F 98.5 F Temperature Source Oral Oral Pulse Rate 67 64 Respiratory Rate 19 H 12 Respiratory Effort Respiratory Depth Respiratory Pattern Blood Pressure 133/77 H 124/67 H Blood Pressure Mean 95 86 Pulse Ox 95 99 Oxygen Delivery Method Room Air Nasal Cannula Oxygen Flow Rate (L/min) 4 Weight Weight: 280 lb Body Mass Index (BMI) 38.0 Physical Exam Const alert, oriented x3 and no apparent distress General Appearance: cooperative HEENT normocephalic Neck supple General: trachea midline Lymph Lymphatic: no lymphadenopathy noted Resp normal respiratory effort, normal air movement and clear to auscultation bilaterally Cardio regular rate, regular rhythm, S1 normal heart sound, S2 normal heart sound and peripheral pulses 2+ throughout GI normal to inspection, nondistended, normoactive bowel sounds, soft to palpation and non-tender Extremity normal capillary refill General Extremity: no tenderness to palpation of joints or extremities Skin Wound Narrative: Abrasion to right knee noted, no signs or symptoms of infection. Neuro oriented x3, moves all extremities, no focal motor deficits and no sensory deficits noted Sensorium / Orientation: awake Psych thought process normal, cooperative and affect normal Results Lab / Micro Data Result Diagrams: 11/08/21 10:20 11/08/21 10:20 Labs: Laboratory Results - last 24 hr 11/08/21 10:20: WBC 9.4, RBC 4.54 L, Hgb 14.6, Hct 45.0, MCV 99.1 H, MCH 32.2 H, MCHC 32.4, RDW Std Deviation 57.0 H, RDW Coeff of Delfina 15.5 H, Plt Count 235, MPV 9.8, Immature Gran % (Auto) 1.000 H, Neut % (Auto) 70.5 H, Lymph % (Auto) 18.1 L , [place] % (Auto) 9.7, Eos % (Auto) 0.3, Baso % (Auto) 0.4, Absolute Neuts (auto) 6.6, Absolute Lymphs (auto) 1.70, Nucleated RBC % 0 11/08/21 10:20: PT 13.6, INR 1.1, APTT 26.3 11/08/21 10:20: Sodium 141, Potassium 3.9, Chloride 104, Carbon Dioxide 32.0, Anion Gap 5, BUN 29 H, Creatinine 1.16, Estim Creat Clear Calc 54.82, Est GFR (MDRD) Af Amer 78, Est GFR (MDRD) Non-Af 64, BUN/Creatinine Ratio 25.0 H, Glucose 128 H, Calcium 9.4, Total Bilirubin 1.40 H, AST 37, ALT 69 H, Alkaline Phosphatase 54, Troponin I High Sens 9, Total Protein 6.2 L, Albumin 3.0 L, Globulin 3.2, Albumin/Globulin Ratio 0.9 11/08/21 10:20: Lactic Acid 1.6 11/08/21 10:20: Blood Type AB POSITIVE, Antibody Screen NEGATIVE 11/08/21 13:20: Urine Color Yellow, Urine Clarity Sl. Cloudy, Urine pH 7.0, Ur Specific [place] 1.010, Urine Protein Negative, Urine Glucose (UA) Normal, Urine Ketones Negative, Urine Occult Blood 150 H, Urine Nitrite Negative, Urine Bilirubin Negative, Urine Urobilinogen Normal, Ur Leukocyte Esterase Negative, Urine RBC 25-50 SEEN, Urine WBC 0 SEEN, Ur Squamous Epith Cells 0-5 SEEN, Amorphous Sediment 2+ PHOS, Urine Bacteria 0 SEEN, Urine Mucus 2+ Rhythm Strip Rhythm Strip: Sinus Rhythm Rate: 65 Ectopy: None Radiology Impression Brain CT 11/08/21 11:38 IMPRESSION: Chronic involutional changes of the brain. Electronically Signed: Naresh Khanna MD at 12:34 EDT , Chest X-Ray 11/08/21 12:21 IMPRESSION: Cardiomegaly. Mild degree of stable increased markings at the lung bases suggestive of scarring. Electronically Signed: Naresh Khanna MD at 12:35 EDT , Assessment & Plan Assessment/Plan (1) Syncope and collapse: (2) Acute GI bleeding: PLAN: Plan 1. Acute GI bleed -Admit to PCU -Patient typed and screened in ER, hemoglobin currently stable -Continue IV Protonix -Trend H&H 2. Weakness -Per patient weakness is gotten worse over the past few weeks -PT and OT to eval and treat -Fall precautions ordered 3. Syncope with collapse -Echocardiogram ordered -Orthostatic vital signs -Fall precautions 4. Hypertension -Vital signs per protocol, currently stable -Continue furosemide, losartan, metoprolol 5. Diabetes mellitus type 2 -ACH S blood sugars with sliding scale insulin -Hold metformin 6. Hyperlipidemia -Continue pravastatin 7. BPH -Continue tamsulosin 8. Depression -Continue bupropion and escitalopram DVT prophylaxis-SCDs This patient was seen by Ignacia hWitlock NP-C under the supervision of Dr. Hernandez. 31 minutes spent in clinical coordination of patient's plan of care. Documented by User: Dr. Siddharth Hernandez MD 11/08/21 16:03 HPI - General General Date of Admission: 11/08/21 HPI Narrative NYASIA MOSQUEDA, is a 81 M who presents with complaints of syncope. Patient states that he has had 2 episodes of syncope in the past 24 hours. Patient's son is at bedside and states that when he found him he had had a bowel movement which was bloody in appearance. Patient states that he has never had a GI bleed before. Patient states that he has never had syncopal episodes prior to this however patient does state that he has been feeling lightheaded for the past couple days. Patient reports medical history of hypertension, CABG x5, hyperlipidemia, BPH, diabetes mellitus type 2. Patient is not currently on a nticoagulation, aspirin 81 mg daily. 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) Pericardial effusion (02/2018) Pneumothorax Postoperative atrial fibrillation Right bundle branch block Sleep apnea Syncope and collapse Type 2 diabetes mellitus Home Medications losartan 50 mg tablet 50 mg PO DAILY 02/23/18 [History Last Taken 11/08/21] metformin 500 mg tablet,extended release 24 hr 500 mg PO QHS 02/23/18 [History Last Taken 11/07/21] metoprolol tartrate 25 mg tablet 25 mg PO BID 02/23/18 [History Last Taken 11/08/21] pravastatin 40 mg tablet 40 mg PO QHS 02/23/18 [History Last Taken 11/07/21] tamsulosin 0.4 mg capsule 0.4 mg PO QHS 02/23/18 [History Last Taken 11/07/21] bupropion HCl 300 mg 24 hr tablet, extended release 300 mg PO DAILY 02/24/18 [History Last Taken 11/08/21] cyanocobalamin (vitamin B-12) 2,500 mcg tablet 2,500 mcg PO DAILY 02/24/18 [History Last Taken 11/08/21] fish, borage, flaxseed oils-omega 3,6,9 cb #1 400 mg-400 mg-400 mg cap 800 mg PO BID 02/24/18 [History Last Taken 11/08/21] nitroglycerin 0.4 mg sublingual tablet 0.4 mg sublingual Q5-15M PRN chest pain #25 tabs 02/24/18 [Rx Last Taken 02/24/18 07:30] potassium chloride 10 mEq capsule,extended release 10 meq PO BID 02/04/19 [History Last Taken 11/08/21] aspirin 81 mg chewable tablet 81 mg PO DAILY@0800 10/06/19 [History Last Taken 11/08/21] cholecalciferol (vitamin D3) 1,250 mcg (50,000 unit) capsule 50,000 unit PO FR 10/06/19 [History Last Taken 11/02/21] albuterol sulfate 90 mcg/actuation aerosol inhaler (ProAir HFA) 2 puff inhalation Q6H PRN wheezing 02/19/21 [History Last Taken Unknown] furosemide 40 mg tablet (Lasix) 60 mg PO BID #270 tabs 03/26/21 [Rx Last Taken 11/08/21] escitalopram oxalate 20 mg tablet 20 mg PO DAILY DEPRESSION 11/08/21 [History Last Taken 11/08/21] magnesium oxide 400 mg PO BID SUPPLEMENT 11/08/21 [History Last Taken 11/08/21] odacidbp-ane-wakjv acid 300 mcg-lycopene 600 mcg-lutein 300 mcg tablet (Centrum Silver Men) 1 tab PO DAILY 11/08/21 [History Last Taken 11/07/21] Allergy/AdvReac Type Severity Reaction Status Date / Time No Known Allergies Allergy Verified 02/19/21 12:22 Family History Mother Cancer Surgical History H/O coronary artery bypass surgery (03/01/18) H/O inguinal hernia repair H/O rectal polypectomy History of coronary artery stent placement (04/29/04) History of herniorrhaphy S/P pericardiocentesis (02/2018) Social History Smoking Status: Never smoker Physical Exam Narrative General: Alert, Oriented x3, Cooperative HEENT: Atraumatic, PERRLA, EOMI, Normocephalic Oral: No Gingival or Mucosal Lesions/ Ulcerations Neck: Supple, No JVD, Negative Carotid Bruits Lungs: Air entry diminished in bilateral lung bases. No crepitation/rhonchi Cardiovascular: Status post CABG scar. Regular rate, Regular Rhythm, Normal S1, Normal S2, No murmurs Abdomen: Bowel Sounds Present, Soft, Non Tender, Non-Distended : No renal angle tenderness. No suprapubic tenderness. Extremities: No edema, Capillary Refill Less than 3 Seconds Skin: Small bruise over left upper back/skin tear. No point vertebral tenderness. No paravertebral noticeable swelling. Musculoskeletal: Bilateral hip and knee joint arthritis. No Tenderness to Palpation of Joints or Extremities Neurological: Cranial nerves II-XII grossly intact, DTR 2+/4. Psych/Mental Status: Normal Affect, Appropriate. Results Lab / Micro Data Result Diagrams: 11/08/21 10:20 11/08/21 10:20 Assessment & Plan Assessment/Plan (1) Syncope and collapse: (2) Acute GI bleeding: PLAN: Plan 1. Acute GI bleed -Admit to PCU -Patient typed and screened in ER, hemoglobin currently stable -Continue IV Protonix -Trend H&H 2. Weakness -Per patient weakness is gotten worse over the past few weeks -PT and OT to eval and treat -Fall precautions ordered 3. Syncope with collapse -Echocardiogram ordered -Orthostatic vital signs -Fall precautions 4. Hypertension -Vital signs per protocol, currently stable -Continue furosemide, losartan, metoprolol 5. Diabetes mellitus type 2 -ACH S blood sugars with sliding scale insulin -Hold metformin 6. Hyperlipidemia -Continue pravastatin 7. BPH -Continue tamsulosin 8. Depression -Continue bupropion and escitalopram DVT prophylaxis-SCDs This patient was seen by KORIN Castellon under the supervision of Dr. Hernandez. 31 minutes spent in clinical coordination of patient's plan of care. Charges/Coding Addendum Addendum: This patient was seen in conjunction with BOO Beth. I have independently interviewed and examined the patient and reviewed pertinent history, examination findings, laboratory and plan of management. I have reviewed the note and agree with the documented findings with the few additional points. HPI: 81-year-old gentleman who was brought to ER by EMS for 2 fall and syncope. Patient had mild dizziness and lightheadedness. Patient also had noticed blood in the toilet. He fell last night and passed out thinks it was of short duration although exact duration unclear. He had another fall and pass out this morning. Patient has mild back sore on left upper with mild bruise. Patient has history of 5 bypass and is only on baby aspirin. Patient denies any previous history of GI bleed including hematemesis melena or hematochezia. He had last colonoscopy about 5 6 years ago probably screening. No obvious history of chronic GI disorder. Patient denies chest pain pressure tightness. He denies missed heartbeat/arrhythmia. No shortness of breath. Denies nausea or vomiting. No hematemesis. ED found also dark red blood on exam. Patient was further admitted. Review of system as documented above Denies dysuria. Chronic arthritis. No recent ACS/UT. Patient says denies hypotension or hypotension. Vital exams noticed Physical exam: As documented above in exam narrative. Assessment and plan 1. Acute GI bleed possible upper GI bleed: Patient is being admitted in PCU. It is probably upper GI bleed as BUN/creatinine ratio is elevated 25. Patient baseline BUN is 20 and today 29. Patient is also on Lasix therefore will hold it. IV fluid Ringer lactate. IV Protonix 40 mg IV twice daily. GI is consulted. Repeat H&H. Keep the patient n.p.o. past midnight for possible upper GI endoscopy tomorrow a.m. 2. Syncope and collapse with history of atherosclerotic heart status post 5 vessel CABG: Echo in May 2018 reported EF 55% stage I diastolic dysfunction, mild TR suggestive of chronic heart failure. Patient is not short of breath, minimal leg swelling, no acute change in status and chest x-ray individually reviewed which did not show pulmonary edema/venous congestion; therefore no acute heart failure. Twelve-lead EKG shows normal sinus rhythm, RBBB, LAFB, bifascicular block chronic at rate of 65 bpm QTc 492 ms. QRS 142. 3. Hypertension: Hold Lasix for now Probably resume furosemide from tomorrow. Continue losartan and metoprolol 4. Diabetes mellitus type 2: Accu-Chek insulin coverage Humalog sliding scale. Hold metformin. 5. Fall, debility: PT and OT evaluation Other comorbidities include dyslipidemia, BPH and chronic arthritis: As documented above. I have discussed my assessment with Ignacia, MANUFACTURING [employer]ER and orders have been reviewed. Living will/advanced directive/end of life care: Patient does have living will or advanced directive. Son is power of privacy attorney for health. After discussion of benefits/risks procedures involved with full code, DNR CC arrest and DNR CC, the patient opted for full code. Patient does want artificial life support including intubation, tube feed, ventilator and/chest compression, central venous catheter, vasopressor and DC shock if needed Total time spent in [id number] encounter in discussion of advanced directive 16 minutes. Visit Charges OBSV E&M: 14535 Initial observation care L3 Procedures Hospitalists Procedures: 80367 Advncd Care Plan 30 Min
[2021-11-08 14:40] LABS: BNP,B-Type NATRIURETIC PEPTIDE 20.9 pg/mL (0-100)
--- NOTE | 2021-11-08 15:58 | CON.PCM_ITS ---
Assessment & Plan Assessment/Plan (1) Acute GI bleeding: PLAN: The differential diagnosis for acute GI bleed in the setting of status pos t fall will be trauma, diverticular, upper GI bleed rapid transit, AVM, telangiectasia. He should undergo an upper and lower endoscopy to evaluate the upper lower GI tract. His daughter is at the bedside and agrees to the procedure along with the patient. They were explained alternatives, risk, b enefits including not withstanding bleeding, infection, sepsis, perforation, need for emergent surgery . He will have an ASA of 2. HPI Consult Data Date of Consult: 11/08/21 Attending Care Provider: GI bleeding HPI Narrative Reason for Consultation: GI bleed HPI Narrative: NYASIA MOSQUEDA, is a 81 M who presents?hypertension, BPH and hyperlipidemia presenting for falls.? Patient had 2 falls last night.? He thinks he passed out because he would just wake up on the ground.? He is complained of some mild lower back pain.? He does live home alone.? He is not on any blood thinners.? He does not think he hit his head but is not sure.? Son also notes he is been more confused for the past few months.? Patient is complain of some mild low back pain.? States he feels mildly short of breath. Did have an episode of stool incontinence after his last fall that was bloody as well.? Per EMS he was 91% on room air and placed on supplemental oxygen. Patient states that he has never had a GI bleed before.? Patient states that he has never had syncopal episodes prior to this however patient does state that he has been feeling lightheaded for the past couple days.? Patient reports medical history of hypertension, CABG x5, hyperlipidemia, BPH, diabetes mellitus type 2.? Patient is not currently on anticoagulation, aspirin 81 mg daily. 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) Pericardial effusion (02/2018) Pneumothorax Postoperative atrial fibrillation Right bundle branch block Sleep apnea Syncope and collapse Type 2 diabetes mellitus Home Medications losartan 50 mg tablet 50 mg PO DAILY 02/23/18 [History Last Taken 11/08/21] metformin 500 mg tablet,extended release 24 hr 500 mg PO QHS 02/23/18 [History Last Taken 11/07/21] metoprolol tartrate 25 mg tablet 25 mg PO BID 02/23/18 [History Last Taken 11/08/21] pravastatin 40 mg tablet 40 mg PO QHS 02/23/18 [History Last Taken 11/07/21] tamsulosin 0.4 mg capsule 0.4 mg PO QHS 02/23/18 [History Last Taken 11/07/21] bupropion HCl 300 mg 24 hr tablet, extended release 300 mg PO DAILY 02/24/18 [History Last Taken 11/08/21] cyanocobalamin (vitamin B-12) 2,500 mcg tablet 2,500 mcg PO DAILY 02/24/18 [History Last Taken 11/08/21] fish, borage, flaxseed oils-omega 3,6,9 cb #1 400 mg-400 mg-400 mg cap 800 mg PO BID 02/24/18 [History Last Taken 11/08/21] nitroglycerin 0.4 mg sublingual tablet 0.4 mg sublingual Q5-15M PRN chest pain #25 tabs 02/24/18 [Rx Last Taken 02/24/18 07:30] potassium chloride 10 mEq capsule,extended release 10 meq PO BID 02/04/19 [History Last Taken 11/08/21] aspirin 81 mg chewable tablet 81 mg PO DAILY@0800 10/06/19 [History Last Taken 11/08/21] cholecalciferol (vitamin D3) 1,250 mcg (50,000 unit) capsule 50,000 unit PO FR 10/06/19 [History Last Taken 11/02/21] albuterol sulfate 90 mcg/actuation aerosol inhaler (ProAir HFA) 2 puff inhalation Q6H PRN wheezing 02/19/21 [History Last Taken Unknown] furosemide 40 mg tablet (Lasix) 60 mg PO BID #270 tabs 03/26/21 [Rx Last Taken 11/08/21] escitalopram oxalate 20 mg tablet 20 mg PO DAILY DEPRESSION 11/08/21 [History Last Taken 11/08/21] magnesium oxide 400 mg PO BID SUPPLEMENT 11/08/21 [History Last Taken 11/08/21] fmmwnwis-dwq-hxpps acid 300 mcg-lycopene 600 mcg-lutein 300 mcg tablet (Centrum Silver Men) 1 tab PO DAILY 11/08/21 [History Last Taken 11/07/21] Allergy/AdvReac Type Severity Reaction Status Date / Time No Known Allergies Allergy Verified 02/19/21 12:22 Family History Mother Cancer Surgical History H/O coronary artery bypass surgery (03/01/18) H/O inguinal hernia repair H/O rectal polypectomy History of coronary artery stent placement (04/29/04) History of herniorrhaphy S/P pericardiocentesis (02/2018) Social History Smoking Status: Never smoker Physical Exam Narrative General: Alert, Oriented x3, Cooperative HEENT: Atraumatic, PERRLA, EOMI, Normocephalic Oral: No Gingival or Mucosal Lesions/ Ulcerations Neck: Supple, No JVD, Negative Carotid Bruits Lungs: Air entry diminished in bilateral lung bases. No crepitation/rhonchi Cardiovascular: Status post CABG scar. Regular rate, Regular Rhythm, Normal S1, Normal S2, No murmurs Abdomen: Bowel Sounds Present, Soft, Non Tender, Non-Distended : No renal angle tenderness. No suprapubic tenderness. Extremities: No edema, Capillary Refill Less than 3 Seconds Skin: Small bruise over left upper back/skin tear. No point vertebral tenderness. No paravertebral noticeable swelling. Musculoskeletal: Bilateral hip and knee joint arthritis. No Tenderness to Palpation of Joints or Extremities Neurological: Cranial nerves II-XII grossly intact, DTR 2+/4. Psych/Mental Status: Normal Affect, Appropriate. Const alert, oriented x3 and no apparent distress General Appearance: cooperative HEENT normocephalic Neck supple General: trachea midline Lymph Lymphatic: no lymphadenopathy noted Resp normal respiratory effort, normal air movement and clear to auscultation bilater ally Cardio regular rate, regular rhythm, S1 normal heart sound, S2 normal heart sound and peripheral pulses 2+ throughout GI normal to inspection, nondistended, normoactive bowel sounds, soft to palpation and non-tender Extremity normal capillary refill General Extremity: no tenderness to palpation of joints or extremities Skin Wound Narrative: Abrasion to right knee noted, no signs or symptoms of infection. Neuro oriented x3, moves all extremities, no focal motor deficits and no sensory deficits noted Sensorium / Orientation: awake Psych thought process normal, cooperative and affect normal Lab / Micro Data Result Diagrams: 11/08/21 10:20 11/08/21 10:20 Labs: Laboratory Results - last 24 hr 11/08/21 10:20: WBC 9.4, RBC 4.54 L, Hgb 14.6, Hct 45.0, MCV 99.1 H, MCH 32.2 H, MCHC 32.4, RDW Std Deviation 57.0 H, RDW Coeff of Delfina 15.5 H, Plt Count 235, MPV 9.8, Immature Gran % (Auto) 1.000 H, Neut % (Auto) 70.5 H, Lymph % (Auto) 18.1 L , [place] % (Auto) 9.7, Eos % (Auto) 0.3, Baso % (Auto) 0.4, Absolute Neuts (auto) 6.6, Absolute Lymphs (auto) 1.70, Nucleated RBC % 0 11/08/21 10:20: PT 13.6, INR 1.1, APTT 26.3 11/08/21 10:20: Sodium 141, Potassium 3.9, Chloride 104, Carbon Dioxide 32.0, Anion Gap 5, BUN 29 H, Creatinine 1.16, Estim Creat Clear Calc 54.82, Est GFR (MDRD) Af Amer 78, Est GFR (MDRD) Non-Af 64, BUN/Creatinine Ratio 25.0 H, Glucose 128 H, Calcium 9.4, Total Bilirubin 1.40 H, AST 37, ALT 69 H, Alkaline Phosphatase 54, Troponin I High Sens 9, Total Protein 6.2 L, Albumin 3.0 L, Globulin 3.2, Albumin/Globulin Ratio 0.9 11/08/21 10:20: Lactic Acid 1.6 11/08/21 10:20: Blood Type AB POSITIVE, Antibody Screen NEGATIVE 11/08/21 10:20: B-Natriuretic Peptide 20.9 11/08/21 13:20: Urine Color Yellow, Urine Clarity Sl. Cloudy, Urine pH 7.0, Ur Specific [place] 1.010, Urine Protein Negative, Urine Glucose (UA) Normal, Urine Ketones Negative, Urine Occult Blood 150 H, Urine Nitrite Negative, Urine Bilirubin Negative, Urine Urobilinogen Normal, Ur Leukocyte Esterase Negative, Urine RBC 25-50 SEEN, Urine WBC 0 SEEN, Ur Squamous Epith Cells 0-5 SEEN, Amorphous Sediment 2+ PHOS, Urine Bacteria 0 SEEN, Urine Mucus 2+ Micro: Microbiology 11/08/21 14:25 Nasal Secretion SARS-CoV-2 Antigen (Rapid) - Final Rhythm Strip Rhythm Strip: Sinus Rhythm Rate: 65 Ectopy: None Radiology Impression Brain CT 11/08/21 11:38 IMPRESSION: Chronic involutional changes of the brain. Electronically Signed: Naresh Khanna MD at 12:34 EDT , Chest X-Ray 11/08/21 12:21 IMPRESSION: Cardiomegaly. Mild degree of stable increased markings at the lung bases suggestive of scarring. Electronically Signed: Naresh Khanna MD at 12:35 EDT , Charges/Coding Visit Charges Inpatient E&M: 02631 Init Hosp L2
[2021-11-08 16:31] LABS: Hematocrit 39.3 % (40-54); Hemoglobin 12.9 g/dL (13.0-16.5)
[2021-11-08] MEDS: Potassium Chloride Oral Tablet 20 MEQ PO (16:38)
[2021-11-08 16:55] LABS: Bedside Glucose 103 mg/dL (74-106)
[2021-11-08] MEDS: 0.9% Normal Saline 1,000 ML 15 ML IV (17:46)
[2021-11-08] MEDS: Bisacodyl 5 MG Tablet 20 MG PO (17:47)
[2021-11-08] MEDS: Ergocalciferol 1.25 MG (50, 000 UNIT) Capsule PO (17:48)
[2021-11-08] MEDS: Electrolyte Solution/Peg's 4000 ML PO (18:16)
[2021-11-08] MEDS: Magnesium Chloride 64 MG Delay Rel.Tablet 128 MG PO (23:59)
[2021-11-08] MEDS: Metoprolol Tartrate 25 MG Tablet PO (23:59)
[2021-11-09] VITALS (17 sets, daily range): BP systolic 83–146; BP diastolic 52–109; PULSE 64–101; RESP 16–18; TEMP 36.1–37.1; O2SAT 93–98; BMI 33.7
--- NOTE | 2021-11-09 | IMM_PTH ---
PATIENT: NYASIA MOSQUEDA LOC: [facility] U#:[id number] AGE/SX: 81/M ROOM: [facility] RE11/09/[address]: Dr. Judi Reyes MD : 1940 BED: 1 DIS: 11/13/2021 SPEC #: [id number] RECD: 11/12/21 11:40 STATUS: ADRIANA REQ #: [id number] ALIZA: 11/09/21 00:[address]: Ra Sandyhsaan DEPT: IMMUNOHISTOCHEMISTRY RECD BY: Chrissy Lundberg ENTERED: 11/12/21 11:41 SP TYPE: IMMUNO OTHR DR: MD Dr. Yeison Deng MD Dr. Christopher Ranney, MD Dr. Prakash Chand, MD Tissues: B - Stomach, NOS Procedures: H Pylori (initial) PHYSICIAN & INSTITUTION [place] [phone] SPECIMEN INFORMATION: Tissue Source: B ? Lesser curvature of stomach, biopsy Clinical Info: GI bleed Specimen Number: [id number] CPT code: 22670 METHODOLOGY: Deparaffinized sections of prefer/formalin-fixed tissue or PAP/DQ stained slides are incubated with monoclonal/polyclonal antibodies/oligonucleotide probes. Localization is made via biotin free immunoperoxidase method. Appropriate controls are performed and reacted as expected. Results on target cell population are indicated in the following table: RESULTS: ANTIBODY / CLONE RESULT Block B H Pylori (polyclonal) negative These tests were developed and their performance characteristics determined by [facility]. They may not have been cleared or approved by the U.S. Food and Drug Administration. The FDA has determined that such clearance or approval is not necessary. The above immunohistochemical/dualISH markers are ordered and reviewed by the Pathologist. INTERPRETATION: B. Lesser curvature of stomach, biopsy: Negative for Helicobacter pylori organisms. AM:ahsan 11/13/2021
--- NOTE | 2021-11-09 | COLBX_PTH ---
PATIENT: NYASIA MOSQUEDA LOC: [facility] U#:[id number] AGE/SX: 81/M ROOM: [facility] RE11/09/[address]: Dr. Judi Reyes MD : 1940 BED: 1 DIS: 11/13/2021 SPEC #: [id number] RECD: 11/09/21 09:07 STATUS: ADRIANA NÚÑEZ #: [id number] ALIZA: 11/09/21 00:[address]: Jose Delgado DEPT: SURGICAL PATHOLOGY RECD BY: Derrek Stroud ENTERED: 11/11/21 08:45 SP TYPE: COLON BX OTHR DR: MD Dr. Yeison Deng MD Dr. Christopher Ranney, MD Dr. Prakash Chand, MD Tissues: A - Duodenum, NOS B - Stomach, NOS Procedures: Surgery Specimen Level IV Comments: @ Ordering doctor for SUIV edited from to @ by МАРИНА at 11/11/21 143 @ Submitting doctor edited from to @ by RGOOD at 11/11/21 1435 HEADER OPERATION: Colonoscopy, EGD ([facility] [place]) PRE-OP DIAGNOSIS: GI bleed TISSUE SUBMITTED: A ? Duodenal polyp, B ? Lesser curvature MICROSCOPIC DIAGNOSIS A. Duodenal polyp, biopsy: Polypoid fragment of duodenal mucosa with mild chronic inflammation. B. Lesser curvature of stomach, biopsy: Mild chronic gastritis. See comment. AM:ahsan 11/12/2021 COMMENT B. The results of immunohistochemistry for Helicobacter pylori will be reported separately ([id number]). MICROSCOPIC DESCRIPTION Slides are reviewed. GROSS DESCRIPTION A - Received in fixative is one container labeled with the patient's name and designated duodenal polyp. The specimen consists of one irregular fragment of light martin soft tissue that measures 0.4 x 0.4 x 0.1 cm. The specimen is totally submitted in one cassette. B - Received in fixative is one container labeled with the patient's name and designated lesser curvature. The specimen consists of multiple irregular fragments of light martin soft tissue that in aggregate measure 0.7 x 0.5 x 0.1 cm. The specimen is totally submitted in one cassette. / EUSEBIO:ahsan 11/11/2021 TC:3 CPT: 34124 x2
[2021-11-09] MEDS: Tamsulosin HCl 0.4 MG Capsule PO ×2 (00:01→22:42)
[2021-11-09 00:10] LABS: Bedside Glucose 95 mg/dL (74-106)
[2021-11-09 01:01] LABS: Phosphorus 3.7 mg/dL (2.5-4.9)
--- NOTE | 2021-11-09 05:55 | EKG12_ITS ---
Test Reason : PRE OP Blood Pressure : / mmHG Vent. Rate : 071 BPM Atrial Rate : 071 BPM P-R Int : 160 ms QRS Dur : 144 ms QT Int : 456 ms P-R-T Axes : 024 -83 045 degrees QTc Int : 495 ms Normal sinus rhythm Right bundle branch block Left anterior fascicular block Bifascicular block Septal infarct , age undetermined Abnormal ECG When compared with ECG of 08-NOV-2021 12:05, MANUAL COMPARISON REQUIRED, DATA IS UNCONFIRMED Confirmed by LISE OBRIEN, PEPPER ([id number]), scientific editor ANGELICA SALCEDO ([id number]) on 11/12/2021 8:45:58 AM Referred By: PC Confirmed By:PEPPER LEZAMA MD
--- NOTE | 2021-11-09 05:55 | ECHOCS_ITS ---
Reason For Study: Syncope Procedure This was a 2D Doppler, Color Flow transthoracic echocardiogram. The study was technically difficult. Contrast injection was performed. Exam performed portable in patient room. Left Ventricle Quality is fair-6 out of 10, contrast was used to enhance imaging. Left ventricular systolic function appears normal, visually estimated left ventricular ejection fraction is about 65%. There is moderate concentric left ventricular hypertrophy No regional wall motion abnormality is appreciated There is evidence of grade 2 diastolic dysfunction. Right Ventricle Normal RV size and systolic function. Atria Normal left atrium. Normal right atrium. Mitral Valve There is mitral annular calcification, no mitral stenosis, there is trivial mitral regurgitation. Tricuspid Valve Tricuspid valve appears grossly normal, there is no appreciable tricuspid regurgitation, RV systolic pressure was not estimated. Aortic Valve Aortic valve is tricuspid, there is aortic sclerosis, there is nodular echodensity on the noncoronary cusp which probably represents calcification, no aortic stenosis or regurgitation, aortic root size is normal. Pulmonic Valve The pulmonic valve is not well visualized. Pericardium/Pleural No pericardial effusion. Medication Diluted definity 3ml given slow IV push to enhance endocardial definition. IAC There is lipomatous hypertrophy of the interatrial septum. MMode/2D Measurements & Calculations LVIDd: 4.8 cm IVSd: 1.1 cm Ao root diam: 3.8 cm LVIDs: 3.0 cm LVPWd: 1.6 cm LA dimension: 3.9 cm FS: 38.0 % LAV(MOD-bp): 34.1 ml LA A4 area: 13.6 cm2 RA A4 area: 11.8 cm2 LAV(MOD-bp) Indexed: 14.5 ml/m2 LAV(MOD-sp2): 38.5 ml LAV(MOD-sp4): 29.7 ml Time Measurements MV dec time: 0.35 sec Doppler Measurements & Calculations MV E max sammy: 64.4 cm/sec Lat Peak E' Sammy: 9.3 cm/sec Med Peak E' Sammy: 6.5 cm/sec MV A max sammy: 108.0 cm/sec E/E' lat: 6.9 E/E' med: 10.0 MV E/A: 0.60 MV V2 max: 128.1 cm/sec MV P1/2t max sammy: 62.6 cm/sec Ao V2 max: 99.2 cm/sec MV max P.6 mmHg MV P1/2t: 119.4 msec Ao max P.9 mmHg MV V2 mean: 53.3 cm/sec MV dec slope: 153.5 cm/sec2 MV mean P.4 mmHg MV V2 VTI: 26.5 cm MVA(P1/2t): 1.8 cm2 LV V1 max: 100.3 cm/sec PA V2 max: 99.2 cm/sec LV V1 max P.0 mmHg ECHO/Echo Complete W/ Contrast Interpretation Summary Technically difficult study, contrast was used to enhance imaging. Preserved left ventricular systolic function moderate concentric left ventricul ar hypertrophy grade 2 diastolic dysfunction no regional wall motion abnormalities Aortic sclerosis without stenosis Chamber dimensions normal Trivial mitral regurgitation No pericardial effusion Compared to a previous report from May 2018, there are no significant raymond es. Technically difficult study, contrast was used to enhance imaging. Preserved left ventricular systolic function moderate concentric left ventricul ar hypertrophy grade 2 diastolic dysfunction no regional wall motion abnormalities Aortic sclerosis without stenosis Chamber dimensions normal Trivial mitral regurgitation No pericardial effusion Compared to a previous report from May 2018, there are no significant raymond es. Ordering Physician: Siddharth Hernandez Referring Physician: Maynor Montero Performed By: Sarmad Bocanegra RCS
[2021-11-09 06:46] LABS: Bedside Glucose 101 mg/dL (74-106)
[2021-11-09 07:25] LABS: Absolute Lymphocyte Count 1.36 X10^3/uL (0.83-4.51); Basophil# 0.03 X10^3/uL; Basophil% 0.4 % (0-1); Eosinophil# 0.05 X10^3/uL; Eosinophils% 0.7 % (0-5); Hematocrit 35.3 % (40-54); Hemoglobin 11.5 g/dL (13.0-16.5); Lymphocyte # 1.36 X10^3/ul (0.83-4.51); Lymphocyte % 18.9 % (19-41); Mean Corp Hgb Conc 32.6 g/dL (32-36); Mean Corpuscular Hgb 31.7 pg (27.0-32.0); Mean Corpuscular Volume 97.2 fL (80-94); Mean Platelet Vol. 8.8 fl (6.2-12.0); Monocyte# 0.74 X10^3/uL; Monocyte% 10.3 % (0-10); NRBC Flagged by Analyzer 0 % (0-5); Neutrophil # 4.95 X10^3/uL (2.7-7.7); Neutrophil % 68.9 % (47-70); Platelet Count 167 K/mm3 (150-450); RBC Distribution Width CV 15.5 % (11.6-14.6); RBC Distribution Width SD 55.8 fl (35.1-43.9); Red Blood Count 3.63 M/mm3 (4.6-6.2); White Blood Count 7.2 K/mm3 (4.4-11.0)
[2021-11-09] MEDS: Lactated Ringers 1,000 ML 15 ML IV (07:45)
--- NOTE | 2021-11-09 08:36 | OP.EGD_ITS ---
Patient Name: King Daigle Procedure Date: 11/09/2021 8:03 AM Date of : 1940 Age: 81 Procedure: Upper GI endoscopy Indications: Acute post hemorrhagic anemia Providers: Jose Delgado DO Medicines: Monitored Anesthesia Care Complications: No immediate complications. Procedure: Pre-Anesthesia Assessment: - Prior to the procedure, a History and Physical was performed, and patient medications and allergies were reviewed. The risks and benefits of the procedure and the sedation options and risks were discussed with the patient. All questions were answered and informed consent was obtained. Patient identification and proposed procedure were verified by the physician in the pre-procedure area. Mental Status Examination: alert and oriented. Airway Examination: normal oropharyngeal airway and neck mobility. Respiratory Examination: clear to auscultation. CV Examination: normal. Prophylactic Antibiotics: The patient does not require prophylactic antibiotics. Prior Anticoagulants: The patient has taken no previous anticoagulant or antiplatelet agents. ASA Grade Assessment: II - A patient with mild systemic disease. After reviewing the risks and benefits, the patient was deemed in satisfactory condition to undergo the procedure. The anesthesia plan was to use moderate sedation / analgesia (conscious sedation). Immediately prior to administration of medications, the patient was re-assessed for adequacy to receive sedatives. The heart rate, respiratory rate, oxygen saturations, blood pressure, adequacy of pulmonary ventilation, and response to care were monitored throughout the procedure. The physical status of the patient was re-assessed after the procedure. After obtaining informed consent, the endoscope was passed under direct vision. Throughout the procedure, the patient's blood pressure, pulse, and oxygen saturations were monitored continuously. The Colonoscope was introduced through the mouth, and advanced to the third part of duodenum. The upper GI endoscopy was accomplished without difficulty. The patient tolerated the procedure well. Scope In: 8:08:53 AM Scope Out: 8:24:21 AM Total Procedure Duration Time 0 hours 15 minutes 28 seconds Findings: A non-obstructing Schatzki ring was found in the lower third of the esophagus. A medium-sized hiatal hernia was present. Diffuse moderately erythematous mucosa without bleeding was found in the entire examined stomach. Biopsies were taken with a cold forceps for histology. Verification of patient identification for the specimen was done. Estimated blood loss was minimal. A single 5 mm sessile polyp was found in the second portion of the duodenum. The polyp was removed with a cold snare. Resection and retrieval were complete. Verification of patient identification for the specimen was done. Estimated blood loss was minimal. Impression: - Non-obstructing Schatzki ring. - Medium-sized hiatal hernia. - Erythematous mucosa in the stomach. Biopsied. - A single duodenal polyp. Resected and retrieved. Recommendation: - Return patient to hospital [facility] for ongoing care. - NPO. - Continue present medications. Procedure Code(s): --- Professional --- 46649, Esophagogastroduodenoscopy, flexible, transoral; with removal of tumor(s), polyp(s), or other lesion(s) by snare technique 56323, 59,51, Esophagogastroduodenoscopy, flexible, transoral; with biopsy, single or multiple CPT copyright 2017 [employer]. All rights reserved. The codes documented in this report are preliminary and upon clinical resource manager review may be revised to meet current compliance requirements. Jose Delgado DO 11/09/2021 8:36:14 AM This report has been signed electronically. Number of Addenda: 1 Note Initiated On: 11/09/2021 8:03 AM Addendum Number: 1 Addendum Date: 02/25/2022 6:10:43 AM MAC was used as sedation for this procedure. Jose Delgado DO 02/25/2022 6:10:50 AM This report has been signed electronically.
--- NOTE | 2021-11-09 08:37 | OP.CCLET_ITS ---
02/25/2022 All Montero [address] [place] [address] Re : Upper GI endoscopy procedure for King Daigle Dear Dr. Montero This procedure was performed on Tuesday, November 09, 2021. My impressions and recommendations are as follows: Impressions : - Non-obstructing Schatzki ring. - Medium-sized hiatal hernia. - Erythematous mucosa in the stomach. Biopsied. - A single duodenal polyp. Resected and retrieved. Recommendations : - Return patient to hospital [facility] for ongoing care. - NPO. - Continue present medications. My findings are described in the full procedure note, which is enclosed. If I can be of further assistance, please feel free to contact me at . Sincerely, Jose Delgado, 11/09/2021 8:36:14 AM This report has been signed electronically.
--- NOTE | 2021-11-09 08:37 | CT_ITS ---
STUDY: CTA OF THE ABDOMEN AND PELVIS WITH CONTRAST. REASON FOR EXAM: Male, 81 years old. GI bleed RADIATION DOSAGE (If Supplied By Facility): CTDIvol = ( 26.14 ) mGy, DLP = ( 1352.03 ) mGycm TECHNIQUE: Axial CT angiography multi-detector data acquisition was obtained from the lower chest to the pelvic following intravenous administration of 100 mL of ISOVUE-370. Axial images and MIP images were reconstructed from the axial data set. Post-processing of the angiographic images was performed, with multiplanar reformation. 3D reconstruction was not performed. Individualized dose optimization techniques were used for this CT. TECHNICAL QUALITY: Good COMPARISON: None. Descriptors of Narrowing: None (0%) Mild (< 50%) Moderate (50-70%) Severe (70-90%) Subtotal/Total Occlusion (90-100%) Non-Evaluable (technically non-diagnostic FINDINGS: Abdominal aorta: Calcified plaques predominantly in the infrarenal abdominal aorta but no aneurysmal dilatation and no demonstrated narrowing. There is a small dissection with a small intimal flap in the left lateral wall of the infrarenal abdominal aorta (series 2, images 84-90). Celiac and superior mesenteric arteries: No demonstrated narrowing. Inferior mesenteric artery: No demonstrated narrowing. Right renal artery(arteries): High-grade stenosis at the origin due to noncalcified plaque more than calcified plaque. Left renal artery(arteries): 50% stenosis near the origin due to calcified plaques. Right common iliac artery: Calcified plaques but no demonstrated narrowing. Right external iliac artery: No demonstrated narrowing. Right internal iliac artery: High-grade stenosis at the origin due to calcified plaque. Left common iliac artery: Calcified plaques but no demonstrated narrowing. Left external iliac artery: No demonstrated narrowing. Left internal iliac artery: No demonstrated narrowing. RIGHT LOWER EXTREMITY Right common femoral artery: No demonstrated narrowing. Right profundus femoris: No demonstrated narrowing. Right proximal superficial femoral: No demonstrated narrowing. LEFT LOWER EXTREMITY Left common femoral artery: No demonstrated narrowing. Left profundus femoris: No demonstrated narrowing. Left proximal superficial femoral: No demonstrated narrowing. Minimal subpleural atelectases in left peripheral lung base. The visualized portions of the heart are within normal limits. Normal liver. Tiny radiolucent gallstones in the upper aspect of the gallbladder fossa. Small calcified gallstones in the dependent portions of the gallbladder fossa. No intrahepatic or extrahepatic biliary ductal dilatation. Normal spleen. Normal pancreas. Normal bilateral adrenal glands. 3 mm nonobstructing calculus in the right kidney. No hydronephrosis. Normal left kidney. Normal visualized stomach. Normal small intestine. Normal colon. The appendix is visualized and appears normal. Normal inferior vena cava. Normal retroperitoneum. 2.1 x 1.6 cm stone in the posterior wall of the urinary bladder. The prostate gland is not enlarged. Normal abdominal wall. Moderately pronounced old anterior wedge compression fracture of the upper L2 vertebral body. CT/CT ANGIO ABD&PEL W/O&W/DYE IMPRESSION: 1. No CTA evidence of any arterial extravasation of contrast in the abdomen and pelvis. 2. 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 3. 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 4. No abdominal aortic aneurysm. 5. Normal SMA, celiac artery and ISABEL. 6. Normal common iliac arteries down to the bilateral proximal SFAs. 7. 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 8. Multiple calcified gallstones. 9. 3 mm nonobstructing stone in the right kidney. 10. 2.1 x 1.6 cm stone inside the urinary bladder. 11. Moderately pronounced old anterior wedge compression fracture of the upper L2 vertebral body. Electronically Signed: Deny Winchester MD at 12:45 EDT ,
[2021-11-09 08:40] LABS: Anion Gap 4 (5-15); BUN 23 mg/dL (7-18); BUN/Creat Ratio 25.6 RATIO (10-20); Calcium,Total 8.6 mg/dL (8.5-10.1); Chloride 110 mmol/L (98-107); EST Glomerular Filtration Rate 86 mL/min (>60); Est Glom Filt Rate - Afr Amer 104 mL/min (>60); Estimated Creatinine Clearance 70.65 ml/min; Glucose 108 mg/dL (74-106); Potassium 3.9 mmol/L (3.5-5.1); Sodium Level 144 mmol/L (136-145); Thyroid Stim Hormone (TSH) 1.76 uIU/mL (0.358-3.74)
--- NOTE | 2021-11-09 08:43 | OP.COLON_ITS ---
Patient Name: King Daigle Procedure Date: 11/09/2021 7:22 AM Date of : 1940 Age: 81 Procedure: Colonoscopy Indications: Gastrointestinal bleeding Providers: Jose Delgado DO Medicines: Monitored Anesthesia Care Patient Profile: This is an 81 year old male. Refer to note in patient chart for documentation of history and physical. Last Colonoscopy: date unknown. Unable to locate last colonoscopy report. Complications: No immediate complications. Procedure: Pre-Anesthesia Assessment: - Prior to the procedure, a History and Physical was performed, and patient medications and allergies were reviewed. The patient is competent. The risks and benefits of the procedure and the sedation options and risks were discussed with the patient. All questions were answered and informed consent was obtained. Patient identification and proposed procedure were verified by the physician in the pre-procedure area. Mental Status Examination: alert and oriented. Airway Examination: normal oropharyngeal airway and neck mobility. Respiratory Examination: clear to auscultation. CV Examination: normal. Prophylactic Antibiotics: The patient does not require prophylactic antibiotics. Prior Anticoagulants: The patient has taken no previous anticoagulant or antiplatelet agents. After reviewing the risks and benefits, the patient was deemed in satisfactory condition to undergo the procedure. The anesthesia plan was to use moderate sedation / analgesia (conscious sedation). Immediately prior to administration of medications, the patient was re-assessed for adequacy to receive sedatives. The heart rate, respiratory rate, oxygen saturations, blood pressure, adequacy of pulmonary ventilation, and response to care were monitored throughout the procedure. The physical status of the patient was re-assessed after the procedure. After I obtained informed consent, the scope was passed under direct vision. Throughout the procedure, the patient's blood pressure, pulse, and oxygen saturations were monitored continuously. The Colonoscope was introduced through the anus and advanced to the cecum, identified by appendiceal orifice and ileocecal valve. The colonoscopy was performed without difficulty. The patient tolerated the procedure well. The quality of the bowel preparation was 90 percent obscured. Scope In: 7:54:33 AM Scope Out: 8:00:03 AM Total Procedure Duration Time 0 hours 5 minutes 30 seconds Findings: The perianal and digital rectal examinations were normal. Red blood was found in the entire colon. A moderate amount of stool was found in the rectum, in the recto-sigmoid colon, in the sigmoid colon, at the splenic flexure, in the transverse colon and in the cecum, precluding visualization. Lavage of the area was performed using a large amount of sterile water, resulting in incomplete clearance with continued poor visualization. Impression: - Blood in the entire examined colon. - Stool in the rectum, in the recto-sigmoid colon, in the sigmoid colon, at the splenic flexure, in the transverse colon and in the cecum. - No specimens collected. Recommendation: - Return patient to hospital [facility] for ongoing care. -Stat CT angio of the abdomen pelvis to locate GI bleed - NPO. - Continue present medications. - Repeat colonoscopy because the bowel preparation was poor. Procedure Code(s): --- Professional --- 52787, Colonoscopy, flexible; diagnostic, including collection of specimen(s) by brushing or washing, when performed (separate procedure) CPT copyright 2017 [employer]. All rights reserved. The codes documented in this report are preliminary and upon fish packer review may be revised to meet current compliance requirements. Jose Delgado DO 11/09/2021 8:42:55 AM This report has been signed electronically. Number of Addenda: 1 Note Initiated On: 11/09/2021 7:22 AM Addendum Number: 1 Addendum Date: 02/25/2022 6:10:57 AM MAC was used as sedation for this procedure. Jose Delgado DO 02/25/2022 6:11:01 AM This report has been signed electronically.
--- NOTE | 2021-11-09 08:44 | OP.CCLET_ITS ---
02/25/2022 All Montero [address] [place] [address] Re : Colonoscopy procedure for King Daigle Dear Dr. Montero This procedure was performed on Tuesday, November 09, 2021. My impressions and recommendations are as follows: Impressions : - Blood in the entire examined colon. - Stool in the rectum, in the recto-sigmoid colon, in the sigmoid colon, at the splenic flexure, in the transverse colon and in the cecum. - No specimens collected. Recommendations : - Return patient to hospital [facility] for ongoing care. -Stat CT angio of the abdomen pelvis to locate GI bleed - NPO. - Continue present medications. - Repeat colonoscopy because the bowel preparation was poor. My findings are described in the full procedure note, which is enclosed. If I can be of further assistance, please feel free to contact me at . Sincerely, Jose Friend, 11/09/2021 8:42:55 AM This report has been signed electronically.
[2021-11-09 09:02] LABS: Hemoglobin A1c 5.9 % (3.8-5.6)
[2021-11-09] MEDS: 0.9% Saline Lock 10 ML Syringe IV (10:26)
[2021-11-09 11:30] LABS: Bedside Glucose 113 mg/dL (74-106)
--- NOTE | 2021-11-09 11:59 | PN.HOSP_ITS ---
Documented by User: Ignacia Whitlock NP-Josee 11/09/21 12:04 Subjective Subjective Patient seen and examined. Patient lying in bed just returned from EGD and colonoscopy, no distress noted. Objective Data Objective Data Vital Signs: Vital Signs Temp Pulse Resp BP Pulse Ox 98.5 F 66 16 137/64 H 95 11/09/21 09:20 11/09/21 09:20 11/09/21 09:20 11/09/21 09:20 11/09/21 09:20 Oxygen Flow Rate (L/min) 1 Oxygen Delivery Method Room Air Weight: 250 lb 10.649 oz Body Mass Index (BMI) 33.7 Intake & Output: Intake and Output for Last 24 Hours 11/07/21 11/08/21 11/09/21 23:59 23:59 23:59 Intake Total 1785 / 1785 1327.5 / 1327.5 Balance 1785 / 1785 1327.5 / 1327.5 Lab / Micro Data Result Diagrams: 11/09/21 13:55 11/09/21 07:16 Labs: Laboratory Results - last 24 hr 11/08/21 10:20: WBC 9.4, RBC 4.54 L, Hgb 14.6, Hct 45.0, MCV 99.1 H, MCH 32.2 H, MCHC 32.4, RDW Std Deviation 57.0 H, RDW Coeff of Delfina 15.5 H, Plt Count 235, MPV 9.8, Immature Gran % (Auto) 1.000 H, Neut % (Auto) 70.5 H, Lymph % (Auto) 18.1 L , Evangeline % (Auto) 9.7, Eos % (Auto) 0.3, Baso % (Auto) 0.4, Absolute Neuts (auto) 6.6, Absolute Lymphs (auto) 1.70, Nucleated RBC % 0 11/08/21 10:20: PT 13.6, INR 1.1, APTT 26.3 11/08/21 10:20: Sodium 141, Potassium 3.9, Chloride 104, Carbon Dioxide 32.0, A nion Gap 5, BUN 29 H, Creatinine 1.16, Estim Creat Clear Calc 54.82, Est GFR (MDRD) Af Amer 78, Est GFR (MDRD) Non-Af 64, BUN/Creatinine Ratio 25.0 H, Glucose 128 H, Calcium 9.4, Total Bilirubin 1.40 H, AST 37, ALT 69 H, Alkaline Phosphatase 54, Troponin I High Sens 9, Total Protein 6.2 L, Albumin 3.0 L, Globulin 3.2, Albumin/Globulin Ratio 0.9 11/08/21 10:20: Lactic Acid 1.6 11/08/21 10:20: Blood Type AB POSITIVE, Antibody Screen NEGATIVE 11/08/21 10:20: B-Natriuretic Peptide 20.9 11/08/21 10:20: Phosphorus 3.7, Magnesium 2.0 11/08/21 13:20: Urine Color Yellow, Urine Clarity Sl. Cloudy, Urine pH 7.0, Ur Specific [place] 1.010, Urine Protein Negative, Urine Glucose (UA) Normal, Urine Ketones Negative, Urine Occult Blood 150 H, Urine Nitrite Negative, Urine Bilirubin Negative, Urine Urobilinogen Normal, Ur Leukocyte Esterase Negative, Urine RBC 25-50 SEEN, Urine WBC 0 SEEN, Ur Squamous Epith Cells 0-5 SEEN, Amorphous Sediment 2+ PHOS, Urine Bacteria 0 SEEN, Urine Mucus 2+ 11/08/21 16:20: Hgb 12.9 L, Hct 39.3 L 11/08/21 16:37: POC Glucose 103 11/08/21 23:58: POC Glucose 95 11/09/21 06:41: POC Glucose 101 11/09/21 07:16: WBC 7.2, RBC 3.63 L, Hgb 11.5 L, Hct 35.3 L, MCV 97.2 H, MCH 31.7, MCHC 32.6, RDW Std Deviation 55.8 H, RDW Coeff of Delfina 15.5 H, Plt Count 167, MPV 8.8, Immature Gran % (Auto) 0.800, Neut % (Auto) 68.9, Lymph % (Auto) 18.9 L, Evangeline % (Auto) 10.3 H, Eos % (Auto) 0.7, Baso % (Auto) 0.4, Absolute Neuts (auto) 5.0, Absolute Lymphs (auto) 1.36, Nucleated RBC % 0 11/09/21 07:16: Sodium 144, Potassium 3.9, Chloride 110 H, Carbon Dioxide 30.0, Anion Gap 4 L, BUN 23 H, Creatinine 0.90, Estim Creat Clear Calc 70.65, Est GFR (MDRD) Af Amer 104, Est GFR (MDRD) Non-Af 86, BUN/Creatinine Ratio 25.6 H, Glucose 108 H, Calcium 8.6, TSH 1.76 11/09/21 07:16: Hemoglobin A1c 5.9 H 11/09/21 11:14: POC Glucose 113 H Micro: Microbiology 11/08/21 14:25 Nasal Secretion SARS-CoV-2 Antigen (Rapid) - Final Radiography Diagnostic Testing: Radiology Impression Brain CT 11/08/21 11:38 IMPRESSION: Chronic involutional changes of the brain. Electronically Signed: Naresh Khanna MD at 12:34 EDT , Chest X-Ray 11/08/21 12:21 IMPRESSION: Cardiomegaly. Mild degree of stable increased markings at the lung bases suggestive of scarring. Electronically Signed: Naresh Khanna MD at 12:35 EDT , Rhythm Strip Rhythm Strip: Sinus Rhythm Rate: 65 Ectopy: None Physical Exam Const alert, oriented x3 and no apparent distress General Appearance: cooperative HEENT normocephalic Neck supple General: trachea midline Lymph Lymphatic: no lymphadenopathy noted Resp normal respiratory effort, normal air movement and clear to auscultation bilaterally Cardio regular rate, regular rhythm, S1 normal heart sound, S2 normal heart sound and peripheral pulses 2+ throughout GI normal to inspection, nondistended, normoactive bowel sounds, soft to palpation and non-tender Extremity normal capillary refill General Extremity: no tenderness to palpation of joints or extremities Skin Wound Narrative: Abrasion to right knee noted, no signs or symptoms of infection. Neuro oriented x3, moves all extremities, no focal motor deficits and no sensory deficits noted Sensorium / Orientation: awake Psych thought process normal, cooperative and affect normal Assessment & Plan Assessment/Plan (1) Syncope and collapse: (2) Acute GI bleeding: PLAN: Plan 1. Acute GI bleed -Hemoglobin down to 11.5 today -CBC daily -Continue IV Protonix -Trend H&H -Patient was taken for EGD and colonoscopy with Dr. Delgado today. EGD shows medium size hiatal hernia, erythematous mucosa in the stomach which was biopsied and a single duodenal polyp which was resected and retrieved. Colonoscopy demonstrated blood in the entire examined colon with stool in the rectum, rectosigmoid colon, sigmoid colon, splenic flexure, transverse colon, cecum. Stat CT angio of abdomen and pelvis ordered patient continues to be n.p.o. 2. Weakness -Per patient weakness is gotten worse over the past few weeks -PT and OT to eval and treat -Fall precautions ordered 3. Syncope with collapse -Echocardiogram ordered -Orthostatic vital signs -Fall precautions 4. Hypertension -Vital signs per protocol, currently stable -Continue furosemide, losartan, metoprolol 5. Diabetes mellitus type 2 -ACH S blood sugars with sliding scale insulin -Hold metformin -Hemoglobin A1c 5.9 6. Hyperlipidemia -Continue pravastatin 7. BPH -Continue tamsulosin 8. Depression -Continue bupropion and escitalopram DVT prophylaxis-SCDs This patient was seen by Ignacia Whitlock NP-C under the supervision of Dr. Hernandez. 14 minutes spent in clinical coordination of patient's plan of care. Documented by User: Dr. Siddharth Hernandez MD 11/09/21 16:24 Subjective Subjective Patient seen and examined. Patient lying in bed just returned from EGD and colonoscopy, no distress noted. Seen and examined. I talked to the patient's daughter near the bedside. Patient had EGD colonoscopy in the morning. Discussed with community support worker Dr. Delgado and said patient was hypotensive during anesthesia, systolic blood pressure dropped to 60s with patient recovered. Orthostatic blood pressure also positive. Patient also was dizzy and lightheaded while going to bathroom but patient did not fall. No syncope. CTA abdomen was done and findings discussed in assessment plan. Objective Data Lab / Micro Data Result Diagrams: 11/09/21 13:55 11/09/21 07:16 Physical Exam Narrative Seen and examined. General: Alert, Oriented x3, Cooperative HEENT: Atraumatic, PERRLA, EOMI, Normocephalic Oral: No Gingival or Mucosal Lesions/ Ulcerations Neck: Supple, No JVD, Negative Carotid Bruits Lungs: Air entry diminished in bilateral lung bases. No crepitation/rhonchi Cardiovascular: Status post CABG scar. Regular rate, Regular Rhythm, Normal S1, Normal S2, No murmurs Abdomen: Bowel Sounds Present, Soft, Non Tender, Non-Distended : No renal angle tenderness. No suprapubic tenderness. Extremities: No edema, Capillary Refill Less than 3 Seconds Skin: Small bruise over left upper back/skin tear, healing. No point vertebral tenderness. No paravertebral noticeable swelling. Musculoskeletal: Bilateral hip and knee joint arthritis. No Tenderness to Palpation of Joints or Extremities Neurological: Cranial nerves II-XII grossly intact, DTR 2+/4. Psych/Mental Status: Normal Affect, Appropriate. Assessment & Plan Assessment/Plan (1) Syncope and collapse: (2) Acute GI bleeding: PLAN: Plan 1. Acute GI bleed -Hemoglobin down to 11.5 today -CBC daily -Continue IV Protonix -Trend H&H -Patient was taken for EGD and colonoscopy with Dr. Delgado today. EGD shows medium size hiatal hernia, erythematous mucosa in the stomach which was biopsied and a single duodenal polyp which was resected and retrieved. Colonoscopy demonstrated blood in the entire examined colon with stool in the rectum, rectosigmoid colon, sigmoid colon, splenic flexure, transverse colon, cecum. Stat CT angio of abdomen and pelvis ordered patient continues to be n.p.o. 2. Weakness -Per patient weakness is gotten worse over the past few weeks -PT and OT to eval and treat -Fall precautions ordered 3. Syncope with collapse -Echocardiogram ordered -Orthostatic vital signs -Fall precautions 4. Hypertension -Vital signs per protocol, currently stable -Continue furosemide, losartan, metoprolol 5. Diabetes mellitus type 2 -ACH S blood sugars with sliding scale insulin -Hold metformin -Hemoglobin A1c 5.9 6. Hyperlipidemia -Continue pravastatin 7. BPH -Continue tamsulosin 8. Depression -Continue bupropion and escitalopram DVT prophylaxis-SCDs This patient was seen by KORIN Castellon under the supervision of Dr. Hernandez. 14 minutes spent in clinical coordination of patient's plan of care. This patient was seen in conjunction with BOO Beth. I have independently interviewed and examined the patient and reviewed pertinent history, examination findings, laboratory and plan of management. I have reviewed the note and agree with the documented findings with the few additional points. Assessment and plan 1.? Acute GI bleed possible upper GI bleed: Patient is being admitted in PCU.? It is probably upper GI bleed as BUN/creatinine ratio is elevated 25.? Patient baseline BUN is 20 and today 29.? Patient is also on Lasix therefore will hold it.? IV fluid Ringer lactate.? IV Protonix 40 mg IV twice daily.? GI is consulted.? Repeat H&H.? Keep the patient n.p.o. past midnight for possible upper GI endoscopy tomorrow a.m. 11/09: Anemia due to GI blood loss. Hemoglobin dropped to 9.9 from 14.6 g on admission. IV iron ordered. Monitor H&H every 6 hourly. Colonoscopy shows blood in the colon but it was mainly unprepped colon with a lot of stool. Needs repeat colonoscopy. EGD did not show source of bleeding, medium sized hiatus hernia. Erythematous mucosa in the stomach. Abnormal CTA finding with peripheral atherosclerotic arterial disease: GI ordered abdominal CTA looking for vascular cause for GI blood loss. CTA shows normal SMA, celiac artery and ISABEL but a small subintimal dissection flap in the left lateral wall of the infrarenal abdominal aorta. High-grade stenosis of right renal artery due to noncalcified plaque and 50% stenosis of left proximal renal artery due to calcified plaque. Suspicious high-grade stenosis of bilateral internal iliac artery due to calcified plaques. Patient has history of atherosclerotic heart disease and MS in the past therefore patient had atherosclerosis in other vascular beds. Patient is still having GI blood loss therefore aspirin on hold. I talked to the vascular surgeon Dr. Austin who is out of town during weekend. Would like to see the patient on Thursday if he stays or can see the patient as an outpatient if he is discharged. This was discussed with the family member. In view of ongoing GI blood loss anemia, anticoagulant/antiplatelet agent are contraindicated. This needs outpatient vascular surgery follow-up. 2.? 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 Patient is not short of breath, minimal leg swelling, no acute change in status and chest x-ray individually r eviewed which did not show pulmonary edema/venous congestion; therefore no acute heart failure.? Twelve-lead EKG shows normal sinus rhythm, RBBB, LAFB, bifascicular block chronic at rate of 65 bpm? QTc 492 ms.? QRS 142. 6/18: Patient was hypotensive briefly during anesthesia and also orthostatic blo od pressure positive. Supine vitals BP 120/64, heart rate 82/min, dropped to 89/54, heart rate 65 on standing. IV fluid Ringer lactate ordered. Patient also felt dizzy and lightheaded while going to bathroom but did not had fall. 2D echo was done and shows grade 2 diastolic dysfunction, preserved LV systolic function with moderate concentric LVH. Aortic sclerosis without stenosis. Trivial MR. Technically difficult study. 3.? Hypertension: Hold Lasix for now Probably resume furosemide from tomorrow.? Continue losartan and metoprolol 4.? Diabetes mellitus type 2: Accu-Chek insulin coverage Humalog sliding scale.? Hold metformin. 5.? Fall, debility: PT and OT evaluation Other comorbidities include dyslipidemia, BPH and chronic arthritis: As documented above. CT also showed urinary stone, small tiny nonobstructive kidney stone and multiple calcified gallstones probably needs to be followed as an outpatient. I have discussed my assessment with Ignacia, CALL OR CONTACT CENTRE COACH and orders have been reviewed. Total time of the visit including total time spent in counseling or coordination of care, (more than 50% of the total time, spent in obtaining medical information from nurses and other ancillary care providers,explaining to the patient about labs, imaging, diagnosis and management), discussion with the patient's daughter near the bedside, discussion with consultants GI and vascular surgeon Dr. Austin review of labs and imaging is 45 minutes. Clinical Impression(s) from Imaging Studies Brain CT 11/08/21 11:38 IMPRESSION: Chronic involutional changes of the brain. Electronically Signed: Naresh Khanna MD at 12:34 EDT , Chest X-Ray 11/08/21 12:21 IMPRESSION: Cardiomegaly. Mild degree of stable increased markings at the lung bases suggestive of scarring. Echocardiogram 11/09/21 05:55 Interpretation Summary Technically difficult study, contrast was used to enhance imaging. Preserved left ventricular systolic function moderate concentric left ventricula r hypertrophy grade 2 diastolic dysfunction no regional wall motion abnormalities Aortic sclerosis without stenosis Chamber dimensions normal Trivial mitral regurgitation No pericardial effusion Compared to a previous report from May 2018, there are no significant changes. Technically difficult study, contrast was used to enhance imaging. Preserved left ventricular systolic function moderate concentric left ventricular hypertrophy grade 2 diastolic dysfunction no regional wall motion abnormalities Aortic sclerosis without stenosis Chamber dimensions normal Trivial mitral regurgitation No pericardial effusion Compared to a previous report from May 2018, there are no significant change s. Abdomen/Pelvis CTA 11/09/21 08:37 IMPRESSION: 1. No CTA evidence of any arterial extravasation of contrast in the abdomen and pelvis. 2. 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 3. 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 4. No abdominal aortic aneurysm. 5. Normal SMA, celiac artery and ISABEL. 6. Normal common iliac arteries down to the bilateral proximal SFAs. 7. 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 8. Multiple calcified gallstones. 9. 3 mm nonobstructing stone in the right kidney. 10. 2.1 x 1.6 cm stone inside the urinary bladder. 11. Moderately pronounced old anterior wedge compression fracture of the upper L2 vertebral body. Electronically Signed: Deny Winchester MD at 12:45 EDT , Charges/Coding Visit Charges Inpatient E&M: 43442 Subs Hosp L3
[2021-11-09] MEDS: Potassium Chloride Oral Tablet 20 MEQ PO ×2 (12:54→16:46)
[2021-11-09] MEDS: Cyanocobalamin 500 MCG Tablet 2500 MCG PO (12:55)
[2021-11-09] MEDS: Magnesium Chloride 64 MG Delay Rel.Tablet 128 MG PO ×2 (12:55→22:43)
[2021-11-09] MEDS: Furosemide 40 MG Tablet 60 MG PO (12:56)
[2021-11-09] MEDS: Metoprolol Tartrate 25 MG Tablet PO ×2 (12:56→22:43)
[2021-11-09] MEDS: Losartan Potassium 50 MG Tablet PO (12:57)
[2021-11-09] MEDS: Multivitamins,Ther W-Minerals Tablet 1 TABLET PO (12:57)
[2021-11-09] MEDS: Escitalopram Oxalate 20 MG Tablet PO (12:57)
[2021-11-09] MEDS: buPROPion (XL) 300 MG TABLET.XL PO (12:58)
--- NOTE | 2021-11-09 13:21 | NURSING ---
All AM medications given late d/t patient NPO status pending Dr. Delgado's orders.
[2021-11-09] MEDS: Ferrous Sulfate 325 MG Tablet PO (13:45)
[2021-11-09] MEDS: Menthol/Lanolin/Calamine/Znox 113 GM Tube 1 APPLIC TOPICAL ×2 (13:45→22:41)
[2021-11-09] MEDS: Lactated Ringers 1,000 ML 100 ML IV ×2 (13:50→23:40)
[2021-11-09 14:19] LABS: Hematocrit 30.7 % (40-54); Hemoglobin 9.9 g/dL (13.0-16.5)
[2021-11-09] MEDS: Ascorbic Acid 500 MG Tablet PO (16:46)
[2021-11-09] MEDS: Insulin Lispro 100 UNIT/ML INSULN.PEN SC (16:50)
[2021-11-09 16:51] LABS: Bedside Glucose 159 mg/dL (74-106)
--- NOTE | 2021-11-09 17:45 | CASEMGMT ---
RN SUSI OIL EXPELLER CM to room to meet with patient for initial transition planning/care coordination assessment. KIMMY GOLDMAN introduced self and role at [facility]. Pt voices understanding and consents to assessment at this time. Pt resting in bed in no distress at this time. Daughters, Milka and Kavitha, at bedside. Pt agreeable w/them being present during assess. Pt is A/O at this time and answers all questions appropriately. Care providers, pharmacy, and demographics verified/updated at this time. PCP: Dr Montero Specialists: Dr Castillo-cardiology Preferred Pharmacy: [facility] Insurance: [employer] Prescription Benefit: Yes Living Will/HPOA: Pt has both LW and HPOA, who is his son, Vernon, and dtr, Milka. LNOK: Son/JASONAVernon. Dtr/POA, Milka. Dtr, Kavitha. Vernon lives nearby. Dtr's live near [place]. Living Arrangements: Lives alone in single-story apt. No steps to enter. Dtr's report pt was independent and took care of himself well up until about a month ago. They noticed a sudden change after receiving his COVID booster. They state they feel he may be depressed. He is not wanting to leave his house much, has not been bathing self or doing self-care like he used to, and has not been eating/drinking as well. Dtr's state pt does have issues w/incontinence and they have also been noticing issues w/short-term memory. He has also had increased weakness and difficulty walking. SW referral placed. Transportation: Pt does not drive. Vernon provides most transportation. Vernon will get groceries for pt or take pt w/him to get groceries. DME: States has the following DME: shower chair, rails/grab bars, cane, glucometer, pulse ox. Pt does not have a walker. If pt returns home, he may need a walker. They voice interest in medical alert button. Same provided. Pt and dtr's state no need for further DME at this time. CCN: Pt and dtrs made aware of CCN and provided w/rac card/contact info. HHC/SNF: Hx SNF in [place]. No hx of HHC. Dtr's interested in pt going to SNF @ discharge. Pt states he would be agreeable if recommended. Pt and dtr's made aware therapy eval to be done and if SNF recommended, insurance approval would be needed. They voice understanding. ?They were provided with list of? HHC providers and also SNF's including quality and resource use data and consistent with the patient's preferred geographic region, medical needs, and insurance network. ?They will review lists and notify CM/SW on Thursday of their preferences. ? ? ? PLAN: TBD. SNF vs Home w/HHC. PT/OT evals pending. Abigail BRANDTN RN CM
[2021-11-09 19:29] LABS: Hematocrit 26.8 % (40-54); Hemoglobin 8.6 g/dL (13.0-16.5)
[2021-11-09] MEDS: Pravastatin 40 MG Tablet PO ×2 (22:44)
[2021-11-10] VITALS (16 sets, daily range): BP systolic 83–130; BP diastolic 47–99; PULSE 63–77; RESP 16–18; TEMP 36.2–36.7; O2SAT 92–99
[2021-11-10 01:46] LABS: Bedside Glucose 93 mg/dL (74-106)
[2021-11-10 02:21] LABS: Hematocrit 24.3 % (40-54); Hemoglobin 7.7 g/dL (13.0-16.5)
[2021-11-10 07:01] LABS: Bedside Glucose 71 mg/dL (74-106)
[2021-11-10] MEDS: Menthol/Lanolin/Calamine/Znox 113 GM Tube 1 APPLIC TOPICAL ×2 (07:58→23:59)
[2021-11-10] MEDS: Magnesium Chloride 64 MG Delay Rel.Tablet 128 MG PO ×2 (07:58→23:58)
[2021-11-10] MEDS: Potassium Chloride Oral Tablet 20 MEQ PO ×2 (07:58→16:13)
[2021-11-10] MEDS: Multivitamins,Ther W-Minerals Tablet 1 TABLET PO (07:58)
[2021-11-10] MEDS: Ascorbic Acid 500 MG Tablet PO ×2 (07:58→16:13)
[2021-11-10 08:33] LABS: Absolute Lymphocyte Count 1.72 X10^3/uL (0.83-4.51); Absolute Neutrophil Count 4.7 X10^3/uL (2.0-7.7); Basophil# 0.03 X10^3/uL; Basophil% 0.4 % (0-1); Eosinophil# 0.03 X10^3/uL; Eosinophils% 0.4 % (0-5); Hematocrit 23.6 % (40-54); Hemoglobin 7.6 g/dL (13.0-16.5); Lymphocyte # 1.72 X10^3/ul (0.83-4.51); Lymphocyte % 23.5 % (19-41); Mean Corp Hgb Conc 32.2 g/dL (32-36); Mean Corpuscular Hgb 32.5 pg (27.0-32.0); Mean Corpuscular Volume 100.9 fL (80-94); Mean Platelet Vol. 9.3 fl (6.2-12.0); Monocyte# 0.74 X10^3/uL; Monocyte% 10.1 % (0-10); NRBC Flagged by Analyzer 0 % (0-5); Neutrophil # 4.67 X10^3/uL (2.7-7.7); Neutrophil % 63.8 % (47-70); Platelet Count 186 K/mm3 (150-450); RBC Distribution Width SD 58.8 fl (35.1-43.9); Red Blood Count 2.34 M/mm3 (4.6-6.2); White Blood Count 7.3 K/mm3 (4.4-11.0)
[2021-11-10 08:50] LABS: AST(SGOT) 24 U/L (15-37); Alanine Aminotransfer ALT/SGPT 45 U/L (16-61); Albumin, Serum 2.2 g/dL (3.2-5.0); Alkaline Phosphatase 36 U/L (45-117); Anion Gap 5 (5-15); BUN 20 mg/dL (7-18); BUN/Creat Ratio 23.8 RATIO (10-20); Calcium,Total 7.9 mg/dL (8.5-10.1); Chloride 110 mmol/L (98-107); Creatinine, Serum 0.84 mg/dL (0.70-1.30); EST Glomerular Filtration Rate 93 mL/min (>60); Est Glom Filt Rate - Afr Amer 112 mL/min (>60); Globulin 2.2 g/dL (2.2-4.2); Glucose 95 mg/dL (74-106); Potassium 3.3 mmol/L (3.5-5.1); Protein, Total 4.4 g/dL (6.4-8.2); Sodium Level 146 mmol/L (136-145)
[2021-11-10] MEDS: Lactated Ringers 1,000 ML 100 ML IV ×2 (09:55→20:52)
[2021-11-10] MEDS: Losartan Potassium 50 MG Tablet PO (09:59)
[2021-11-10] MEDS: Cyanocobalamin 500 MCG Tablet 2500 MCG PO (09:59)
[2021-11-10] MEDS: Escitalopram Oxalate 20 MG Tablet PO (09:59)
[2021-11-10] MEDS: buPROPion (XL) 300 MG TABLET.XL PO (09:59)
[2021-11-10] MEDS: Metoprolol Tartrate 25 MG Tablet PO (10:00)
--- NOTE | 2021-11-10 11:07 | PN.HOSP_ITS ---
Documented by User: Ignacia Whitlock NP-C 11/10/21 11:13 Subjective Subjective Patient seen and examined. Patient lying in bed no distress noted. Patient states that he has not had a bloody bowel movement since very early this morning. Objective Data Objective Data Vital Signs: Vital Signs Temp Pulse Resp BP Pulse Ox 98.1 F 72 18 120/48 L 92 11/10/21 10:05 11/10/21 10:05 11/10/21 10:05 11/10/21 10:05 11/10/21 10:05 Oxygen Flow Rate (L/min) 1 Oxygen Delivery Method Room Air Weight: 252 lb 6.868 oz Body Mass Index (BMI) 33.7 Intake & Output: Intake and Output for Last 24 Hours 11/08/21 11/09/21 11/10/21 23:59 23:59 23:59 Intake Total 1785 / 1785 4220.83 / 4220.83 1110 / 1110 Balance 1785 / 1785 4220.83 / 4220.83 1110 / 1110 Lab / Micro Data Result Diagrams: 11/10/21 13:51 11/10/21 07:37 Labs: Laboratory Results - last 24 hr 11/09/21 11:14: POC Glucose 113 H 11/09/21 13:55: Hgb 9.9 L, Hct 30.7 L 11/09/21 16:46: POC Glucose 159 H 11/09/21 19:20: Hgb 8.6 L, Hct 26.8 L 11/09/21 22:31: POC Glucose 93 11/10/21 01:58: Hgb 7.7 L, Hct 24.3 L 11/10/21 06:52: POC Glucose 71 L 11/10/21 07:37: WBC 7.3, RBC 2.34 L, Hgb 7.6 L, Hct 23.6 L, MCV 100.9 H, MCH 32.5 H, MCHC 32.2, RDW Std Deviation 58.8 H, RDW Coeff of Delfina 16.0 H, Plt Count 186, MPV 9.3, Immature Gran % (Auto) 1.800 H, Neut % (Auto) 63.8, Lymph % (Auto) 23.5, [place] % (Auto) 10.1 H, Eos % (Auto) 0.4, Baso % (Auto) 0.4, Absolute Neuts (auto) 4.7, Absolute Lymphs (auto) 1.72, Nucleated RBC % 0 11/10/21 07:37: Sodium 146 H, Potassium 3.3 L, Chloride 110 H, Carbon Dioxide 31.0, Anion Gap 5, BUN 20 H, Creatinine 0.84, Estim Creat Clear Calc 75.70, Est GFR (MDRD) Af Amer 112, Est GFR (MDRD) Non-Af 93, BUN/Creatinine Ratio 23.8 H, Glucose 95, Calcium 7.9 L, Total Bilirubin 0.70, AST 24, ALT 45, Alkaline Phosphatase 36 L, Total Protein 4.4 L, Albumin 2.2 L, Globulin 2.2, Albumin/Globulin Ratio 1.0 Micro: Microbiology 11/08/21 14:25 Nasal Secretion SARS-CoV-2 Antigen (Rapid) - Final Radiography Diagnostic Testing: Radiology Impression Echocardiogram 11/09/21 05:55 Interpretation Summary Technically difficult study, contrast was used to enhance imaging. Preserved left ventricular systolic function moderate concentric left ventricular hypertrophy grade 2 diastolic dysfunction no regional wall motion abnormalities Aortic sclerosis without stenosis Chamber dimensions normal Trivial mitral regurgitation No pericardial effusion Compared to a previous report from May 2018, there are no significant changes. Technically difficult study, contrast was used to enhance imaging. Preserved left ventricular systolic function moderate concentric left ventricular hypertrophy grade 2 diastolic dysfunction no regional wall motion abnormalities Aortic sclerosis without stenosis Chamber dimensions normal Trivial mitral regurgitation No pericardial effusion Compared to a previous report from May 2018, there are no significant changes. Ordering Physician: Siddharth Hernandez Referring Physician: Maynor Montero Performed By: Sarmad Bocanegra RCS Abdomen/Pelvis CTA 11/09/21 08:37 IMPRESSION: 1. No CTA evidence of any arterial extravasation of contrast in the abdomen and pelvis. 2. 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 3. 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 4. No abdominal aortic aneurysm. 5. Normal SMA, celiac artery and ISABEL. 6. Normal common iliac arteries down to the bilateral proximal SFAs. 7. 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 8. Multiple calcified gallstones. 9. 3 mm nonobstructing stone in the right kidney. 10. 2.1 x 1.6 cm stone inside the urinary bladder. 11. Moderately pronounced old anterior wedge compression fracture of the upper L2 vertebral body. Electronically Signed: Deny Winchester MD at 12:45 EDT , Rhythm Strip Rhythm Strip: Sinus Rhythm Rate: 65 Ectopy: None Physical Exam Const alert, oriented x3 and no apparent distress General Appearance: cooperative HEENT normocephalic Neck supple General: trachea midline Lymph Lymphatic: no lymphadenopathy noted Resp normal respiratory effort, normal air movement and clear to auscultation bilaterally Cardio regular rate, regular rhythm, S1 normal heart sound, S2 normal heart sound and peripheral pulses 2+ throughout GI normal to inspection, nondistended, normoactive bowel sounds, soft to palpation and non-tender Extremity normal capillary refill General Extremity: no tenderness to palpation of joints or extremities Skin Wound Narrative: Abrasion to right knee noted, no signs or symptoms of infection. Neuro oriented x3, moves all extremities, no focal motor deficits and no sensory deficits noted Sensorium / Orientation: awake Psych thought process normal, cooperative and affect normal Assessment & Plan Assessment/Plan (1) Syncope and collapse: (2) Acute GI bleeding: PLAN: Plan 1. Acute GI bleed -Hemoglobin down to 7.6 today, H&H Q6H -CBC daily -Continue IV Protonix -Trend H&H -Patient was taken for EGD and colonoscopy with Dr. Delgado 11/09/21. EGD shows medium size hiatal hernia, erythematous mucosa in the stomach which was biopsied and a single duodenal polyp which was resected and retrieved. Colonoscopy demonstrated blood in the entire examined colon with stool in the rectum, rectosigmoid colon, sigmoid colon, splenic flexure, transverse colon, cecum. Stat CT angio of abdomen and pelvis ordered patient continues to be n.p.o. -Repeat colonoscopy planned 2. Weakness -Per patient weakness is gotten worse over the past few weeks -PT and OT following -Fall precautions ordered 3. Syncope with collapse -Echocardiogram demonstrates EF 65%, Grade 2 diastolic dysfunction. -Orthostatic vital signs + -Fall precautions 4. Hypertension -Vital signs per protocol, currently stable -Continue furosemide, losartan, metoprolol 5. Diabetes mellitus type 2 -ACH S blood sugars with sliding scale insulin -Hold metformin -Hemoglobin A1c 5.9 6. Hyperlipidemia -Continue pravastatin 7. BPH -Continue tamsulosin 8. Depression -Continue bupropion and escitalopram DVT prophylaxis-SCDs This patient was seen by Ignacia Whitlock NP-C under the supervision of Dr. Reyes. 13 minutes spent in clinical coordination of patient's plan of care. Documented by User: Dr. Judi Reyes MD 11/10/21 17:01 Objective Data Lab / Micro Data Result Diagrams: 11/10/21 13:51 11/10/21 07:37 Assessment & Plan Assessment/Plan (1) Syncope and collapse: (2) Acute GI bleeding: Charges/Coding Addendum Addendum: This patient was seen in conjunction with Aldair Whitlock NP. I have independently interviewed and examined the patient and reviewed pertinent historical, laboratory, and other data. I have reviewed her note and concur with her documentation Patient was seen and examined. He complains of some dizziness with sitting up. He admits to some maroon-colored stools this afternoon. Denies chest pain or palpitation. Physical Exam: Gen: Comfortable, not pale, not jaundiced CVS:HS I +II, regular, no murmurs RESP: Diminished at lung bases GI: BS present and normal, soft, nontender, no palpable organs EXT:No edema ASSESSMENT: 1. Syncope 2. Acute GI bleed 3. Debility 4. Hypertension 5. Hyperlipidemia 6. BPH 7. Depression 8. Type II DM 9. 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 Time spent coordinating all aspects of patient's care, discussing with subspecialty and nursin minutes Visit Charges Inpatient E&M: 64997 Subs Hosp L2
[2021-11-10 11:16] LABS: Bedside Glucose 77 mg/dL (74-106)
[2021-11-10] MEDS: Ferrous Sulfate 325 MG Tablet PO (12:54)
[2021-11-10 14:32] LABS: Hematocrit 22.3 % (40-54); Hemoglobin 7.2 g/dL (13.0-16.5)
[2021-11-10 16:56] LABS: Bedside Glucose 81 mg/dL (74-106)
--- NOTE | 2021-11-10 20:24 | PCM.HOSP.N ---
Hospitalist Note Notified by nursing of hematochezia. Hemoglobin is 7. Earlier today was 7.2. Patient has not had any prior hematochezia today. We will type and cross him for 2 units and transfuse 1 unit. Follow-up hemoglobin.
[2021-11-10 22:56] LABS: Bedside Glucose 58 mg/dL (74-106)
[2021-11-10] MEDS: Pravastatin 40 MG Tablet PO (23:58)
[2021-11-10] MEDS: Tamsulosin HCl 0.4 MG Capsule PO (23:58)
[2021-11-11] VITALS (15 sets, daily range): BP systolic 105–123; BP diastolic 46–70; PULSE 53–69; RESP 18–20; TEMP 36.2–36.8; O2SAT 93–99
[2021-11-11] MEDS: Metoprolol Tartrate 25 MG Tablet PO ×3 (00:25→21:00)
[2021-11-11 00:40] LABS: Bedside Glucose 81 mg/dL (74-106)
[2021-11-11 02:08] LABS: Hematocrit 26.3 % (40-54); Hemoglobin 8.1 g/dL (13.0-16.5)
[2021-11-11] MEDS: Dextrose 10%-Water 250 ML 999 ML IV (06:01)
[2021-11-11] MEDS: 0.9% Saline Lock 10 ML Syringe IV (06:03)
[2021-11-11 06:27] LABS: Absolute Lymphocyte Count 1.25 X10^3/uL (0.83-4.51); Absolute Neutrophil Count 3.9 X10^3/uL (2.0-7.7); Basophil# 0.04 X10^3/uL; Basophil% 0.7 % (0-1); Eosinophil# 0.09 X10^3/uL; Eosinophils% 1.5 % (0-5); Hematocrit 24.3 % (40-54); Hemoglobin 7.8 g/dL (13.0-16.5); Lymphocyte # 1.25 X10^3/ul (0.83-4.51); Lymphocyte % 20.4 % (19-41); Mean Corp Hgb Conc 32.1 g/dL (32-36); Mean Corpuscular Hgb 32.4 pg (27.0-32.0); Mean Corpuscular Volume 100.8 fL (80-94); Mean Platelet Vol. 9.4 fl (6.2-12.0); Monocyte# 0.53 X10^3/uL; Monocyte% 8.6 % (0-10); NRBC Flagged by Analyzer 0.7 % (0-5); Neutrophil # 3.92 X10^3/uL (2.7-7.7); Neutrophil % 63.9 % (47-70); Platelet Count 158 K/mm3 (150-450); RBC Distribution Width CV 17.3 % (11.6-14.6); RBC Distribution Width SD 63.1 fl (35.1-43.9); Red Blood Count 2.41 M/mm3 (4.6-6.2); White Blood Count 6.1 K/mm3 (4.4-11.0)
[2021-11-11 06:40] LABS: Bedside Glucose 37 mg/dL (74-106)
[2021-11-11 06:40] LABS: Bedside Glucose 98 mg/dL (74-106)
[2021-11-11 06:48] LABS: International Normalized Ratio 1.2; Prothrombin Time (Protime)PT. 14.8 SECONDS (11.7-14.9)
[2021-11-11 07:07] LABS: Anion Gap 5 (5-15); BUN 16 mg/dL (7-18); BUN/Creat Ratio 25.8 RATIO (10-20); Calcium,Total 7.8 mg/dL (8.5-10.1); Chloride 114 mmol/L (98-107); Creatinine, Serum 0.62 mg/dL (0.70-1.30); EST Glomerular Filtration Rate 132 mL/min (>60); Est Glom Filt Rate - Afr Amer 160 mL/min (>60); Estimated Creatinine Clearance 63.59 ml/min; Glucose 68 mg/dL (74-106); Potassium 3.7 mmol/L (3.5-5.1); Sodium Level 144 mmol/L (136-145)
[2021-11-11] MEDS: Dext 5%-0.45% NS 1,000 ML 75 ML IV (08:08)
[2021-11-11 09:22] LABS: Ferritin 329 ng/mL (26-388); Iron 106 ug/dL (65-175); Iron Binding Capacity,Total 323 ug/dL (250-450); PERCENT IRON SATURATION 32.8 % (15.0-55.0)
--- NOTE | 2021-11-11 10:27 | CASEMGMT ---
SW noted patient's family was looking for placement for patient. SW met with patient, his son and daughter. They confirmed they would like placement for patient. They already had lists provided to them. Their top 3 choices are: [facility], [facility], and [facility]. SW let them know when ALAYNA has updates. SW notified [facility] d/c capacity planning manager and she will work on referral. Sailaja Aquino MSW [facility]
[2021-11-11] MEDS: Magnesium Chloride 64 MG Delay Rel.Tablet 128 MG PO ×2 (10:28→21:00)
[2021-11-11] MEDS: Ascorbic Acid 500 MG Tablet PO ×2 (10:28→16:32)
[2021-11-11] MEDS: Cyanocobalamin 500 MCG Tablet 2500 MCG PO (10:29)
[2021-11-11] MEDS: buPROPion (XL) 300 MG TABLET.XL PO (10:29)
[2021-11-11] MEDS: Multivitamins,Ther W-Minerals Tablet 1 TABLET PO (10:29)
[2021-11-11] MEDS: Potassium Chloride Oral Tablet 20 MEQ PO ×2 (10:29→16:32)
[2021-11-11] MEDS: Escitalopram Oxalate 20 MG Tablet PO (10:29)
[2021-11-11] MEDS: Menthol/Lanolin/Calamine/Znox 113 GM Tube 1 APPLIC TOPICAL ×2 (10:30→21:00)
--- NOTE | 2021-11-11 10:38 | CASEMGMT ---
Discharge Transport Nurse Called Basia at [facility]. Beds are available. Faxed over referral and will follow up. Sun Shah Discharge Transport Nurse
[2021-11-11] MEDS: Ferrous Sulfate 325 MG Tablet PO (11:31)
[2021-11-11 11:36] LABS: Bedside Glucose 75 mg/dL (74-106)
[2021-11-11 12:24] LABS: Hematocrit 24.8 % (40-54); Hemoglobin 8.1 g/dL (13.0-16.5)
--- NOTE | 2021-11-11 12:26 | PCM.PN.HOSP ---
Documented by User: Ignacia Whitlock NP-C 11/11/21 12:33 Subjective Subjective Patient seen and examined. Patient's family at bedside. Discussed with patient's family plan of care. Patient family and patient going over list for intermediate facilities. Objective Data Objective Data Vital Signs: Vital Signs Temp Pulse Resp BP Pulse Ox 97.1 F L 64 18 113/53 L 96 11/11/21 10:00 11/11/21 10:29 11/11/21 10:00 11/11/21 10:29 11/11/21 10:00 Oxygen Flow Rate (L/min) 95 Oxygen Delivery Method Room Air Weight: 260 lb Body Mass Index (BMI) 33.7 Intake & Output: Intake and Output for Last 24 Hours 11/09/21 11/10/21 11/11/21 23:59 23:59 23:59 Intake Total 4220.83 / 4220.83 2410 / 2410 1396.67 / 1396.67 Balance 4220.83 / 4220.83 2410 / 2410 1396.67 / 1396.67 Lab / Micro Data Result Diagrams: 11/11/21 13:45 11/11/21 05:50 Labs: Laboratory Results - last 24 hr 11/08/21 10:20: Crossmatch See Detail 11/10/21 13:51: Hgb 7.2 L, Hct 22.3 L 11/10/21 16:07: POC Glucose 81 11/10/21 19:20: Hgb 7.0 L, Hct 22.0 L 11/10/21 22:50: POC Glucose 58 L 11/10/21 23:49: POC Glucose 81 11/11/21 01:48: Hgb 8.1 L, Hct 26.3 L 11/11/21 05:50: WBC 6.1, RBC 2.41 L, Hgb 7.8 L, Hct 24.3 L, MCV 100.8 H, MCH 32.4 H, MCHC 32.1, RDW Std Deviation 63.1 H, RDW Coeff of Delfina 17.3 H, Plt Count 158, MPV 9.4, Immature Gran % (Auto) 4.900 H, Neut % (Auto) 63.9, Lymph % (Auto) 20.4, [place] % (Auto) 8.6, Eos % (Auto) 1.5, Baso % (Auto) 0.7, Absolute Neuts (auto) 3.9, Absolute Lymphs (auto) 1.25, Nucleated RBC % 0.7 11/11/21 05:50: Sodium 144, Potassium 3.7, Chloride 114 H, Carbon Dioxide 25.0, Anion Gap 5, BUN 16, Creatinine 0.62 L, Estim Creat Clear Calc 63.59, Est GFR (MDRD) Af Amer 160, Est GFR (MDRD) Non-Af 132, BUN/Creatinine Ratio 25.8 H, Glucose 68 L, Calcium 7.8 L 11/11/21 05:50: PT 14.8, INR 1.2 11/11/21 05:50: Iron 106, TIBC 323, Iron Saturation 32.8, Ferritin 329 11/11/21 05:54: POC Glucose 37 L* 11/11/21 06:28: POC Glucose 98 11/11/21 11:27: POC Glucose 75 11/11/21 12:05: Hgb 8.1 L, Hct 24.8 L Micro: Microbiology 11/08/21 14:25 Nasal Secretion SARS-CoV-2 Antigen (Rapid) - Final Rhythm Strip Rhythm Strip: Sinus Rhythm Rate: 65 Ectopy: None Physical Exam Const alert, oriented x3 and no apparent distress General Appearance: cooperative HEENT normocephalic Neck supple General: trachea midline Lymph Lymphatic: no lymphadenopathy noted Resp normal respiratory effort, normal air movement and clear to auscultation bilaterally Cardio regular rate, regular rhythm, S1 normal heart sound, S2 normal heart sound and peripheral pulses 2+ throughout GI normal to inspection, nondistended, normoactive bowel sounds, soft to palpation and non-tender Extremity normal capillary refill General Extremity: no tenderness to palpation of joints or extremities Skin Wound Narrative: Abrasion to right knee noted, no signs or symptoms of infection. Neuro oriented x3, moves all extremities, no focal motor deficits and no sensory deficits noted Sensorium / Orientation: awake Psych thought process normal, cooperative and affect normal Assessment & Plan Assessment/Plan (1) Syncope and collapse: (2) Acute GI bleeding: PLAN: Plan 1.? Acute GI bleed -Hemoglobin 7.0 overnight, transfused 1 unit packed red blood cells. Repeat hemoglobin trend 8.1, 7.8, 8.1. -CBC daily -Continue IV Protonix -Trend H&H -Patient was taken for EGD and colonoscopy with Dr. Delgado 11/09/21.? EGD shows medium size hiatal hernia, erythematous mucosa in the stomach which was biopsied and a single duodenal polyp which was resected and retrieved.? Colonoscopy demonstrated blood in the entire examined colon with stool in the rectum, rectosigmoid colon, sigmoid colon, splenic flexure, transverse colon, cecum.? Stat CT angio of abdomen and pelvis ordered patient continues to be n.p.o. -Patient will follow up outpatient with Dr. Delgado 2.? Weakness -Per patient weakness is gotten worse over the past few weeks -PT and OT following -Fall precautions ordered -Patient is a max to assist and will need SNF placement, case management following 3.? Syncope with collapse -Echocardiogram demonstrates EF 65%, Grade 2 diastolic dysfunction. -Orthostatic vital signs + -Fall precautions 4.? Hypertension -Vital signs per protocol, currently stable -Continue furosemide, losartan, metoprolol 5.? Diabetes mellitus type 2 -ACH S blood sugars with sliding scale insulin -Hold metformin -Hemoglobin A1c 5.9 6.? Hyperlipidemia -Continue pravastatin 7.? BPH -Continue tamsulosin 8.? Depression -Continue bupropion and escitalopram DVT prophylaxis-SCDs This patient was seen by NAVIN CastellonC under the supervision of Dr. Reyes. 13 minutes spent in clinical coordination of patient's plan of care. Documented by User: Dr. Judi Reyes MD 11/11/21 16:49 Objective Data Lab / Micro Data Result Diagrams: 11/11/21 13:45 11/11/21 05:50 Assessment & Plan Assessment/Plan (1) Syncope and collapse: (2) Acute GI bleeding: Charges/Coding Addendum Addendum: This patient was seen in conjunction with Aldair Whitlock NP.? I have independently interviewed and examined the patient and reviewed pertinent historical, laboratory, and other data. I have reviewed her note and concur with her documentation Patient was seen and examined. Patient continues to have hematochezia. He received 1 unit of packed RBC. He also had an episode of hypoglycemia requiring treatment and continuation with IV dextrose half-normal fluids. Hemoglobin remained stable at 8.1 Physical Exam: Gen: Comfortable, not pale, not jaundiced CVS:HS I +II, regular, no murmurs RESP: Diminished at lung bases GI: BS present and normal, soft, nontender, no palpable organs EXT:No edema ASSESSMENT: 1.? Syncope 2.? Acute GI bleed 3.? Debility 4. Hypoglycemia 5.? Hypertension 6.? Hyperlipidemia 7.? BPH 8.? Depression 9.? Type II DM 10.? 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 Time spent reviewing patient data, coordinating all aspects of patient's care, discussing with GI and nursin minutes Visit Charges Inpatient E&M: 42403 Subs Hosp L2
--- NOTE | 2021-11-11 12:27 | CASEMGMT ---
Discharge Soil Sort Worker Basia from the [facility] reached out. [facility] can accept patient. Sailaja CATALAN has been notified and will start Pre-cert. Sun Shah Discharge Soil Sort Worker
--- NOTE | 2021-11-11 13:25 | CASEMGMT ---
ALAYNA called [employer] (the [employer] that [facility] uses to obtain pre-certification for SNFs). ALAYNA spoke with Slava and went over clinicals with her. Patient was approved and the authorization number is: [id number]. The authorization is good for 5 days. SW will notify physician. SW called patient's son, Vernon. ALAYNA let Vernon know that patient was approved. ALAYNA explained that when patient is ready SW can arrange transportation. ALAYNA explained if patient goes by wheelchair insurance will not pay for it. ALAYNA said family could also transport. Vernon said that is okay, he would prefer SW set up transport. SW let him know SW will contact him when patient is being discharged. Plan: d/c to [facility] under skilled level of care. Sailaja ROQUE
[2021-11-11 13:54] LABS: Hematocrit 23.2 % (40-54); Hemoglobin 8.1 g/dL (13.0-16.5)
[2021-11-11] MEDS: Bisacodyl 5 MG Tablet 20 MG PO (15:21)
[2021-11-11] MEDS: Electrolyte Solution/Peg's 4000 ML PO (15:21)
[2021-11-11 16:40] LABS: Bedside Glucose 77 mg/dL (74-106)
--- NOTE | 2021-11-11 18:09 | PN_ITS ---
Subjective Subjective Patient did have 3 bloody bowel movements overnight but did not have any today. Objective Data Objective Data Vital Signs: Vital Signs Temp Pulse Resp BP Pulse Ox 98.1 F 56 L 20 H 105/46 L 96 11/11/21 15:30 11/11/21 15:30 11/11/21 15:30 11/11/21 15:30 11/11/21 15:30 Oxygen Flow Rate (L/min) 2 Oxygen Delivery Method Nasal Cannula Weight: 260 lb Body Mass Index (BMI) 33.7 Intake & Output: Intake and Output for Last 24 Hours 11/09/21 11/10/21 11/11/21 23:59 23:59 23:59 Intake Total 4220.83 / 4220.83 2410 / 2410 1396.67 / 1396.67 Balance 4220.83 / 4220.83 2410 / 2410 1396.67 / 1396.67 Lab / Micro Data Result Diagrams: 11/11/21 13:45 11/11/21 05:50 Labs: Laboratory Results - last 24 hr 11/08/21 10:20: Crossmatch See Detail 11/10/21 19:20: Hgb 7.0 L, Hct 22.0 L 11/10/21 22:50: POC Glucose 58 L 11/10/21 23:49: POC Glucose 81 11/11/21 01:48: Hgb 8.1 L, Hct 26.3 L 11/11/21 05:50: WBC 6.1, RBC 2.41 L, Hgb 7.8 L, Hct 24.3 L, MCV 100.8 H, MCH 32.4 H, MCHC 32.1, RDW Std Deviation 63.1 H, RDW Coeff of Delfina 17.3 H, Plt Count 158, MPV 9.4, Immature Gran % (Auto) 4.900 H, Neut % (Auto) 63.9, Lymph % (Auto) 20.4, [place] % (Auto) 8.6, Eos % (Auto) 1.5, Baso % (Auto) 0.7, Absolute Neuts (auto) 3.9, Absolute Lymphs (auto) 1.25, Nucleated RBC % 0.7 11/11/21 05:50: Sodium 144, Potassium 3.7, Chloride 114 H, Carbon Dioxide 25.0, Anion Gap 5, BUN 16, Creatinine 0.62 L, Estim Creat Clear Calc 63.59, Est GFR (MDRD) Af Amer 160, Est GFR (MDRD) Non-Af 132, BUN/Creatinine Ratio 25.8 H, Glucose 68 L, Calcium 7.8 L 11/11/21 05:50: PT 14.8, INR 1.2 11/11/21 05:50: Iron 106, TIBC 323, Iron Saturation 32.8, Ferritin 329 11/11/21 05:54: POC Glucose 37 L* 11/11/21 06:28: POC Glucose 98 11/11/21 11:27: POC Glucose 75 11/11/21 12:05: Hgb 8.1 L, Hct 24.8 L 11/11/21 13:45: Hgb 8.1 L, Hct 23.2 L 11/11/21 16:30: POC Glucose 77 Micro: Microbiology 11/08/21 14:25 Nasal Secretion SARS-CoV-2 Antigen (Rapid) - Final Rhythm Strip Rhythm Strip: Sinus Rhythm Rate: 65 Ectopy: None Physical Exam Const alert, oriented x3 and no apparent distress General Appearance: cooperative HEENT normocephalic Neck supple General: trachea midline Lymph Lymphatic: no lymphadenopathy noted Resp normal respiratory effort, normal air movement and clear to auscultation bi laterally Cardio regular rate, regular rhythm, S1 normal heart sound, S2 normal heart sound and peripheral pulses 2+ throughout GI normal to inspection, nondistended, normoactive bowel sounds, soft to palpation and non-tender Extremity normal capillary refill General Extremity: no tenderness to palpation of joints or extremities Skin Wound Narrative: Abrasion to right knee noted, no signs or symptoms of infection. Neuro oriented x3, moves all extremities, no focal motor deficits and no sensory def icits noted Sensorium / Orientation: awake Psych thought process normal, cooperative and affect normal Assessment & Plan Assessment/Plan (1) Acute GI bleeding: PLAN: The plan is for colonoscopy tomorrow. He will need to be prepped tonight and can have tapwater enemas until clear. If he is not clear after the prep. Charges/Coding Visit Charges Inpatient E&M: 99521 Subs Hosp L2
[2021-11-11 19:56] LABS: Hematocrit 24.8 % (40-54)
[2021-11-11] MEDS: Tamsulosin HCl 0.4 MG Capsule PO (21:00)
[2021-11-11] MEDS: Pravastatin 40 MG Tablet PO (21:00)
[2021-11-11 22:40] LABS: Bedside Glucose 86 mg/dL (74-106)
[2021-11-12] VITALS (18 sets, daily range): BP systolic 87–133; BP diastolic 44–99; PULSE 57–70; RESP 16–20; TEMP 36.2–37; O2SAT 92–100; BMI 35.6
[2021-11-12 04:09] LABS: Hematocrit 23.9 % (40-54); Hemoglobin 7.6 g/dL (13.0-16.5)
[2021-11-12 06:11] LABS: Bedside Glucose 72 mg/dL (74-106)
[2021-11-12 06:40] LABS: Absolute Lymphocyte Count 1.54 X10^3/uL (0.83-4.51); Absolute Neutrophil Count 3.9 X10^3/uL (2.0-7.7); Basophil# 0.05 X10^3/uL; Basophil% 0.8 % (0-1); Eosinophil# 0.12 X10^3/uL; Eosinophils% 1.9 % (0-5); Hematocrit 26.2 % (40-54); Hemoglobin 8.4 g/dL (13.0-16.5); Lymphocyte # 1.54 X10^3/ul (0.83-4.51); Lymphocyte % 23.8 % (19-41); Mean Corp Hgb Conc 32.1 g/dL (32-36); Mean Corpuscular Hgb 32.2 pg (27.0-32.0); Mean Corpuscular Volume 100.4 fL (80-94); Mean Platelet Vol. 9.2 fl (6.2-12.0); Monocyte# 0.61 X10^3/uL; Monocyte% 9.4 % (0-10); NRBC Flagged by Analyzer 0.6 % (0-5); Neutrophil # 3.86 X10^3/uL (2.7-7.7); Neutrophil % 59.8 % (47-70); Platelet Count 191 K/mm3 (150-450); RBC Distribution Width CV 17.5 % (11.6-14.6); RBC Distribution Width SD 62.7 fl (35.1-43.9); Red Blood Count 2.61 M/mm3 (4.6-6.2); White Blood Count 6.5 K/mm3 (4.4-11.0)
[2021-11-12 07:14] LABS: Anion Gap 6 (5-15); BUN 10 mg/dL (7-18); Chloride 109 mmol/L (98-107); Creatinine, Serum 0.59 mg/dL (0.70-1.30); EST Glomerular Filtration Rate 140 mL/min (>60); Est Glom Filt Rate - Afr Amer 170 mL/min (>60); Estimated Creatinine Clearance 63.59 ml/min; Glucose 75 mg/dL (74-106); Potassium 3.4 mmol/L (3.5-5.1); Sodium Level 143 mmol/L (136-145)
[2021-11-12] MEDS: Potassium Chloride 10mEq/100mL 10 MEQ/100 ML IV.SOLN. 100 MEQ IV BOLUS ×2 (09:46→11:27)
[2021-11-12] MEDS: Metoprolol Tartrate 25 MG Tablet PO ×2 (09:46→21:03)
[2021-11-12] MEDS: 0.9% Normal Saline 1,000 ML 75 ML IV (10:52)
[2021-11-12] MEDS: Menthol/Lanolin/Calamine/Znox 113 GM Tube 1 APPLIC TOPICAL ×2 (11:33→22:58)
[2021-11-12 11:36] LABS: Bedside Glucose 55 mg/dL (74-106)
--- NOTE | 2021-11-12 11:53 | PN.HOSP_ITS ---
Subjective Subjective Patient seen and examined. Patient lying in bed daughter at bedside. Patient went for colonoscopy later today. Objective Data Objective Data Vital Signs: Vital Signs Temp Pulse Resp BP Pulse Ox 98.1 F 60 18 128/55 H 94 11/12/21 05:10 11/12/21 09:46 11/12/21 05:10 11/12/21 09:46 11/12/21 05:10 Oxygen Flow Rate (L/min) 1 Oxygen Delivery Method Nasal Cannula Weight: 263 lb 0.183 oz Body Mass Index (BMI) 33.7 Intake & Output: Intake and Output for Last 24 Hours 11/10/21 11/11/21 11/12/21 23:59 23:59 23:59 Intake Total 2410 / 2410 3006.67 / 6006.67 3710 / 3710 Balance 2410 / 2410 3006.67 / 6006.67 3710 / 3710 Lab / Micro Data Result Diagrams: 11/12/21 06:10 11/12/21 06:10 Labs: Laboratory Results - last 24 hr 11/08/21 10:20: Crossmatch See Detail 11/11/21 12:05: Hgb 8.1 L, Hct 24.8 L 11/11/21 13:45: Hgb 8.1 L, Hct 23.2 L 11/11/21 16:30: POC Glucose 77 11/11/21 19:41: Hgb 8.0 L, Hct 24.8 L 11/11/21 20:51: POC Glucose 86 11/12/21 03:56: Hgb 7.6 L, Hct 23.9 L 11/12/21 05:06: POC Glucose 72 L 11/12/21 06:10: WBC 6.5, RBC 2.61 L, Hgb 8.4 L, Hct 26.2 L, MCV 100.4 H, MCH 32.2 H, MCHC 32.1, RDW Std Deviation 62.7 H, RDW Coeff of Delfina 17.5 H, Plt Count 191, MPV 9.2, Immature Gran % (Auto) 4.300 H, Neut % (Auto) 59.8, Lymph % (Auto) 23.8, [place] % (Auto) 9.4, Eos % (Auto) 1.9, Baso % (Auto) 0.8, Absolute Neuts (auto) 3.9, Absolute Lymphs (auto) 1.54, Nucleated RBC % 0.6 11/12/21 06:10: Sodium 143, Potassium 3.4 L, Chloride 109 H, Carbon Dioxide 2 8.0, Anion Gap 6, BUN 10, Creatinine 0.59 L, Estim Creat Clear Calc 63.59, Est GFR (MDRD) Af Amer 170, Est GFR (MDRD) Non-Af 140, BUN/Creatinine Ratio 17.0, Glucose 75, Calcium 8.0 L 11/12/21 11:30: POC Glucose 55 L Micro: Microbiology 11/08/21 14:25 Nasal Secretion SARS-CoV-2 Antigen (Rapid) - Final Rhythm Strip Rhythm Strip: Sinus Rhythm Rate: 65 Ectopy: None Physical Exam Const alert, oriented x3 and no apparent distress General Appearance: cooperative HEENT normocephalic Neck supple General: trachea midline Lymph Lymphatic: no lymphadenopathy noted Resp normal respiratory effort, normal air movement and clear to auscultation bilaterally Cardio regular rate, regular rhythm, S1 normal heart sound, S2 normal heart sound and peripheral pulses 2+ throughout GI normal to inspection, nondistended, normoactive bowel sounds, soft to palpation and non-tender Extremity normal capillary refill General Extremity: no tenderness to palpation of joints or extremities Skin Wound Narrative: Abrasion to right knee noted, no signs or symptoms of infection. Neuro oriented x3, moves all extremities, no focal motor deficits and no sensory deficits noted Sensorium / Orientation: awake Psych thought process normal, cooperative and affect normal Assessment & Plan Assessment/Plan (1) Syncope and collapse: (2) Acute GI bleeding: PLAN: Plan 1.? Acute GI bleed -Hemoglobin stable -CBC daily -Continue IV Protonix -Continue to trend H&H -Patient was taken for EGD and colonoscopy with Dr. Delgado 11/09/21.? EGD shows medium size hiatal hernia, erythematous mucosa in the stomach which was biopsied and a single duodenal polyp which was resected and retrieved.? Colonoscopy demonstrated blood in the entire examined colon with stool in the rectum, rectosigmoid colon, sigmoid colon, splenic flexure, transverse colon, cecum.? Stat CT angio of abdomen and pelvis ordered patient continues to be n.p.o. -Patient going for repeat anoscopy later today with Dr. Delgado 2.? Weakness -Per patient weakness is gotten worse over the past few weeks -PT and OT following -Fall precautions ordered -Patient is a max to assist, patient approved [facility] 3.? Syncope with collapse -Echocardiogram demonstrates EF 65%, Grade 2 diastolic dysfunction. -Orthostatic vital signs + -Fall precautions 4.? Hypertension -Vital signs per protocol, currently stable -Continue furosemide, losartan, metoprolol 5.? Diabetes mellitus type 2 -ACH S blood sugars with sliding scale insulin -Hold metformin -Hemoglobin A1c 5.9 6.? Hyperlipidemia -Continue pravastatin 7.? BPH -Continue tamsulosin 8.? Depression -Continue bupropion and escitalopram DVT prophylaxis-SCDs This patient was seen by Ignacia Whitlock NP-C under the supervision of Dr. Reyes. 14 minutes spent in clinical coordination of patient's plan of care.
[2021-11-12] MEDS: Dextrose 10%-Water 250 ML 999 ML IV (11:56)
[2021-11-12] MEDS: Dextrose 5%/0.9% NaCl 1,000 ML 75 ML IV (12:26)
--- NOTE | 2021-11-12 12:48 | NURSING ---
Morning PO meds on hold per Maldonado Whitlock NP as pt has colonoscopy scheduled for this afternoon
[2021-11-12] MEDS: 0.9% Normal Saline 1,000 ML 15 ML IV (14:12)
[2021-11-12 14:14] LABS: Hematocrit 24.3 % (40-54); Hemoglobin 7.9 g/dL (13.0-16.5)
--- NOTE | 2021-11-12 16:02 | OP.CCLET_ITS ---
02/25/2022 All Montero [address] [place] [address] Re : Colonoscopy procedure for King Daigle Dear Dr. Montero This procedure was performed on Friday, November 12, 2021. My impressions and recommendations are as follows: Impressions : - Stool in the rectum. - Stool in the recto-sigmoid colon, in the descending colon, in the ascending colon and in the cecum. - Diverticulosis in the sigmoid colon, in the transverse colon and at the hepatic flexure. - No specimens collected. Recommendations : - Discharge patient to home. - Resume previous diet. - Continue present medications. - No repeat colonoscopy due to age. My findings are described in the full procedure note, which is enclosed. If I can be of further assistance, please feel free to contact me at . Sincerely, Jose Delgado, 11/12/2021 4:01:32 PM This report has been signed electronically.
--- NOTE | 2021-11-12 16:02 | OP.COLON_ITS ---
Patient Name: King Daigle Procedure Date: 11/12/2021 3:27 PM Date of : 1940 Age: 81 Procedure: Colonoscopy Indications: Hematochezia Providers: Jose Delgado DO Medicines: Monitored Anesthesia Care Patient Profile: This is an 81 year old male. Refer to note in patient chart for documentation of history and physical. Last Colonoscopy: date unknown. Complications: No immediate complications. Procedure: Pre-Anesthesia Assessment: - Prior to the procedure, a History and Physical was performed, and patient medications and allergies were reviewed. The risks and benefits of the procedure and the sedation options and risks were discussed with the patient. All questions were answered and informed consent was obtained. Patient identification and proposed procedure were verified by the physician in the pre-procedure area. Mental Status Examination: alert and oriented. Airway Examination: normal oropharyngeal airway and neck mobility. Respiratory Examination: clear to auscultation. CV Examination: normal. Prophylactic Antibiotics: The patient does not require prophylactic antibiotics. Prior Anticoagulants: The patient has taken no previous anticoagulant or antiplatelet agents. After reviewing the risks and benefits, the patient was deemed in satisfactory condition to undergo the procedure. The anesthesia plan was to use moderate sedation / analgesia (conscious sedation). Immediately prior to administration of medications, the patient was re-assessed for adequacy to receive sedatives. The heart rate, respiratory rate, oxygen saturations, blood pressure, adequacy of pulmonary ventilation, and response to care were monitored throughout the procedure. The physical status of the patient was re-assessed after the procedure. After I obtained informed consent, the scope was passed under direct vision. Throughout the procedure, the patient's blood pressure, pulse, and oxygen saturations were monitored continuously. The pediatric colonoscope was introduced through the anus and advanced to the cecum, identified by appendiceal orifice and ileocecal valve. The ileocecal valve, appendiceal orifice, and rectum were photographed. Moderate Sedation: Moderate (conscious) sedation was personally administered by an anesthesia professional. The following parameters were monitored: oxygen saturation, heart rate, blood pressure, respiratory rate, EKG, adequacy of pulmonary ventilation, and response to care. Scope In: 3:44:58 PM Scope Withdrawal Time 0 hours 5 minutes 47 seconds Scope Out: 3:56:34 PM Total Procedure Duration Time 0 hours 11 minutes 36 seconds Findings: The perianal and digital rectal examinations were normal. Extensive amounts of stool was found in the rectum, precluding visualization. A moderate amount of stool was found in the recto-sigmoid colon, in the descending colon, in the ascending colon and in the cecum, precluding visualization. A few small-mouthed diverticula were found in the sigmoid colon, transverse colon and hepatic flexure. Impression: - Stool in the rectum. - Stool in the recto-sigmoid colon, in the descending colon, in the ascending colon and in the cecum. - Diverticulosis in the sigmoid colon, in the transverse colon and at the hepatic flexure. - No specimens collected. Recommendation: - Discharge patient to home. - Resume previous diet. - Continue present medications. - No repeat colonoscopy due to age. Procedure Code(s): --- Professional --- 65127, Colonoscopy, flexible; diagnostic, including collection of specimen(s) by brushing or washing, when performed (separate procedure) CPT copyright 2017 [employer]. All rights reserved. The codes documented in this report are preliminary and upon smasher review may be revised to meet current compliance requirements. Jose Delgado DO 11/12/2021 4:01:32 PM This report has been signed electronically. Number of Addenda: 1 Note Initiated On: 11/12/2021 3:27 PM Addendum Number: 1 Addendum Date: 02/25/2022 6:08:53 AM MAC was used as sedation for this procedure. Jose Delgado DO 02/25/2022 6:08:57 AM This report has been signed electronically.
--- NOTE | 2021-11-12 16:08 | TREXTCAR_ITS ---
Diet 11/12/21 16:02 Diet: Regular - General Is pt able to select menu?: Yes Diet Comments: no reds or purples Routine Orders/Code Status Enema Type: Fleetz Enema Frequency: Daily PRN Suppository Type: Dulcolax 10mg Suppository Frequency: Daily PRN O2 Frequency: PRN Keep PO Greater than or Equal to (%): 92 Routine Lab Work: CBC (QOD x3) and BMP (4 days) Code Status: Full Code Wound(s) right knee: Wound Type: healing wound from recent fall Suggestions for Active Care Change Position every (hours): 2 Times a day to sit in chair: 3 Therapies Physical Therapy: Eval and Treat Occupational Therapy: Eval and Treat Allergies/Procedures Done in Hospital Allergies No Known Allergies Allergy (Verified 02/19/21 12:22) Procedures: Colonoscopy and EGD Type of Care/Length of Stay Estimated LOS: Convalescent Care Less Than 30 days Type of Care Needed: Skilled Rehab Potential: Good Prognosis: Good Additional Orders/Day of Discharge Day of Discharge: 11/12/21 Dietary and Speech Recommendations Dietitian Recommendations/Changes: Recommend PO as tolerated to Transitional diet; ONS pending PO intake when established. Discharge Plan Admission Admit Date/Time: 11/09/21 11:50 Primary Reason for Your Visit: GI bleed Attending Provider: Judi Reyes Primary Care Provider: All Montero Consulting Providers: Yeison Austin ; Siddharth Hernandez Discharge Orders/Prescriptions Prescriptions: New potassium chloride [Klor-Con M20] 20 mEq Tablet,Er Particles/Crystals 20 meq PO BIDCM Qty: 0 0RF ascorbic acid (vitamin C) 500 mg Tablet 500 mg PO BIDCM Qty: 0 0RF ferrous sulfate [FeroSul] 325 mg (65 mg iron) Tablet 325 mg PO LUNCH Qty: 0 0RF pantoprazole 40 mg tablet,delayed release (DR/EC) 40 mg PO DAILY Qty: 30 0RF Continued nitroglycerin 0.4 mg tablet, sublingual 0.4 mg SUBLINGUAL Q5-15M PRN (Reason: chest pain) Qty: 25 6RF Rx Instructions: until response; do not exceed 3 doses per episode metoprolol tartrate 25 mg tablet 25 mg PO BID losartan 50 mg tablet 50 mg PO DAILY pravastatin 40 mg tablet 40 mg PO QHS tamsulosin 0.4 mg capsule 0.4 mg PO QHS metformin 500 mg tablet extended release 24 hr 500 mg PO QHS cholecalciferol (vitamin D3) 1,250 mcg (50,000 unit) capsule 50,000 unit PO FR Label Comments: TAKE 1 CAPSULE BY MOUTH ONCE A WEEK albuterol sulfate [ProAir HFA] 90 mcg/actuation HFA aerosol inhaler 2 puff inhalation Q6H PRN (Reason: wheezing) bupropion HCl 300 MG tablet extended release 24 hr 300 mg PO DAILY fish,bora,flax oils-om3,6,9no1 400 MG capsule 800 mg PO BID cyanocobalamin (vitamin B-12) 2,500 MCG tablet 2,500 mcg PO DAILY escitalopram oxalate 20 mg tablet 20 mg PO DAILY Centrum Silver Men 300-600-300 mcg Tablet 1 tab PO DAILY magnesium oxide 400 mg magnesium Tablet 400 mg PO BID furosemide [Lasix] 40 mg tablet 60 mg PO BID Qty: 270 3RF Held aspirin 81 mg tablet,chewable 81 mg PO DAILY@0800 Hold Instructions: Resume on 11/19/21. Discontinued potassium chloride 10 mEq capsule, extended release 10 meq PO BID Referrals / Follow Up: All Montero MD [Primary Care Provider] - Disposition Disposition (needs filled in before D/C Order can be placed): [facility]
--- NOTE | 2021-11-12 16:20 | CASEMGMT ---
Patient is ready to go to [place]. ALAYNA called patient's son and left him a message letting him know patient will be going to [place] today. D/C manager of planning notified Basia at [place]. Green sheet on chart for staff to finish d/c. Plan: d/c to [place] under skilled level of care on a convalescent stay. Physicians will transport patient. Sailaja ROQUE
[2021-11-12 17:10] LABS: Bedside Glucose 42 mg/dL (74-106)
[2021-11-12] MEDS: Multivitamins,Ther W-Minerals Tablet 1 TABLET PO (17:15)
[2021-11-12] MEDS: Ferrous Sulfate 325 MG Tablet PO (17:15)
[2021-11-12] MEDS: Escitalopram Oxalate 20 MG Tablet PO (17:15)
[2021-11-12] MEDS: Potassium Chloride Oral Tablet 20 MEQ PO ×2 (17:15→17:30)
[2021-11-12] MEDS: Magnesium Chloride 64 MG Delay Rel.Tablet 128 MG PO ×2 (17:15→21:03)
[2021-11-12] MEDS: Cyanocobalamin 500 MCG Tablet 2500 MCG PO (17:15)
[2021-11-12] MEDS: Ascorbic Acid 500 MG Tablet PO ×2 (17:15→17:30)
[2021-11-12] MEDS: buPROPion (XL) 300 MG TABLET.XL PO (17:15)
[2021-11-12] MEDS: Dextrose 50%-Water 25 GM/50 ML DISP.SYRIN IV (17:18)
[2021-11-12 18:11] LABS: Bedside Glucose 63 mg/dL (74-106)
[2021-11-12 20:11] LABS: Hematocrit 24.4 % (40-54)
[2021-11-12] MEDS: Pravastatin 40 MG Tablet PO (21:03)
[2021-11-12] MEDS: Tamsulosin HCl 0.4 MG Capsule PO (21:03)
[2021-11-12 22:46] LABS: Bedside Glucose 96 mg/dL (74-106)
[2021-11-12 22:46] LABS: Bedside Glucose 69 mg/dL (74-106)
[2021-11-13 02:10] LABS: Hematocrit 25.5 % (40-54)
[2021-11-13 03:00] VITALS: PULSE 67
[2021-11-13 04:50] VITALS: BP 119/59; PULSE 68; RESP 18; TEMP 37.1; O2SAT 93
[2021-11-13] MEDS: Dextrose 5%/0.9% NaCl 1,000 ML 75 ML IV (05:17)
[2021-11-13 06:24] LABS: Absolute Lymphocyte Count 1.26 X10^3/uL (0.83-4.51); Absolute Neutrophil Count 3.7 X10^3/uL (2.0-7.7); Basophil# 0.04 X10^3/uL; Basophil% 0.7 % (0-1); Eosinophil# 0.13 X10^3/uL; Eosinophils% 2.2 % (0-5); Hematocrit 24.4 % (40-54); Hemoglobin 7.9 g/dL (13.0-16.5); Lymphocyte # 1.26 X10^3/ul (0.83-4.51); Lymphocyte % 21.2 % (19-41); Mean Corp Hgb Conc 32.4 g/dL (32-36); Mean Corpuscular Hgb 32.4 pg (27.0-32.0); Monocyte# 0.62 X10^3/uL; Monocyte% 10.4 % (0-10); NRBC Flagged by Analyzer 0.7 % (0-5); Neutrophil % 62.3 % (47-70); Platelet Count 188 K/mm3 (150-450); RBC Distribution Width CV 17.4 % (11.6-14.6); RBC Distribution Width SD 60.5 fl (35.1-43.9); Red Blood Count 2.44 M/mm3 (4.6-6.2); White Blood Count 5.9 K/mm3 (4.4-11.0)
[2021-11-13 06:41] LABS: Bedside Glucose 96 mg/dL (74-106)
[2021-11-13 06:59] LABS: Anion Gap 1 (5-15); BUN 6 mg/dL (7-18); BUN/Creat Ratio 9.3 RATIO (10-20); Calcium,Total 8.1 mg/dL (8.5-10.1); Chloride 112 mmol/L (98-107); Creatinine, Serum 0.65 mg/dL (0.70-1.30); EST Glomerular Filtration Rate 126 mL/min (>60); Est Glom Filt Rate - Afr Amer 152 mL/min (>60); Estimated Creatinine Clearance 63.59 ml/min; Glucose 98 mg/dL (74-106); Potassium 3.7 mmol/L (3.5-5.1); Sodium Level 141 mmol/L (136-145)
[2021-11-13 07:08] VITALS: PULSE 70
[2021-11-13 07:41] LABS: Bedside Glucose 68 mg/dL (74-106)
[2021-11-13 07:41] LABS: Bedside Glucose 65 mg/dL (74-106)
[2021-11-13 08:02] VITALS: BP 140/73; PULSE 70; RESP 18; TEMP 36.5; O2SAT 92
[2021-11-13] MEDS: Potassium Chloride Oral Tablet 20 MEQ PO (08:05)
[2021-11-13] MEDS: Magnesium Chloride 64 MG Delay Rel.Tablet 128 MG PO (08:05)
[2021-11-13] MEDS: Multivitamins,Ther W-Minerals Tablet 1 TABLET PO (08:05)
[2021-11-13 08:06] VITALS: BP 140/73; PULSE 70
[2021-11-13] MEDS: Losartan Potassium 50 MG Tablet PO (08:06)
[2021-11-13] MEDS: Cyanocobalamin 500 MCG Tablet 2500 MCG PO (08:06)
[2021-11-13] MEDS: Metoprolol Tartrate 25 MG Tablet PO (08:06)
[2021-11-13 08:16] VITALS: O2SAT 92
[2021-11-13] MEDS: Menthol/Lanolin/Calamine/Znox 113 GM Tube 1 APPLIC TOPICAL (08:22)
[2021-11-13] MEDS: buPROPion (XL) 300 MG TABLET.XL PO (08:22)
[2021-11-13] MEDS: Ascorbic Acid 500 MG Tablet PO (08:22)
[2021-11-13] MEDS: Escitalopram Oxalate 20 MG Tablet PO (08:22)
--- NOTE | 2021-11-13 08:59 | DS.PCM_ITS ---
Documented by User: KORIN Castellon 11/13/21 08:59 Providers Date of Admission: 11/09/21 Date of Discharge: 11/12/21 Primary Care Physician: Dr. 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 for wed EMERGENT Consult: No MD Notified: Yes Date Notified: 11/09/21 Time Notified: 11:00 Method of Notification: Verbal Reason For Visit: syncope Diagnosis Discharge Diagnosis (1) Syncope and collapse: Status: Acute Code(s): R55 - Syncope and collapse (2) Acute GI bleeding: Status: Acute Code(s): K92.2 - Gastrointestinal hemorrhage, unspecified Medications at Discharge Home Medications losartan 50 mg tablet 50 mg PO DAILY 02/23/18 metformin 500 mg tablet,extended release 24 hr 500 mg PO QHS 02/23/18 metoprolol tartrate 25 mg tablet 25 mg PO BID 02/23/18 pravastatin 40 mg tablet 40 mg PO QHS 02/23/18 tamsulosin 0.4 mg capsule 0.4 mg PO QHS 02/23/18 bupropion HCl 300 mg 24 hr tablet, extended release 300 mg PO DAILY 02/24/18 cyanocobalamin (vitamin B-12) 2,500 mcg tablet 2,500 mcg PO DAILY 02/24/18 fish, borage, flaxseed oils-omega 3,6,9 cb #1 400 mg-400 mg-400 mg cap 800 mg PO BID 02/24/18 nitroglycerin 0.4 mg sublingual tablet 0.4 mg sublingual Q5-15M PRN chest pain #25 tabs 02/24/18 aspirin 81 mg chewable tablet 81 mg PO DAILY@0800 10/06/19 cholecalciferol (vitamin D3) 1,250 mcg (50,000 unit) capsule 50,000 unit PO FR 10/06/19 albuterol sulfate 90 mcg/actuation aerosol inhaler (ProAir HFA) 2 puff inhalation Q6H PRN wheezing 02/19/21 furosemide 40 mg tablet (Lasix) 60 mg PO BID #270 tabs 03/26/21 escitalopram oxalate 20 mg tablet 20 mg PO DAILY DEPRESSION 11/08/21 magnesium oxide 400 mg PO BID SUPPLEMENT 11/08/21 cdljbvad-lig-efral acid 300 mcg-lycopene 600 mcg-lutein 300 mcg tablet (Centrum Silver Men) 1 tab PO DAILY 11/08/21 ascorbic acid (vitamin C) 500 mg tablet 500 mg PO BIDCM #0 tabs 11/12/21 ferrous sulfate 325 mg (65 mg iron) tablet (FeroSul) 325 mg PO LUNCH #0 tabs 11/12/21 pantoprazole 40 mg tablet,delayed release 40 mg PO DAILY #30 tabs 11/12/21 potassium chloride 20 mEq tablet,extended release(part/cryst) (Klor-Con M) 20 meq PO BIDCM #0 tabs 11/12/21 Hospital Course Operations None Procedures Colonoscopy and EGD Summary of Care Provided Minutes Spent on Discharge: 35 Hospital Course: Patient is an 81-year-old male who originally presented to the ER with altered mental status. Patient was reporting blood in his stool at that time. Over the past 3 days patient has underwent EGD x1 and colonoscopy x2. Patient was not found to have an active bleed however patient did have stool remaining in his colon despite extensive bowel prep and enemas x6. Patient's hemoglobin has stabilized and has been between 7.8 and 8.4 for the past 2 days. Patient did receive 1 unit packed red blood cells during admission. Patient is extremely weak and unable to care for himself or function independently. Patient will be transferred to the [facility] for PT and OT. Patient will follow up with Dr. Delgado in 3 weeks. Patient will continue on iron supplementation as well as pantoprazole. During admission patient was also noted to be hypokalemic and will continue to receive potassium replacement. BMP should be checked in 4 days and CBC should be repeated every other day x3 days unless patient begins to bleed again in which a stat CBC should be obtained. Patient okay to return to cardiac diabetic diet. Physical Exam Const alert, oriented x3 and no apparent distress General Appearance: cooperative HEENT normocephalic Neck supple General: trachea midline Lymph Lymphatic: no lymphadenopathy noted Resp normal respiratory effort, normal air movement and clear to auscultation bilaterally Cardio regular rate, regular rhythm, S1 normal heart sound, S2 normal heart sound and peripheral pulses 2+ throughout GI normal to inspection, nondistended, normoactive bowel sounds, soft to palpation and non-tender Extremity normal capillary refill General Extremity: no tenderness to palpation of joints or extremities Skin Wound Narrative: Abrasion to right knee noted, no signs or symptoms of infection. Neuro oriented x3, moves all extremities, no focal motor deficits and no sensory deficits noted Sensorium / Orientation: awake Psych thought process normal, cooperative and affect normal Weight / BMI Weight Weight: 263 lb 0.183 oz Body Mass Index (BMI) 35.6 ABG / Lab / Microbiology Data Result Diagrams: 11/13/21 05:55 11/13/21 05:55 Laboratory: Laboratory Results - last 24 hr 11/08/21 10:20: Crossmatch See Detail 11/11/21 16:30: POC Glucose 77 11/11/21 19:41: Hgb 8.0 L, Hct 24.8 L 11/11/21 20:51: POC Glucose 86 11/12/21 03:56: Hgb 7.6 L, Hct 23.9 L 11/12/21 05:06: POC Glucose 72 L 11/12/21 06:10: WBC 6.5, RBC 2.61 L, Hgb 8.4 L, Hct 26.2 L, MCV 100.4 H, MCH 32.2 H, MCHC 32.1, RDW Std Deviation 62.7 H, RDW Coeff of Delfina 17.5 H, Plt Count 191, MPV 9.2, Immature Gran % (Auto) 4.300 H, Neut % (Auto) 59.8, Lymph % (Auto) 23.8, [place] % (Auto) 9.4, Eos % (Auto) 1.9, Baso % (Auto) 0.8, Absolute Neuts (auto) 3.9, Absolute Lymphs (auto) 1.54, Nucleated RBC % 0.6 11/12/21 06:10: Sodium 143, Potassium 3.4 L, Chloride 109 H, Carbon Dioxide 28.0, Anion Gap 6, BUN 10, Creatinine 0.59 L, Estim Creat Clear Calc 63.59, Est GFR (MDRD) Af Amer 170, Est GFR (MDRD) Non-Af 140, BUN/Creatinine Ratio 17.0, Gl ucose 75, Calcium 8.0 L 11/12/21 11:30: POC Glucose 55 L 11/12/21 13:50: Hgb 7.9 L, Hct 24.3 L Microbiology: Microbiology 11/08/21 14:25 Nasal Secretion SARS-CoV-2 Antigen (Rapid) - Final Meaningful Use Info Meaningful Use Diagnoses (Choose all that apply): None applicable Discharge Plan Admission Admit Date/Time: 11/09/21 11:50 Primary Reason for Your Visit: GI bleed Attending Provider: Judi Reyes Primary Care Provider: All Montero Consulting Providers: Yeison Austin ; Siddharth Hernandez Discharge Orders/Prescriptions Prescriptions: New potassium chloride [Klor-Con M20] 20 mEq Tablet,Er Particles/Crystals 20 meq PO BIDCM Qty: 0 0RF ascorbic acid (vitamin C) 500 mg Tablet 500 mg PO BIDCM Qty: 0 0RF ferrous sulfate [FeroSul] 325 mg (65 mg iron) Tablet 325 mg PO LUNCH Qty: 0 0RF pantoprazole 40 mg tablet,delayed release (DR/EC) 40 mg PO DAILY Qty: 30 0RF Continued nitroglycerin 0.4 mg tablet, sublingual 0.4 mg SUBLINGUAL Q5-15M PRN (Reason: chest pain) Qty: 25 6RF Rx Instructions: until response; do not exceed 3 doses per episode metoprolol tartrate 25 mg tablet 25 mg PO BID losartan 50 mg tablet 50 mg PO DAILY pravastatin 40 mg tablet 40 mg PO QHS tamsulosin 0.4 mg capsule 0.4 mg PO QHS metformin 500 mg tablet extended release 24 hr 500 mg PO QHS cholecalciferol (vitamin D3) 1,250 mcg (50,000 unit) capsule 50,000 unit PO FR Label Comments: TAKE 1 CAPSULE BY MOUTH ONCE A WEEK albuterol sulfate [ProAir HFA] 90 mcg/actuation HFA aerosol inhaler 2 puff inhalation Q6H PRN (Reason: wheezing) bupropion HCl 300 MG tablet extended release 24 hr 300 mg PO DAILY fish,bora,flax oils-om3,6,9no1 400 MG capsule 800 mg PO BID cyanocobalamin (vitamin B-12) 2,500 MCG tablet 2,500 mcg PO DAILY escitalopram oxalate 20 mg tablet 20 mg PO DAILY Centrum Silver Men 300-600-300 mcg Tablet 1 tab PO DAILY magnesium oxide 400 mg magnesium Tablet 400 mg PO BID furosemide [Lasix] 40 mg tablet 60 mg PO BID Qty: 270 3RF Held aspirin 81 mg tablet,chewable 81 mg PO DAILY@0800 Hold Instructions: Resume on 11/19/21. Discontinued potassium chloride 10 mEq capsule, extended release 10 meq PO BID Referrals / Follow Up: Yeison Austin MD [STAFF PHYSICIAN] - Within 1 Week All Montero MD [Primary Care Provider] - FriendJose DO [STAFF PHYSICIAN] - Within 2 Weeks (2-3 weeks) Disposition Disposition (needs filled in before D/C Order can be placed): Long Term Facility Documented by User: Dr. Judi Reyes MD 11/13/21 15:35 Providers Date of Admission: 11/09/21 Reason For Visit: syncope Diagnosis Discharge Diagnosis (1) Syncope and collapse: Status: Acute Code(s): R55 - Syncope and collapse (2) Acute GI bleeding: Status: Acute Code(s): K92.2 - Gastrointestinal hemorrhage, unspecified Medications at Discharge Home Medications losartan 50 mg tablet 50 mg PO DAILY 02/23/18 metformin 500 mg tablet,extended release 24 hr 500 mg PO QHS 02/23/18 metoprolol tartrate 25 mg tablet 25 mg PO BID 02/23/18 pravastatin 40 mg tablet 40 mg PO QHS 02/23/18 tamsulosin 0.4 mg capsule 0.4 mg PO QHS 02/23/18 bupropion HCl 300 mg 24 hr tablet, extended release 300 mg PO DAILY 02/24/18 cyanocobalamin (vitamin B-12) 2,500 mcg tablet 2,500 mcg PO DAILY 02/24/18 fish, borage, flaxseed oils-omega 3,6,9 cb #1 400 mg-400 mg-400 mg cap 800 mg PO BID 02/24/18 nitroglycerin 0.4 mg sublingual tablet 0.4 mg sublingual Q5-15M PRN chest pain #25 tabs 02/24/18 aspirin 81 mg chewable tablet 81 mg PO DAILY@0800 10/06/19 cholecalciferol (vitamin D3) 1,250 mcg (50,000 unit) capsule 50,000 unit PO FR 10/06/19 albuterol sulfate 90 mcg/actuation aerosol inhaler (ProAir HFA) 2 puff inhalation Q6H PRN wheezing 02/19/21 furosemide 40 mg tablet (Lasix) 60 mg PO BID #270 tabs 03/26/21 escitalopram oxalate 20 mg tablet 20 mg PO DAILY DEPRESSION 11/08/21 magnesium oxide 400 mg PO BID SUPPLEMENT 11/08/21 piwnpmjw-pgj-rdixc acid 300 mcg-lycopene 600 mcg-lutein 300 mcg tablet (Centrum Silver Men) 1 tab PO DAILY 11/08/21 ascorbic acid (vitamin C) 500 mg tablet 500 mg PO BIDCM #0 tabs 11/12/21 ferrous sulfate 325 mg (65 mg iron) tablet (FeroSul) 325 mg PO LUNCH #0 tabs 11/12/21 pantoprazole 40 mg tablet,delayed release 40 mg PO DAILY #30 tabs 11/12/21 potassium chloride 20 mEq tablet,extended release(part/cryst) (Klor-Con M) 20 me q PO BIDCM #0 tabs 11/12/21 ABG / Lab / Microbiology Data Result Diagrams: 11/13/21 05:55 11/13/21 05:55 Discharge Plan Admission Admit Date/Time: 11/09/21 11:50 Primary Reason for Your Visit: GI bleed Attending Provider: Judi Reyes Primary Care Provider: All Montero Consulting Providers: Yeison Austin ; Siddharth Hernandez Discharge Orders/Prescriptions Prescriptions: New potassium chloride [Klor-Con M20] 20 mEq Tablet,Er Particles/Crystals 20 meq PO BIDCM Qty: 0 0RF ascorbic acid (vitamin C) 500 mg Tablet 500 mg PO BIDCM Qty: 0 0RF ferrous sulfate [FeroSul] 325 mg (65 mg iron) Tablet 325 mg PO LUNCH Qty: 0 0RF pantoprazole 40 mg tablet,delayed release (DR/EC) 40 mg PO DAILY Qty: 30 0RF Continued nitroglycerin 0.4 mg tablet, sublingual 0.4 mg SUBLINGUAL Q5-15M PRN (Reason: chest pain) Qty: 25 6RF Rx Instructions: until response; do not exceed 3 doses per episode metoprolol tartrate 25 mg tablet 25 mg PO BID losartan 50 mg tablet 50 mg PO DAILY pravastatin 40 mg tablet 40 mg PO QHS tamsulosin 0.4 mg capsule 0.4 mg PO QHS metformin 500 mg tablet extended release 24 hr 500 mg PO QHS cholecalciferol (vitamin D3) 1,250 mcg (50,000 unit) capsule 50,000 unit PO FR Label Comments: TAKE 1 CAPSULE BY MOUTH ONCE A WEEK albuterol sulfate [ProAir HFA] 90 mcg/actuation HFA aerosol inhaler 2 puff inhalation Q6H PRN (Reason: wheezing) bupropion HCl 300 MG tablet extended release 24 hr 300 mg PO DAILY fish,bora,flax oils-om3,6,9no1 400 MG capsule 800 mg PO BID cyanocobalamin (vitamin B-12) 2,500 MCG tablet 2,500 mcg PO DAILY escitalopram oxalate 20 mg tablet 20 mg PO DAILY Centrum Silver Men 300-600-300 mcg Tablet 1 tab PO DAILY magnesium oxide 400 mg magnesium Tablet 400 mg PO BID furosemide [Lasix] 40 mg tablet 60 mg PO BID Qty: 270 3RF Held aspirin 81 mg tablet,chewable 81 mg PO DAILY@0800 Hold Instructions: Resume on 11/19/21. Discontinued potassium chloride 10 mEq capsule, extended release 10 meq PO BID Referrals / Follow Up: Yeison Austin MD [STAFF PHYSICIAN] - Within 1 Week All Montero MD [Primary Care Provider] - Jose Delgado DO [STAFF PHYSICIAN] - Within 2 Weeks (2-3 weeks) Disposition Disposition (needs filled in before D/C Order can be placed): Long Term Facility Charges/Coding Addendum Addendum: This patient was seen in conjunction with Aldair Whitlock NP.? I have independently interviewed and examined the patient and reviewed pertinent historical, laboratory, and other data. I have reviewed her note and concur with her documentation 81-year-old male who presents with 2 episodes of syncope. Patient was found to have had hematochezia. He has history of hypertension, CABG x5, hyperlipidemia, type II DM, BPH. He is on aspirin daily. Patient was admitted to the PCU and managed as syncope secondary to acute GI bleed. Patient underwent colonoscopy on 11/09/21 that showed red blood in the entire colon with moderate amount of stool. EGD had showed a nonobstructing Schatzki ring in the lower third of the esophagus, medium size hiatal hernia, moderately diffuse erythematous mucosa without bleeding in the entire examined stomach. Biopsies were taken with a cold forceps. A single 5 mm sessile polyp was found in the second portion of the duodenum. This was removed by cold smear. 2D echo showed EF of 65%, stage II diastolic dysfunction. Patient continues to have intermittent episodes of hematochezia. 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 This was discussed with the vascular surgeon by tessa willett on-call hospitalist. Outpatient follow-up was recommended. Colonoscopy was repeated on 11/12/21 that showed diverticulosis in the sigmoid, transverse colon and hepatic flexure. Patient's hemoglobin was monitored throughout his hospital stay and received 1 unit of blood. Discharge hemoglobin was 7.9. Was discharged on oral iron. On the day of discharge, patient was seen and examined. His family was at the bedside. All questions were answered. Physical Exam: Gen: Comfortable, not pale, not jaundiced CVS:HS I +II, regular, no murmurs RESP: Diminished at lung bases GI: BS present and normal, soft, nontender, no palpable organs EXT:No edema Time spent reviewing patient data, coordinating all aspects of patient's care, discussing with GI and nursin minutes Visit Charges Inpatient E&M: 10468 Disch Hosp
--- NOTE | 2021-11-13 09:34 | PHA.DC.MR ---
Pharmacy Service has performed discharge medication reconciliation for this patient. The patient's discharge medication list was reviewed for discrepancies and discrepancies were resolved. Home Medications losartan 50 mg tablet 50 mg PO DAILY 02/23/18 metformin 500 mg tablet,extended release 24 hr 500 mg PO QHS 02/23/18 metoprolol tartrate 25 mg tablet 25 mg PO BID 02/23/18 pravastatin 40 mg tablet 40 mg PO QHS 02/23/18 tamsulosin 0.4 mg capsule 0.4 mg PO QHS 02/23/18 bupropion HCl 300 mg 24 hr tablet, extended release 300 mg PO DAILY 02/24/18 cyanocobalamin (vitamin B-12) 2,500 mcg tablet 2,500 mcg PO DAILY 02/24/18 fish, borage, flaxseed oils-omega 3,6,9 cb #1 400 mg-400 mg-400 mg cap 800 mg PO BID 02/24/18 nitroglycerin 0.4 mg sublingual tablet 0.4 mg sublingual Q5-15M PRN chest pain #25 tabs 02/24/18 aspirin 81 mg chewable tablet 81 mg PO DAILY@0800 10/06/19 cholecalciferol (vitamin D3) 1,250 mcg (50,000 unit) capsule 50,000 unit PO FR 10/06/19 albuterol sulfate 90 mcg/actuation aerosol inhaler (ProAir HFA) 2 puff inhalation Q6H PRN wheezing 02/19/21 furosemide 40 mg tablet (Lasix) 60 mg PO BID #270 tabs 03/26/21 escitalopram oxalate 20 mg tablet 20 mg PO DAILY DEPRESSION 11/08/21 magnesium oxide 400 mg PO BID SUPPLEMENT 11/08/21 uwkiyqpo-ckk-nlbvb acid 300 mcg-lycopene 600 mcg-lutein 300 mcg tablet (Centrum Silver Men) 1 tab PO DAILY 11/08/21 ascorbic acid (vitamin C) 500 mg tablet 500 mg PO BIDCM #0 tabs 11/12/21 ferrous sulfate 325 mg (65 mg iron) tablet (FeroSul) 325 mg PO LUNCH #0 tabs 11/12/21 pantoprazole 40 mg tablet,delayed release 40 mg PO DAILY #30 tabs 11/12/21 potassium chloride 20 mEq tablet,extended release(part/cryst) (Klor-Con M) 20 meq PO BIDCM #0 tabs 11/12/21
[2021-11-13] MEDS: Furosemide 20 MG/2 ML VIAL IV (11:11)
[2021-11-13] MEDS: 0.9% Saline Lock 10 ML Syringe IV (11:11)
--- NOTE | 2021-11-13 11:13 | CASEMGMT ---
Discharge Culture Media Laboratory Assistant Patient is ready for discharge to the [facility]. sheet metal supervisor time for [facility] is 11:30am. Son was called and left a VM regarding return. Basia from the [facility] notified. RN notified. Patient notified. Sun Shah Discharge Culture Media Laboratory Assistant
[2021-11-13] MEDS: Ferrous Sulfate 325 MG Tablet PO (11:17)
[2021-11-13 11:25] LABS: Bedside Glucose 163 mg/dL (74-106)
--- NOTE | 2021-11-13 11:30 | NURSING ---
Report called to Rico at [facility]. Pt ready for discharge.
[2021-11-15 09:46] LABS: Bedside Glucose 84 mg/dL (74-106)
== END 2021-11-13 11:52 | disposition skilled nursing facility (03) | DRG 378 ==
LOC: ED 14:36 → PCU 15:48
PROVIDERS: Anesthesiology; Internal Medicine Gastroenterology; Nurse Practitioner Family; Admitting Provider Internal Medicine; Emergency Provider Emergency Medicine; PCP Family Medicine; Visit Provider Internal Medicine
PROC: 0DJD8ZZ Inspection of Lower Intestinal Tract, Via Natural or Artificial Opening Endoscopic (ICD-10-PCS; CPT 45378; principal; 2021-11-09 07:30)
DX: K92.1 Melena (principal); D62 Acute posthemorrhagic anemia; I45.2 Bifascicular block; E11.649 Type 2 diabetes mellitus with hypoglycemia without coma; I95.9 Hypotension, unspecified; E11.9 Type 2 diabetes mellitus without complications; I70.203 Unspecified atherosclerosis of native arteries of extremities, bilateral legs; I70.1 Atherosclerosis of renal artery; I70.0 Atherosclerosis of aorta; E78.5 Hyperlipidemia, unspecified; K57.90 Diverticulosis of intestine, part unspecified, without perforation or abscess without bleeding; K31.7 Polyp of stomach and duodenum; N40.0 Benign prostatic hyperplasia without lower urinary tract symptoms; I10 Essential (primary) hypertension; M19.90 Unspecified osteoarthritis, unspecified site; I25.10 Atherosclerotic heart disease of native coronary artery without angina pectoris; K44.9 Diaphragmatic hernia without obstruction or gangrene; K57.30 Diverticulosis of large intestine without perforation or abscess without bleeding; R55 Syncope and collapse; Z95.1 Presence of aortocoronary bypass graft; F32.A Depression, unspecified; Z79.82 Long term (current) use of aspirin; Z79.84 Long term (current) use of oral hypoglycemic drugs; Z66 Do not resuscitate; N20.0 Calculus of kidney; Z51.5 Encounter for palliative care; Z79.01 Long term (current) use of anticoagulants
CPT/HCPCS: 36415; 70450; 71045; 74174; 80048; 80053; 81001; 82728; 82962; 83036; 83540; 83550; 83605; 83735; 83880; 84100; 84443; 84484; 85014; 85018; 85025; 85610; 85730; 86850; 86900; 86901; 86920; 87426; 87811; 88305; 88342; 93005; 93306; 97163; 97166; 99251; 99285; J7030; J7040; J7120; P9016; Q9957; Q9967; A4216; C8929; G0463; J1940; J2405; J3490; J7799

== ENCOUNTER 2021-11-22 00:08 | Emergency (ER) | payer MEDICARE, SELFPAY ==
[2021-11-22 00:09] VITALS: BP 102/68; PULSE 83; RESP 19; TEMP 36.7; O2SAT 92; BMI 34.0
--- NOTE | 2021-11-22 00:17 | CT_ITS ---
STUDY: CT CERVICAL SPINE WITHOUT CONTRAST REASON FOR EXAM: Male, 81 years old. trauma RADIATION DOSAGE (If Supplied By Facility): CTDIvol = ( 22.61 ) mGy, DLP = ( 927.94 ) mGycm TECHNIQUE: High resolution transaxial imaging was performed without contrast material. Sagittal and coronal images were reconstructed. Individualized dose optimization techniques were used for this CT. COMPARISON: None FINDINGS: Evaluation limited due to motion, severely limiting evaluation at C2-3 level. ALIGNMENT: Normal. VERTEBRAL BODIES: No fracture or acute abnormality. DISC SPACES: Multilevel degenerative changes throughout the visualized spine. POSTERIOR ELEMENTS: Normal. SPINAL CANAL: Normal. PARASPINAL SOFT TISSUES: Normal. LUNG APICES: Visualized portions normal. OTHER: None. CT/Spine Cervical without Contras IMPRESSION: 1. Evaluation limited due to motion, worst at C2-3. 2. Otherwise, no acute fracture or subluxation. 3. Multilevel degenerative changes. Electronically Signed: Aleksey Cunningham MD at 1:40 EDT ,
--- NOTE | 2021-11-22 00:17 | RAD_ITS ---
INDICATION: trauma EXAMINATION/TECHNIQUE: X-RAY - AP view of chest COMPARISON: AP chest x-ray from 11/08/2021. FINDINGS: LINES/DEVICES: None. LUNGS: Persistent bibasilar linear opacities. No pulmonary edema. No sizable pleural effusion. No detectable pneumothorax. MEDIASTINUM AND CARDIOVASCULAR STRUCTURES: Heart size within normal limits for imaging technique. Status post sternotomy and CABG. Atherosclerotic calcifications along aorta. BONES AND SOFT TISSUES: Skeletal degenerative changes. RAD/Chest 1 View (Portable) IMPRESSION: Persistent bibasilar linear scarring versus atelectasis. Electronically Signed: Christopher Hernandez MD at 1:38 EDT ,
--- NOTE | 2021-11-22 00:17 | CT_ITS ---
STUDY: CT BRAIN WITHOUT CONTRAST REASON FOR EXAM: Male, 81 years old. trauma RADIATION DOSAGE (If Supplied By Facility): CTDIvol = ( 44.99 ) mGy, DLP = ( 880.47 ) mGycm TECHNIQUE: Transaxial CT imaging of the brain was performed without administration of intravenous contrast material. Individualized dose optimization techniques were used for this CT. COMPARISON: CT brain 11/08/2021 FINDINGS: BRAIN: Normal montgomery/white matter differentiation. VENTRICLES: The ventricles and cortical sulci are mildly enlarged, similar compared to the prior. Bilateral periventricular hypoattenuation, nonspecific however likely represents chronic microvascular ischemic changes. EXTRA-AXIAL SPACES: No hemorrhages, fluid collections, or masses. CALVARIUM/SKULL BASE: Normal. FACE/SINUSES: Visualized portions normal. SOFT TISSUES: Normal. OTHER: Vascular calcifications. CONCLUSION: No intracranial hemorrhage or depressed calvarial fracture. Senescent changes, similar compared to the prior. Electronically Signed: Aleksey Cunningham MD at 1:30 EDT , CT/Brain/Head without Contrast IMPRESSION: undefined
[2021-11-22 00:39] LABS: Absolute Lymphocyte Count 1.49 X10^3/uL (0.83-4.51); Absolute Neutrophil Count 3.6 X10^3/uL (2.0-7.7); Basophil# 0.04 X10^3/uL; Basophil% 0.7 % (0-1); Eosinophils% 1.6 % (0-5); Hematocrit 30.1 % (40-54); Hemoglobin 9.5 g/dL (13.0-16.5); Lymphocyte # 1.49 X10^3/ul (0.83-4.51); Lymphocyte % 24.4 % (19-41); Mean Corp Hgb Conc 31.6 g/dL (32-36); Mean Corpuscular Hgb 32.2 pg (27.0-32.0); Mean Platelet Vol. 8.4 fl (6.2-12.0); Monocyte# 0.82 X10^3/uL; Monocyte% 13.4 % (0-10); NRBC Flagged by Analyzer 0 % (0-5); Neutrophil # 3.62 X10^3/uL (2.7-7.7); Neutrophil % 59.4 % (47-70); POSITIVE MORPHOLOGY YES; Platelet Count 263 K/mm3 (150-450); RBC Distribution Width CV 18.8 % (11.6-14.6); RBC Distribution Width SD 68.8 fl (35.1-43.9); Red Blood Count 2.95 M/mm3 (4.6-6.2); White Blood Count 6.1 K/mm3 (4.4-11.0)
[2021-11-22 00:44] LABS: Bacteria 0 SEEN /hpf (None Seen); Color, Urine Yellow (Yellow); Glucose, Dipstick Normal (Normal); Ketone-Dipstick Negative (Negative); Leukocyte Esterase-Dipstick Negative /ul (Negative); Mucous, Urine 0 SEEN /hpf (<or=2+); Nitrite-Dipstick Negative (Negative); Occult Blood-Urine Negative /ul (Negative); Protein-Dipstick Negative (Negative); Specific Gravity, Urine 1.015 (1.002-1.030); Squamous Epithelial Cells - UA 0 SEEN /hpf (0-5); Urine Bilirubin Dipstick Negative (Negative); Urine Clarity Clear (Clear); Urine Urobilinogen Normal (Normal); White Blood Cells 0 SEEN /hpf (0-5)
[2021-11-22 00:49] LABS: Differential Indicated SCAN CRITERIA MET
[2021-11-22 00:50] LABS: Red Blood Cells-Urine 0-5 SEEN /hpf (0-5)
[2021-11-22 00:52] LABS: Anion Gap 6 (5-15); BUN 18 mg/dL (7-18); BUN/Creat Ratio 18.7 RATIO (10-20); Calcium,Total 8.7 mg/dL (8.5-10.1); Chloride 105 mmol/L (98-107); Creatinine, Serum 0.96 mg/dL (0.70-1.30); EST Glomerular Filtration Rate 80 mL/min (>60); Est Glom Filt Rate - Afr Amer 96 mL/min (>60); Estimated Creatinine Clearance 66.24 ml/min; Glucose 93 mg/dL (74-106); Potassium 3.5 mmol/L (3.5-5.1); Sodium Level 141 mmol/L (136-145)
[2021-11-22 00:59] LABS: Anisocytosis 2+; Macrocytosis 2+
[2021-11-22 01:00] LABS: Atypical Lymphocyte 1+ %
--- NOTE | 2021-11-22 01:40 | EDS_ITS ---
HPI HPI - Fall History of Present Illness Chief Complaint: Fall Informant: patient, EMS and SNF Narrative Narrative: 81-year-old male reportedly had an unwitnessed fall at around 1700 hrs. He was found to be confused later in the night. It was thought that he had hit his head. Patient does not recall what made him fall. Nursing reports he is ANO x3 and is conversant. He denies any obvious injuries. 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) Pericardial effusion (02/2018) Pneumothorax Postoperative atrial fibrillation Right bundle branch block Sleep apnea Syncope and collapse Type 2 diabetes mellitus Home Medications losartan 50 mg tablet 50 mg PO DAILY 02/23/18 [History Last Taken 11/08/21] metformin 500 mg tablet,extended release 24 hr 500 mg PO QHS 02/23/18 [History Last Taken 11/07/21] metoprolol tartrate 25 mg tablet 25 mg PO BID 02/23/18 [History Last Taken 11/08/21] pravastatin 40 mg tablet 40 mg PO QHS 02/23/18 [History Last Taken 11/07/21] tamsulosin 0.4 mg capsule 0.4 mg PO QHS 02/23/18 [History Last Taken 11/07/21] bupropion HCl 300 mg 24 hr tablet, extended release 300 mg PO DAILY 02/24/18 [History Last Taken 11/08/21] cyanocobalamin (vitamin B-12) 2,500 mcg tablet 2,500 mcg PO DAILY 02/24/18 [History Last Taken 11/08/21] fish, borage, flaxseed oils-omega 3,6,9 cb #1 400 mg-400 mg-400 mg cap 800 mg PO BID 02/24/18 [History Last Taken 11/08/21] nitroglycerin 0.4 mg sublingual tablet 0.4 mg sublingual Q5-15M PRN chest pain #25 tabs 02/24/18 [Rx Last Taken 02/24/18 07:30] aspirin 81 mg chewable tablet 81 mg PO DAILY@0800 10/06/19 [History Last Taken 11/08/21] cholecalciferol (vitamin D3) 1,250 mcg (50,000 unit) capsule 50,000 unit PO FR 10/06/19 [History Last Taken 11/02/21] albuterol sulfate 90 mcg/actuation aerosol inhaler (ProAir HFA) 2 puff inhalation Q6H PRN wheezing 02/19/21 [History Last Taken Unknown] furosemide 40 mg tablet (Lasix) 60 mg PO BID #270 tabs 03/26/21 [Rx Last Taken 11/08/21] escitalopram oxalate 20 mg tablet 20 mg PO DAILY DEPRESSION 11/08/21 [History Last Taken 11/08/21] magnesium oxide 400 mg PO BID SUPPLEMENT 11/08/21 [History Last Taken 11/08/21] ulbatiwk-env-ifblk acid 300 mcg-lycopene 600 mcg-lutein 300 mcg tablet (Centrum Silver Men) 1 tab PO DAILY 11/08/21 [History Last Taken 11/07/21] ascorbic acid (vitamin C) 500 mg tablet 500 mg PO BIDCM #0 tabs 11/12/21 [Rx Last Taken Unknown] ferrous sulfate 325 mg (65 mg iron) tablet (FeroSul) 325 mg PO LUNCH #0 tabs 11/12/21 [Rx Last Taken Unknown] pantoprazole 40 mg tablet,delayed release 40 mg PO DAILY #30 tabs 11/12/21 [Rx Last Taken Unknown] potassium chloride 20 mEq tablet,extended release(part/cryst) (Klor-Con M) 20 meq PO BIDCM #0 tabs 11/12/21 [Rx Last Taken Unknown] Allergy/AdvReac Type Severity Reaction Status Date / Time No Known Allergies Allergy Verified 02/19/21 12:22 Family History Mother Cancer Surgical History H/O coronary artery bypass surgery (03/01/18) H/O inguinal hernia repair H/O rectal polypectomy History of coronary artery stent placement (04/29/04) History of herniorrhaphy S/P pericardiocentesis (02/2018) Social History (Updated 11/22/21 @ 01:[address] Aldair [place], DO) current gender identity: male Smoking Status: Never smoker ROS ROS ED Constitutional Constitutional ED: Denies chills or weight loss Eyes Eyes: Denies change in vision or diplopia ENT ENT ED: Denies ear pain, rhinorrhea or sore throat Cardiovascular Cardiovascular: Denies chest pain, orthopnea, palpitations or racing heartbeat Respiratory/Chest Respiratory/Chest: Denies cough, dyspnea or orthopnea Gastrointestinal Gastrointestinal: Denies abdominal pain, diarrhea, nausea or vomiting Genitourinary Genitourinary ED: Denies dysuria, hematuria or urinary frequency Musculoskeletal Musculoskeletal: Denies arthralgias or myalgias Integumentary Denies abscess or rash Neurologic Neurologic: Denies headache(s) or weakness Psychiatric Psychiatric: Denies anxiety, depression, suicidal ideation or suicidal thoughts Endocrine Endocrinology: Denies polydipsia, polyphagia or polyuria Allergic/Immunologic Allergic/Immunologic ED: Denies mouth swelling, tongue swelling or urticaria EXAM Physical Exam Const Vital Signs: 11/22/21 00:09 11/22/21 00:17 Temperature 98.0 F Temperature Source Temporal Pulse Rate 83 Respiratory Rate 19 H Respiratory Effort Normal Non-Labored Respiratory Depth Normal Respiratory Pattern Normal Blood Pressure 102/68 Blood Pressure Mean 79 Pulse Ox 92 Oxygen Delivery Method Room Air Positive well nourished and well developed General Appearance ED: well developed HEENT Reports normocephalic, head/scalp atraumatic and moist mucous membranes Eyes PERRL and EOMs intact bilaterally Neck no lymphadenopathy, supple and no JVD Resp normal respiratory effort and clear to auscultation bilaterally Cardio regular rate, regular rhythm and no murmurs GI normal to inspection, nondistended, normoactive bowel sounds and non-tender Palpation: soft Back/Spine no CVA tenderness and normal ROM Extremity normal to inspection General Extremety ED: Negative for edema General Extremity: Negative for edema Neuro oriented x3 and CN's II-XII intact bilaterally Sensorium / Orientation: alert Motor Exam: strength 5/5 throughout Psych mental status grossly normal Mood & Affect: Negative for depressed or tearful Skin no rashes or lesions noted and no wounds MDM MDM MDM Narrative Medical decision making narrative: My interpretation of the chest x-ray is no acute process. CT the brain and cervical spine were negative for hemorrhage or fracture. Basic blood work is normal. At this point patient will be discharged back to SNF. Lab Data Attestation: I reviewed the patient's lab results. Labs: Laboratory Results - last 24 hr 11/22/21 11/22/21 11/22/21 00:33 00:33 00:35 WBC 6.1 RBC 2.95 L Hgb 9.5 L Hct 30.1 L MCV 102.0 H MCH 32.2 H MCHC 31.6 L RDW Std Deviation 68.8 H RDW Coeff of Delfina 18.8 H Plt Count 263 MPV 8.4 Immature Gran % (Auto) 0.500 Neut % (Auto) 59.4 Lymph % (Auto) 24.4 [place] % (Auto) 13.4 H Eos % (Auto) 1.6 Baso % (Auto) 0.7 Absolute Neuts (auto) 3.6 Absolute Lymphs (auto) 1.49 Nucleated RBC % 0 Atypical Lymphocytes 1+ Anisocytosis 2+ Macrocytosis 2+ Sodium 141 Potassium 3.5 Chloride 105 Carbon Dioxide 30.0 Anion Gap 6 BUN 18 Creatinine 0.96 Estim Creat Clear Calc 66.24 Est GFR (MDRD) Af Amer 96 Est GFR (MDRD) Non-Af 80 BUN/Creatinine Ratio 18.7 Glucose 93 Calcium 8.7 Urine Color Yellow Urine Clarity Clear Urine pH 6.0 Ur Specific [place] 1.015 Urine Protein Negative Urine Glucose (UA) Normal Urine Ketones Negative Urine Occult Blood Negative Urine Nitrite Negative Urine Bilirubin Negative Urine Urobilinogen Normal Ur Leukocyte Esterase Negative Urine RBC 0-5 SEEN Urine WBC 0 SEEN Ur Squamous Epith Cells 0 SEEN Urine Bacteria 0 SEEN Urine Mucus 0 SEEN Radiography Diagnostic Testing: Clinical Impression(s) from Imaging Studies Brain CT 11/22/21 00:17 IMPRESSION: undefined Cervical Spine CT 11/22/21 00:17 IMPRESSION: 1. Evaluation limited due to motion, worst at C2-3. 2. Otherwise, no acute fracture or subluxation. 3. Multilevel degenerative changes. Electronically Signed: Aleksey Cunningham MD at 1:40 EDT , Chest X-Ray 11/22/21 00:17 IMPRESSION: Persistent bibasilar linear scarring versus atelectasis. Electronically Signed: Christopher Hernandez MD at 1:38 EDT , Discharge Plan Triage Chief Complaint: Fall ED Provider: Aldair Rhoades Dx/Rx/DC Orders Clinical Impression: Acute alteration in mental status, Fall Instructions: ED Fall with Uncertain Cause, ED Head Injury (Adult) Prescriptions: No Action nitroglycerin 0.4 mg tablet, sublingual 0.4 mg SUBLINGUAL Q5-15M PRN (Reason: chest pain) Qty: 25 6RF Rx Instructions: until response; do not exceed 3 doses per episode metoprolol tartrate 25 mg tablet 25 mg PO BID losartan 50 mg tablet 50 mg PO DAILY pravastatin 40 mg tablet 40 mg PO QHS tamsulosin 0.4 mg capsule 0.4 mg PO QHS metformin 500 mg tablet extended release 24 hr 500 mg PO QHS cholecalciferol (vitamin D3) 1,250 mcg (50,000 unit) capsule 50,000 unit PO FR Label Comments: TAKE 1 CAPSULE BY MOUTH ONCE A WEEK albuterol sulfate [ProAir HFA] 90 mcg/actuation HFA aerosol inhaler 2 puff inhalation Q6H PRN (Reason: wheezing) bupropion HCl 300 MG tablet extended release 24 hr 300 mg PO DAILY fish,bora,flax oils-om3,6,9no1 400 MG capsule 800 mg PO BID cyanocobalamin (vitamin B-12) 2,500 MCG tablet 2,500 mcg PO DAILY aspirin 81 mg tablet,chewable 81 mg PO DAILY@0800 Hold Instructions: Resume on 11/19/21. escitalopram oxalate 20 mg tablet 20 mg PO DAILY Centrum Silver Men 300-600-300 mcg Tablet 1 tab PO DAILY magnesium oxide 400 mg magnesium Tablet 400 mg PO BID potassium chloride [Klor-Con M20] 20 mEq Tablet,Er Particles/Crystals 20 meq PO BIDCM Qty: 0 0RF ascorbic acid (vitamin C) 500 mg Tablet 500 mg PO BIDCM Qty: 0 0RF ferrous sulfate [FeroSul] 325 mg (65 mg iron) Tablet 325 mg PO LUNCH Qty: 0 0RF pantoprazole 40 mg tablet,delayed release (DR/EC) 40 mg PO DAILY Qty: 30 0RF furosemide [Lasix] 40 mg tablet 60 mg PO BID Qty: 270 3RF Primary Care Provider: All Montero Referrals: All Montero MD [Primary Care Provider] - As Needed Disposition Disposition: Home, Self Care
--- NOTE | 2021-11-22 01:51 | NURSING ---
report called to nurse at [facility].
[2021-11-22 01:57] VITALS: BP 102/73; PULSE 82; RESP 18; O2SAT 92
== END 2021-11-22 03:39 | disposition home or self-care (01) ==
PROVIDERS: Emergency Provider Emergency Medicine; PCP Family Medicine; Visit Provider Emergency Medicine
DX: R41.82 Altered mental status, unspecified (principal); E11.9 Type 2 diabetes mellitus without complications; I25.10 Atherosclerotic heart disease of native coronary artery without angina pectoris; E78.5 Hyperlipidemia, unspecified; I10 Essential (primary) hypertension; I25.2 Old myocardial infarction; R29.6 Repeated falls
CPT/HCPCS: 70450; 71045; 72125; 80048; 81001; 85025; 93005; 99285; A4216

== ENCOUNTER 2021-11-22 11:21 | Emergency (ER) | payer MEDICARE, SELFPAY ==
[2021-11-22 11:22] VITALS: BP 137/69; PULSE 78; RESP 16; TEMP 36.4; O2SAT 98; BMI 15.6
--- NOTE | 2021-11-22 11:59 | EKG12_ITS ---
Test Reason : Blood Pressure : / mmHG Vent. Rate : 077 BPM Atrial Rate : 077 BPM P-R Int : 154 ms QRS Dur : 142 ms QT Int : 448 ms P-R-T Axes : 023 -78 062 degrees QTc Int : 506 ms Normal sinus rhythm Right bundle branch block Left anterior fascicular block Bifascicular block Abnormal ECG Confirmed by KRIS OBRIEN, ALEJA ([id number]), international editorial producer ANGELICA SALCEDO ([id number]) on 11/26/2021 10:12:16 AM Referred By: Confirmed By:ALEJA PONCE MD
--- NOTE | 2021-11-22 12:01 | EX.ED.DYSGE1 ---
HPI History of Present Illness Chief Complaint: Alt LOC Informant: patient and family Onset/Context/Timing Onset: Today Context: Gradual Onset Timing: Continuous Current Severity: Mild Maximum Severity: Mild Narrative Narrative: 81-year-old male history of CAD, CABG and diabetic. Currently living at the nursing facility the [place]. Was seen this morning after midnight for a fall. Had a negative work-up and CAT scan at that time. Today was brought in for mental status change and possibly hypoxia. Patient herself denies any complaints. Son is present in the room and said this is not his normal mental status. He has had no recent illness he was admitted to the hospital 2 weeks ago. At that time he had a GI bleed and needed transfusions. 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 Bifascicular block BPH (benign prostatic hyperplasia) Depression Essential (primary) hypertension Hyperlipidemia Incomplete right bundle branch block Obesity Old anterior myocardial infarction (04/29/04) Pericardial effusion (02/2018) Pneumothorax Postoperative atrial fibrillation Right bundle branch block Sleep apnea Syncope and collapse Type 2 diabetes mellitus Home Medications losartan 50 mg tablet 50 mg PO DAILY 02/23/18 [History Last Taken 11/08/21] metformin 500 mg tablet,extended release 24 hr 500 mg PO QHS 02/23/18 [History Last Taken 11/07/21] metoprolol tartrate 25 mg tablet 25 mg PO BID 02/23/18 [History Last Taken 11/08/21] pravastatin 40 mg tablet 40 mg PO QHS 02/23/18 [History Last Taken 11/07/21] tamsulosin 0.4 mg capsule 0.4 mg PO QHS 02/23/18 [History Last Taken 11/07/21] bupropion HCl 300 mg 24 hr tablet, extended release 300 mg PO DAILY 02/24/18 [History Last Taken 11/08/21] cyanocobalamin (vitamin B-12) 2,500 mcg tablet 2,500 mcg PO DAILY 02/24/18 [History Last Taken 11/08/21] fish, borage, flaxseed oils-omega 3,6,9 cb #1 400 mg-400 mg-400 mg cap 800 mg PO BID 10/03/18 [History Last Taken 11/08/21] nitroglycerin 0.4 mg sublingual tablet 0.4 mg sublingual Q5-15M PRN chest pain #25 tabs 02/24/18 [Rx Last Taken 02/24/18 07:30] aspirin 81 mg chewable tablet 81 mg PO DAILY@0800 10/06/19 [History Last Taken 11/08/21] cholecalciferol (vitamin D3) 1,250 mcg (50,000 unit) capsule 50,000 unit PO FR 10/06/19 [History Last Taken 11/02/21] albuterol sulfate 90 mcg/actuation aerosol inhaler (ProAir HFA) 2 puff inhalation Q6H PRN wheezing 02/19/21 [History Last Taken Unknown] furosemide 40 mg tablet (Lasix) 60 mg PO BID #270 tabs 03/26/21 [Rx Last Taken 11/08/21] escitalopram oxalate 20 mg tablet 20 mg PO DAILY DEPRESSION 11/08/21 [History Last Taken 11/08/21] magnesium oxide 400 mg PO BID SUPPLEMENT 11/08/21 [History Last Taken 11/08/21] ydbonjwq-twv-lhnwk acid 300 mcg-lycopene 600 mcg-lutein 300 mcg tablet (Centrum Silver Men) 1 tab PO DAILY 11/08/21 [History Last Taken 11/07/21] ascorbic acid (vitamin C) 500 mg tablet 500 mg PO BIDCM #0 tabs 11/12/21 [Rx Last Taken Unknown] ferrous sulfate 325 mg (65 mg iron) tablet (FeroSul) 325 mg PO LUNCH #0 tabs 11/12/21 [Rx Last Taken Unknown] pantoprazole 40 mg tablet,delayed release 40 mg PO DAILY #30 tabs 11/12/21 [Rx Last Taken Unknown] potassium chloride 20 mEq tablet,extended release(part/cryst) (Klor-Con M) 20 meq PO BIDCM #0 tabs 11/12/21 [Rx Last Taken Unknown] omeprazole 20 mg capsule,delayed release 20 mg PO DAILY 11/22/21 [History Last Taken Unknown] Allergy/AdvReac Type Severity Reaction Status Date / Time No Known Allergies Allergy Verified 11/22/21 11:22 Family History Mother Cancer Surgical History H/O coronary artery bypass surgery (03/01/18) H/O inguinal hernia repair H/O rectal polypectomy History of coronary artery stent placement (04/29/04) History of herniorrhaphy S/P pericardiocentesis (02/2018) Social History Smoking Status: Never smoker ROS ROS ED ROS Narrative Recent GI bleed. Review of Systems ROS Unobtainable: Denies due to encephalopathy Constitutional Constitutional ED: Denies chills or fever(s) Eyes Eyes: Denies blurry vision ENT ENT ED: Denies ear pain Cardiovascular Cardiovascular: Denies chest pain Respiratory/Chest Respiratory/Chest: Denies cough Gastrointestinal Gastrointestinal: Denies abdominal pain, diarrhea, melena, nausea or vomiting Genitourinary Genitourinary ED: Denies dysuria Musculoskeletal Musculoskeletal: Denies arthralgias Integumentary Denies abscess Neurologic Neurologic: Denies headache(s) Psychiatric Psychiatric: Denies anxiety Endocrine Endocrinology: Denies cold intolerance Hematologic/Lymphatic Hematologic/Lymphatic: Reports anemia Allergic/Immunologic Allergic/Immunologic ED: Denies mouth swelling EXAM Physical Exam Narrative Exam Narrative: 81-year-old male no acute distress vital signs stable afebrile. Pulse ox 98% and have listed on room air no hypoxia. I will check that with nursing staff. H EENT exam pupils are reactive light his motions are intact. No areas hematomas. Scalp is nontender. No facial trauma. Neck nontender. Lungs are clear. Heart regular rhythm no murmur rate about 80. Chest wall nontender. Moving all 4 extremities. No tenderness. No bony deformity. 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 Dorsi plantarflexion intact. Neurologically is awake. He answers questions. He follows commands. He does know that he is in the hospital. Signs of bed side and states this is in his normal mental status. Const Vital Signs: 11/22/21 11:22 11/22/21 13:37 Temperature 97.5 F L Temperature Source Oral Pulse Rate 78 76 Respiratory Rate 16 12 Blood Pressure 137/69 H 112/59 L Blood Pressure Mean 91 76 Pulse Ox 98 94 Oxygen Delivery Method Room Air Room Air Positive well nourished, well developed and obese; Negative for cachectic, contractures or unkempt General Appearance ED: well developed; Negative for unkempt, cachectic or contractures Nutritional Appearance: obese; Negative for cachectic HEENT Reports moist mucous membranes Negative for trauma or tenderness Eyes PERRL and EOMs intact bilaterally General Eye ED: Yes pale conjunctiva; Negative for scleral icterus Neck no lymphadenopathy and supple General: Negative for tenderness Lymph Lymphatic: Negative for other Chest Wall inspection of chest normal and palpation of chest normal Resp normal respiratory effort and clear to auscultation bilaterally Effort and Inspection: Negative for retractions Auscultation: Negative for rales, rhonchi or wheezes Cardio regular rate, regular rhythm, S1 normal heart sound, S2 normal heart sound and no murmurs Palpation: Negative for palpable S3 Rate: Negative for bradycardia Rhythm: Negative for abnormal rhythm GI normal to inspection, nondistended, normoactive bowel sounds, non-tender and non-distended Inspection: Negative for abdominal distention Auscultation: normoactive bowel sounds Palpation: soft; Negative for tender, guarding, splenomegaly or mass Back/Spine no CVA tenderness General Back: Negative for CVA tenderness Cervical Spine: Negative for cervical spine tenderness Thoracic Spine / Upper Back: Negative for thoracic spinal tenderness Lumbar Spine / Lower Back: Negative for lumbar spinal tenderness Extremity normal to inspection General Extremety ED: Negative for edema or tenderness General Extremity: Negative for edema Neuro Neuro Narrative: Oriented to person place. Sensorium / Orientation: alert and orientation impaired; Negative for lethargic or stuporous Motor Exam: strength 5/5 throughout Psych mental status grossly normal Appearance: Negative for unkempt Skin no rashes or lesions noted and no wounds Rashes: No rashes noted Trauma: Negative for abrasion Wounds: Negative for wounds noted MDM MDM MDM Narrative Medical decision making narrative: 81-year-old male from a long term was seen the last 12 hours had a completely negative work-up done at that time including imaging with a CT of his brain and spine and a chest x-ray. Also labs and urinalysis. Brought in for mental status change. His exam is benign. Repeat exam unchanged at 2 PM. I discussed with his son who I think was unaware the patient had been evaluated earlier today. From the fall that he took in the long term. His work-up earlier this morning and when I did today are no significant change and do not show any specific cause for any mental status change. I will speak with the long term and he will be discharged back. Lab Data Attestation: I reviewed the patient's lab results. Lab results narrative: CBC shows a white count of 4. H&H 9.2 with 29. Electrolytes show potassium at 3.4. Gap is 7. Normal BUN and creatinine. Glucose of 102. Chest x-ray unremarkable. I did review the prior labs from earlier today and the prior CAT scan and chest x-ray. Labs: Laboratory Results - last 24 hr 11/22/21 11/22/21 11:24 11:24 WBC 4.5 RBC 2.85 L Hgb 9.2 L Hct 29.4 L MCV 103.2 H MCH 32.3 H MCHC 31.3 L RDW Std Deviation 70.4 H RDW Coeff of Delfina 18.8 H Plt Count 263 MPV 8.6 Immature Gran % (Auto) 2.000 H Neut % (Auto) 54.0 Lymph % (Auto) 29.3 Dunn % (Auto) 11.6 H Eos % (Auto) 2.0 Baso % (Auto) 1.1 H Absolute Neuts (auto) 2.4 Absolute Lymphs (auto) 1.32 Nucleated RBC % 0 Platelet Estimate ADEQUATE RBC Morphology NORM C+C Sodium 141 Potassium 3.4 L Chloride 103 Carbon Dioxide 31.0 Anion Gap 7 BUN 16 Creatinine 0.90 Estim Creat Clear Calc 47.54 Est GFR (MDRD) Af Amer 105 Est GFR (MDRD) Non-Af 87 BUN/Creatinine Ratio 17.9 Glucose 102 Calcium 8.7 Radiography Chest X-Ray - ED: 1 View, Read by ED Physician, Read by Radiologist, Heart, Lungs, Mediastinum, Bony Structures, No Acute Disease and Chronic Changes Diagnostic Testing: Clinical Impression(s) from Imaging Studies Chest X-Ray 11/22/21 12:09 IMPRESSION: Stable increased markings at the left lung base with blunting of the left costophrenic angle suggestive of atelectasis. Electronically Signed: Naresh Khanna MD at 12:36 EDT , Chest x-ray, portable, single view interpreted by self and radiologist shows no acute abnormality. Rhythm Strip Rhythm Strip: Sinus Rhythm Rate: 77 Ectopy: None EKG Initial EKG: Attestation: I personally reviewed and interpreted this EKG as follows: Interpretation: Sinus Rhythm and No Acute Injury Pattern Comments: Normal sinus rhythm rate of 77. Right bundle asad block. Left anterior fascicular block. No acute abnormality. Discharge Plan Triage Chief Complaint: Alt LOC ED Provider: Wing Collins Dx/Rx/DC Orders Clinical Impression: Acute alteration in mental status, Fall, History of diabetes mellitus Instructions: ED ALOC Prescriptions: No Action nitroglycerin 0.4 mg tablet, sublingual 0.4 mg SUBLINGUAL Q5-15M PRN (Reason: chest pain) Qty: 25 6RF Rx Instructions: until response; do not exceed 3 doses per episode metoprolol tartrate 25 mg tablet 25 mg PO BID losartan 50 mg tablet 50 mg PO DAILY pravastatin 40 mg tablet 40 mg PO QHS tamsulosin 0.4 mg capsule 0.4 mg PO QHS metformin 500 mg tablet extended release 24 hr 500 mg PO QHS cholecalciferol (vitamin D3) 1,250 mcg (50,000 unit) capsule 50,000 unit PO FR Label Comments: TAKE 1 CAPSULE BY MOUTH ONCE A WEEK albuterol sulfate [ProAir HFA] 90 mcg/actuation HFA aerosol inhaler 2 puff inhalation Q6H PRN (Reason: wheezing) bupropion HCl 300 MG tablet extended release 24 hr 300 mg PO DAILY fish,bora,flax oils-om3,6,[id number] 400 MG capsule 800 mg PO BID cyanocobalamin (vitamin B-12) 2,500 MCG tablet 2,500 mcg PO DAILY aspirin 81 mg tablet,chewable 81 mg PO DAILY@0800 Hold Instructions: Resume on 11/19/21. escitalopram oxalate 20 mg tablet 20 mg PO DAILY Centrum Silver Men 300-600-300 mcg Tablet 1 tab PO DAILY magnesium oxide 400 mg magnesium Tablet 400 mg PO BID potassium chloride [Klor-Con M20] 20 mEq Tablet,Er Particles/Crystals 20 meq PO BIDCM Qty: 0 0RF ascorbic acid (vitamin C) 500 mg Tablet 500 mg PO BIDCM Qty: 0 0RF ferrous sulfate [FeroSul] 325 mg (65 mg iron) Tablet 325 mg PO LUNCH Qty: 0 0RF pantoprazole 40 mg tablet,delayed release (DR/EC) 40 mg PO DAILY Qty: 30 0RF omeprazole 20 mg Capsule,Delayed Release(Dr/Ec) 20 mg PO DAILY furosemide [Lasix] 40 mg tablet 60 mg PO BID Qty: 270 3RF Primary Care Provider: All Montero Referrals: All Montero MD [Primary Care Provider] - 3-5 Days if not improving Activity Restrictions/Additional Instructions: Plenty of fluids and rest. He needs to be reevaluated either by his primary care physician or the medical assistant secretary of the long term to ensure he is improving. We do not have a specific cause for his mental status change. There is no signs of infection. His CAT scans and x-rays and labs are all unremarkable. This may or may not be related to medications he may have to adjust. Disposition Disposition: Home, Self Care
--- NOTE | 2021-11-22 12:09 | RAD_ITS ---
STUDY: X-RAY CHEST REASON FOR EXAM: Male, 81 years old. Ms change . Increasing confusion. TECHNIQUE: Single AP portable view of the chest. COMPARISON: Comparison is made with prior study dated 11/22/2021 at 12:48 AM. FINDINGS: EKG electrodes are seen. Stable increased markings at the left lung base with blunting of the left costophrenic angle. Sternal cerclage wires and vascular clips are present from a prior sternotomy and coronary artery bypass graft procedure (CABG). Normal mediastinum and aniceto. Normal visualized pulmonary arteries. Normal visualized aortic arch and descending thoracic aorta. There are diffuse degenerative changes of the visualized thoracic spine. Normal visualized ribs, clavicles, and shoulders. There is no demonstrated abnormality of the visualized soft tissue structures of the upper abdomen. RAD/Chest 1 View (Portable) IMPRESSION: Stable increased markings at the left lung base with blunting of the left costophrenic angle suggestive of atelectasis. Electronically Signed: Naresh Khanna MD at 12:36 EDT ,
[2021-11-22 12:11] LABS: Absolute Lymphocyte Count 1.32 X10^3/uL (0.83-4.51); Absolute Neutrophil Count 2.4 X10^3/uL (2.0-7.7); Basophil# 0.05 X10^3/uL; Basophil% 1.1 % (0-1); Eosinophil# 0.09 X10^3/uL; Hematocrit 29.4 % (40-54); Hemoglobin 9.2 g/dL (13.0-16.5); Lymphocyte # 1.32 X10^3/ul (0.83-4.51); Lymphocyte % 29.3 % (19-41); Mean Corp Hgb Conc 31.3 g/dL (32-36); Mean Corpuscular Hgb 32.3 pg (27.0-32.0); Mean Corpuscular Volume 103.2 fL (80-94); Mean Platelet Vol. 8.6 fl (6.2-12.0); Monocyte# 0.52 X10^3/uL; Monocyte% 11.6 % (0-10); NRBC Flagged by Analyzer 0 % (0-5); Neutrophil # 2.43 X10^3/uL (2.7-7.7); POSITIVE MORPHOLOGY YES; Platelet Count 263 K/mm3 (150-450); RBC Distribution Width CV 18.8 % (11.6-14.6); RBC Distribution Width SD 70.4 fl (35.1-43.9); Red Blood Count 2.85 M/mm3 (4.6-6.2); White Blood Count 4.5 K/mm3 (4.4-11.0)
[2021-11-22 12:13] LABS: Differential Indicated SCAN CRITERIA MET
[2021-11-22 12:25] LABS: Anion Gap 7 (5-15); BUN 16 mg/dL (7-18); BUN/Creat Ratio 17.9 RATIO (10-20); Calcium,Total 8.7 mg/dL (8.5-10.1); Chloride 103 mmol/L (98-107); EST Glomerular Filtration Rate 87 mL/min (>60); Est Glom Filt Rate - Afr Amer 105 mL/min (>60); Estimated Creatinine Clearance 47.54 ml/min; Glucose 102 mg/dL (74-106); Potassium 3.4 mmol/L (3.5-5.1); Sodium Level 141 mmol/L (136-145)
[2021-11-22 12:40] LABS: Platelet Estimate ADEQUATE (ADEQ); Red Cell Morphology NORM C+C NORMAL (NORM C&C)
[2021-11-22 13:37] VITALS: BP 112/59; PULSE 76; RESP 12; O2SAT 94
[2021-11-22 14:00] VITALS: BP 139/69; PULSE 72; RESP 16; O2SAT 96
--- NOTE | 2021-11-22 14:29 | NURSING ---
CALLED [facility], ETA IS [id number]
[2021-11-22 15:00] VITALS: BP 124/63; PULSE 78; RESP 14; O2SAT 97
[2021-11-22 16:00] VITALS: PULSE 74; RESP 14; O2SAT 97
== END 2021-11-22 16:54 | disposition home or self-care (01) ==
PROVIDERS: Emergency Provider Emergency Medicine; PCP Family Medicine; Visit Provider Emergency Medicine
DX: R41.82 Altered mental status, unspecified (principal); E11.9 Type 2 diabetes mellitus without complications; E78.5 Hyperlipidemia, unspecified; I10 Essential (primary) hypertension; I25.10 Atherosclerotic heart disease of native coronary artery without angina pectoris; Z95.1 Presence of aortocoronary bypass graft; I25.2 Old myocardial infarction; E66.9 Obesity, unspecified
CPT/HCPCS: 99285; 71045; 80048; 85025; 93005; A4216

== ENCOUNTER → 2022-01-08 | Outpatient (CLI) | payer MEDICARE, SELFPAY ==
[2022-01-08 10:20] LABS: Absolute Lymphocyte Count 1.67 X10^3/uL (0.83-4.51); Absolute Neutrophil Count 3.9 X10^3/uL (2.0-7.7); Basophil# 0.04 X10^3/uL; Basophil% 0.6 % (0-1); Eosinophils% 1.6 % (0-5); Hematocrit 40.4 % (40-54); Hemoglobin 12.6 g/dL (13.0-16.5); Lymphocyte # 1.67 X10^3/ul (0.83-4.51); Lymphocyte % 26.4 % (19-41); Mean Corp Hgb Conc 31.2 g/dL (32-36); Mean Corpuscular Hgb 31.5 pg (27.0-32.0); Mean Platelet Vol. 9.3 fl (6.2-12.0); Monocyte# 0.52 X10^3/uL; Monocyte% 8.2 % (0-10); NRBC Flagged by Analyzer 0 % (0-5); Neutrophil # 3.92 X10^3/uL (2.7-7.7); Neutrophil % 62.1 % (47-70); Platelet Count 287 K/mm3 (150-450); RBC Distribution Width CV 16.5 % (11.6-14.6); RBC Distribution Width SD 61.3 fl (35.1-43.9); RET-HE 32.6 pg (30-35); Reticulocyte Count 2.46 % (0.5-1.5); White Blood Count 6.3 K/mm3 (4.4-11.0)
[2022-01-08 10:35] LABS: Vitamin B12 > 2000 pg/mL (211-911)
[2022-01-08 10:42] LABS: Anion Gap 9 (5-15); BUN 21 mg/dL (7-18); BUN/Creat Ratio 15.8 RATIO (10-20); Calcium,Total 9.3 mg/dL (8.5-10.1); Chloride 102 mmol/L (98-107); Creatinine, Serum 1.33 mg/dL (0.70-1.30); EST Glomerular Filtration Rate 55 mL/min (>60); Est Glom Filt Rate - Afr Amer 66 mL/min (>60); Ferritin 162 ng/mL (26-388); Glucose 112 mg/dL (74-106); Iron 55 ug/dL (65-175); Iron Binding Capacity,Total 252 ug/dL (250-450); PERCENT IRON SATURATION 21.8 % (15.0-55.0); Potassium 3.7 mmol/L (3.5-5.1); Sodium Level 140 mmol/L (136-145)
== END | disposition home or self-care (01) ==
LOC: MFPLAB 09:01
PROVIDERS: PCP Family Medicine; Referring Provider Family Medicine; Visit Provider Family Medicine
DX: K92.2 Gastrointestinal hemorrhage, unspecified (principal); Z76.89 Persons encountering health services in other specified circumstances
CPT/HCPCS: 36415; 80048; 82607; 82728; 83540; 83550; 85025; 85045

== ENCOUNTER → 2022-03-17 | Outpatient (CLI) | payer MEDICARE, SELFPAY ==
[2022-03-17 17:44] LABS: Absolute Lymphocyte Count 1.77 X10^3/uL (0.83-4.51); Absolute Neutrophil Count 13.3 X10^3/uL (2.0-7.7); Basophil# 0.07 X10^3/uL; Basophil% 0.4 % (0-1); Eosinophil# 0.02 X10^3/uL; Eosinophils% 0.1 % (0-5); Hematocrit 39.8 % (40-54); Hemoglobin 11.8 g/dL (13.0-16.5); Lymphocyte # 1.77 X10^3/ul (0.83-4.51); Lymphocyte % 10.8 % (19-41); Mean Corp Hgb Conc 29.6 g/dL (32-36); Mean Corpuscular Hgb 29.6 pg (27.0-32.0); Monocyte# 0.92 X10^3/uL; Monocyte% 5.6 % (0-10); NRBC Flagged by Analyzer 0 % (0-5); Neutrophil # 13.28 X10^3/uL (2.7-7.7); Neutrophil % 80.8 % (47-70); Platelet Count 571 K/mm3 (150-450); RBC Distribution Width CV 16.2 % (11.6-14.6); RBC Distribution Width SD 59.9 fl (35.1-43.9); Red Blood Count 3.98 M/mm3 (4.6-6.2); White Blood Count 16.4 K/mm3 (4.4-11.0)
[2022-03-17 17:55] LABS: Erythrocyte Sedimentation Rate 100 mm/hr (0-20)
[2022-03-17 18:12] LABS: ALB/GLOB Ratio 0.4 RATIO (0.9-2.4); AST(SGOT) 33 U/L (15-37); Alanine Aminotransfer ALT/SGPT 52 U/L (16-61); Albumin, Serum 1.9 g/dL (3.2-5.0); Alkaline Phosphatase 212 U/L (45-117); Anion Gap 8 (5-15); BUN 60 mg/dL (7-18); BUN/Creat Ratio 21.8 RATIO (10-20); Calcium,Total 9.3 mg/dL (8.5-10.1); Chloride 113 mmol/L (98-107); Creatinine, Serum 2.75 mg/dL (0.70-1.30); EST Glomerular Filtration Rate 24 mL/min (>60); Est Glom Filt Rate - Afr Amer 29 mL/min (>60); Ferritin 692 ng/mL (26-388); Globulin 4.8 g/dL (2.2-4.2); Glucose 107 mg/dL (74-106); Iron 22 ug/dL (65-175); Potassium 4.7 mmol/L (3.5-5.1); Protein, Total 6.7 g/dL (6.4-8.2); Sodium Level 143 mmol/L (136-145); Thyroid Stim Hormone (TSH) 2.32 uIU/mL (0.358-3.74)
[2022-03-17 18:22] LABS: Vitamin B12 > 2000 pg/mL (211-911)
== END | disposition home or self-care (01) ==
LOC: MFPLAB 15:42
PROVIDERS: PCP Family Medicine; Visit Provider Family Medicine
DX: R63.4 Abnormal weight loss (principal); E53.8 Deficiency of other specified B group vitamins; K92.2 Gastrointestinal hemorrhage, unspecified
CPT/HCPCS: 36415; 80053; 82607; 82728; 83540; 84134; 84443; 85025; 85652

== ENCOUNTER 2022-03-18 08:55 | Inpatient (IN) | payer MEDICARE, SELFPAY ==
[2022-03-18 08:56] VITALS: BP 109/71; PULSE 59; RESP 17; TEMP 36.2; O2SAT 92; BMI 29.0
--- NOTE | 2022-03-18 09:26 | CT_ITS ---
STUDY: CT ABDOMEN AND PELVIS WITHOUT CONTRAST REASON FOR EXAM: Male, 81 years old. ARF. History of aortic dissection. RADIATION DOSAGE (If Supplied By Facility): CTDIvol = ( 21.10 ) mGy, DLP = ( 1080.62 ) mGycm TECHNIQUE: Transaxial images were obtained from the dome of the diaphragm to the symphysis pubis without oral contrast, and without intravenous contrast. Sagittal and coronal images were reconstructed. Individualized dose optimization techniques were used for this CT. COMPARISON: Comparison is made with prior study dated 11/09/2021. FINDINGS: Small bilateral pleural effusions right slightly greater than left with the bibasilar atelectasis. The visualized portions of the heart are within normal limits. Normal liver. There are multiple gallstones. Normal spleen. Normal pancreas. Normal bilateral adrenal glands. Mild degree of right hydronephrosis. There is a mild degree of left hydronephrosis with perinephric and periureteric stranding. Normal visualized stomach. Normal small intestine. Normal colon. The appendix is visualized and appears normal. There is diffuse atherosclerotic calcification of the abdominal aorta and its major visceral branches, without a demonstrated aneurysm. Normal inferior vena cava. Normal retroperitoneum. There is a markedly distended urinary bladder. There is a 1.5 cm calculus at the base of the bladder. There is enlargement of the prostate gland. This causes indentation of the bladder base. Normal abdominal wall. There are diffuse degenerative changes of the visualized lumbar spine. Stable compression fracture of the L2 vertebrae. CT/Abdomen/Pelvis without Cont IMPRESSION: Moderate degree of bone left hydronephrosis with left perinephric and periureteric stranding. Distended urinary bladder. Stable 1.5 cm calculus at the base of the bladder. Multiple gallstones. Electronically Signed: Naresh Khanna MD at 10:19 EDT ,
--- NOTE | 2022-03-18 09:27 | EX.ED.DYSGE1 ---
HPI History of Present Illness Chief Complaint: Abn Labs Informant: patient and family Narrative Narrative: Patient presents today for evaluation of what he believes is low blood counts. Son states they went to the doctor yesterday because the patient's not been wanting to eat much over the past couple weeks. Blood work was obtained. It appears that the blood work indicates an elevated white count at 16.4 but his hemoglobin is 11.8. It does appear he has acute renal failure with a BUN of 60 and a creatinine of 2.75. Prior values from December were 211.33. Patient denies any complaint. He states he just has no appetite and does not want to eat. He is still drinking and making urine. 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) Pericardial effusion (02/2018) Pneumothorax Postoperative atrial fibrillation Right bundle branch block Sleep apnea Syncope and collapse Type 2 diabetes mellitus Home Medications metoprolol tartrate 25 mg tablet 25 mg PO BID 02/23/18 [History Last Taken 11/08/21] pravastatin 40 mg tablet 40 mg PO QHS 02/23/18 [History Last Taken 11/07/21] tamsulosin 0.4 mg capsule 0.4 mg PO QHS 02/23/18 [History Last Taken 11/07/21] bupropion HCl 300 mg 24 hr tablet, extended release 300 mg PO DAILY 02/24/18 [History Last Taken 11/08/21] cyanocobalamin (vitamin B-12) 2,500 mcg tablet 2,500 mcg PO DAILY 02/24/18 [History Last Taken 11/08/21] fish, borage, flaxseed oils-omega 3,6,9 cb #1 400 mg-400 mg-400 mg cap 800 mg PO BID 02/24/18 [History Last Taken 11/08/21] nitroglycerin 0.4 mg sublingual tablet 0.4 mg sublingual Q5-15M PRN chest pain #25 tabs 02/24/18 [Rx Last Taken 02/24/18 07:30] aspirin 81 mg chewable tablet 81 mg PO DAILY@0800 10/06/19 [History Last Taken 11/08/21] cholecalciferol (vitamin D3) 1,250 mcg (50,000 unit) capsule 50,000 unit PO FR 10/06/19 [History Last Taken 11/02/21] albuterol sulfate 90 mcg/actuation aerosol inhaler (ProAir HFA) 2 puff inhalation Q6H PRN wheezing 02/19/21 [History Last Taken Unknown] escitalopram oxalate 20 mg tablet 20 mg PO DAILY DEPRESSION 11/08/21 [History Last Taken 11/08/21] ebfpzojk-umk-ltkku acid 300 mcg-lycopene 600 mcg-lutein 300 mcg tablet (Centrum Silver Men) 1 tab PO DAILY 11/08/21 [History Last Taken 11/07/21] ascorbic acid (vitamin C) 500 mg tablet 500 mg PO BIDCM #0 tabs 11/12/21 [Rx Last Taken Unknown] ferrous sulfate 325 mg (65 mg iron) tablet (FeroSul) 325 mg PO LUNCH #0 tabs 11/12/21 [Rx Last Taken Unknown] colestipol 1 gram tablet 1 g PO BID #60 tabs 12/31/21 [Rx Last Taken Unknown] furosemide 40 mg tablet (Lasix) 40 mg PO DAILY 03/04/22 [History Last Taken Unknown] mirtzapine 7.5 mg PO DAILY 03/04/22 [History Last Taken Unknown] potassium chloride 20 mEq tablet,extended release(part/cryst) (Klor-Con M) 10 meq PO BIDCM 03/04/22 [History Last Taken Unknown] docusate sodium 100 mg capsule 100 mg PO DAILY 03/17/22 [History Last Taken Unknown] vitamin A 2,400 mcg capsule 2,400 mcg PO DAILY 03/17/22 [History Last Taken Unknown] zinc 50 mg tablet 50 mg PO DAILY 03/17/22 [History Last Taken Unknown] Allergy/AdvReac Type Severity Reaction Status Date / Time No Known Allergies Allergy Verified 03/18/22 08:56 Family History Mother Cancer Surgical History H/O coronary artery bypass surgery (03/01/18) H/O inguinal hernia repair H/O rectal polypectomy History of coronary artery stent placement (04/29/04) History of herniorrhaphy S/P pericardiocentesis (02/2018) Social History Smoking Status: Never smoker ROS ROS ED ROS Narrative Poor appetite and decreased p.o. intake. Constitutional Constitutional ED: Denies chills or fever(s) Eyes Eyes: Denies change in vision or discharge from eye(s) ENT ENT ED: Denies discharge from eye(s), rhinorrhea or sore throat Cardiovascular Cardiovascular: Denies chest pain or palpitations Respiratory/Chest Respiratory/Chest: Denies cough or dyspnea Gastrointestinal Gastrointestinal: Denies abdominal pain, diarrhea, nausea or vomiting Genitourinary Genitourinary ED: Denies difficulty urinating or dysuria Musculoskeletal Musculoskeletal: Denies back pain or extremity pain Integumentary Denies Abrasions or rash Neurologic Neurologic: Reports weakness; Denies headache(s) Allergic/Immunologic Allergic/Immunologic ED: Denies lip swelling or urticaria EXAM Physical Exam Const Vital Signs: 03/18/22 08:56 03/18/22 09:16 Temperature 97.1 F L Temperature Source Temporal Pulse Rate 59 L Respiratory Rate 17 Respiratory Effort Normal Non-Labored Blood Pressure 109/71 Blood Pressure Mean 83 Pulse Ox 92 Oxygen Delivery Method Room Air Positive well nourished and well developed General Appearance ED: well developed HEENT Reports normocephalic and head/scalp atraumatic Eyes PERRL and EOMs intact bilaterally Neck supple Chest Wall inspection of chest normal and palpation of chest normal Resp normal respiratory effort and clear to auscultation bilaterally Cardio regular rate and regular rhythm GI normal to inspection, nondistended, normoactive bowel sounds Palpation: soft Extremity normal to inspection Neuro oriented x3 and no sensory deficits noted Neuro Narrative: No focal neurologic deficits. Sensorium / Orientation: alert Motor Exam: strength 5/5 throughout Psych mental status grossly normal Skin no rashes or lesions noted MDM MDM MDM Narrative Medical decision making narrative: Patient given IV fluids. Lab work and urinalysis repeated. CT flank ordered given the patient's acute renal failure. Lab Data Attestation: I reviewed the patient's lab results. Labs: Laboratory Results - last 24 hr 03/18/22 03/18/22 03/18/22 09:32 09:32 10:40 WBC 14.4 H RBC 3.76 L Hgb 11.1 L Hct 36.6 L MCV 97.3 H MCH 29.5 MCHC 30.3 L RDW Std Deviation 57.9 H RDW Coeff of Delfina 16.1 H Plt Count 476 H MPV 8.5 Immature Gran % (Auto) 2.800 H Neut % (Auto) 82.5 H Lymph % (Auto) 8.1 L [place] % (Auto) 6.1 Eos % (Auto) 0.1 Baso % (Auto) 0.4 Absolute Neuts (auto) 11.9 H Absolute Lymphs (auto) 1.17 Nucleated RBC % 0 Sodium 143 Potassium 4.3 Chloride 113 H Carbon Dioxide 24.0 Anion Gap 6 BUN 58 H Creatinine 2.94 H Estim Creat Clear Calc 22.27 Est GFR (MDRD) Af Amer 27 L Est GFR (MDRD) Non-Af 22 L BUN/Creatinine Ratio 19.7 Glucose 132 H Calcium 9.4 Urine Color Yellow Urine Clarity Clear Urine pH 5.0 Ur Specific [place] 1.010 Urine Protein Negative Urine Glucose (UA) Normal Urine Ketones Negative Urine Occult Blood 50 H Urine Nitrite Negative Urine Bilirubin Negative Urine Urobilinogen Normal Ur Leukocyte Esterase 500 H Urine RBC 0-5 SEEN Urine WBC 25-50 SEEN Ur Squamous Epith Cells 0 SEEN Urine Bacteria 0 SEEN Urine Mucus 0 SEEN Radiography Diagnostic Testing: Clinical Impression(s) from Imaging Studies Abdomen/Pelvis CT 03/18/22 09:26 IMPRESSION: Moderate degree of bone left hydronephrosis with left perinephric and periureteric stranding. Distended urinary bladder. Stable 1.5 cm calculus at the base of the bladder. Multiple gallstones. Electronically Signed: Naresh Khanna MD at 10:19 EDT , Treatment and Re-Evaluation Narrative: CBC reveals continued leukocytosis with a white count of 14.4, although slightly improved from yesterday. Hemoglobin is 11.1. BUN and creatinine are 58 and 2.94. Urinalysis shows 25-50 white cells but 0 bacteria and no nitrites. CT flank reveals moderate left hydronephrosis and left perinephric and periureteral stranding. There is a stable calculus at the base of the bladder. At this time patient will be discussed with hospitalist for admission. I will discuss with nurse whether the patient urinated after the CT scan was obtained. If not, a Stewart catheter will be placed to ensure appropriate emptying of bladder. Discharge Plan Triage Chief Complaint: Abn Labs ED Provider: Yesy Hutchinson Dx/Rx/DC Orders Clinical Impression: Acute renal failure Prescriptions: No Action nitroglycerin 0.4 mg tablet, sublingual 0.4 mg SUBLINGUAL Q5-15M PRN (Reason: chest pain) Qty: 25 6RF Rx Instructions: until response; do not exceed 3 doses per episode metoprolol tartrate 25 mg tablet 25 mg PO BID pravastatin 40 mg tablet 40 mg PO QHS tamsulosin 0.4 mg capsule 0.4 mg PO QHS cholecalciferol (vitamin D3) 1,250 mcg (50,000 unit) capsule 50,000 unit PO FR Label Comments: TAKE 1 CAPSULE BY MOUTH ONCE A WEEK albuterol sulfate [ProAir HFA] 90 mcg/actuation HFA aerosol inhaler 2 puff inhalation Q6H PRN (Reason: wheezing) colestipol 1 gram tablet 1 g PO BID Qty: 60 2RF potassium chloride [Klor-Con M20] 20 mEq tablet,ER particles/crystals 10 meq PO BIDCM furosemide [Lasix] 40 mg tablet 40 mg PO DAILY mirtzapine 7.5 mg PO DAILY bupropion HCl 300 MG tablet extended release 24 hr 300 mg PO DAILY fish,bora,flax oils-om3,6,[id number] 400 MG capsule 800 mg PO BID cyanocobalamin (vitamin B-12) 2,500 MCG tablet 2,500 mcg PO DAILY aspirin 81 mg tablet,chewable 81 mg PO DAILY@0800 Hold Instructions: Resume on 11/19/21. vitamin A 2,400 mcg Capsule 2,400 mcg PO DAILY docusate sodium 100 mg Capsule 100 mg PO DAILY zinc 50 mg Tablet 50 mg PO DAILY escitalopram oxalate 20 mg tablet 20 mg PO DAILY Centrum Silver Men 300-600-300 mcg Tablet 1 tab PO DAILY ascorbic acid (vitamin C) 500 mg Tablet 500 mg PO BIDCM Qty: 0 0RF ferrous sulfate [FeroSul] 325 mg (65 mg iron) Tablet 325 mg PO LUNCH Qty: 0 0RF Primary Care Provider: All Montero Referrals: All Montero MD [Primary Care Provider] - Disposition Disposition: Acute Care Hospital [facility]
[2022-03-18 09:42] LABS: Absolute Lymphocyte Count 1.17 X10^3/uL (0.83-4.51); Absolute Neutrophil Count 11.9 X10^3/uL (2.0-7.7); Basophil# 0.06 X10^3/uL; Basophil% 0.4 % (0-1); Eosinophil# 0.02 X10^3/uL; Eosinophils% 0.1 % (0-5); Hematocrit 36.6 % (40-54); Hemoglobin 11.1 g/dL (13.0-16.5); Lymphocyte # 1.17 X10^3/ul (0.83-4.51); Lymphocyte % 8.1 % (19-41); Mean Corp Hgb Conc 30.3 g/dL (32-36); Mean Corpuscular Hgb 29.5 pg (27.0-32.0); Mean Corpuscular Volume 97.3 fL (80-94); Mean Platelet Vol. 8.5 fl (6.2-12.0); Monocyte# 0.88 X10^3/uL; Monocyte% 6.1 % (0-10); NRBC Flagged by Analyzer 0 % (0-5); Neutrophil # 11.89 X10^3/uL (2.7-7.7); Neutrophil % 82.5 % (47-70); Platelet Count 476 K/mm3 (150-450); RBC Distribution Width CV 16.1 % (11.6-14.6); RBC Distribution Width SD 57.9 fl (35.1-43.9); Red Blood Count 3.76 M/mm3 (4.6-6.2); White Blood Count 14.4 K/mm3 (4.4-11.0)
[2022-03-18 09:54] LABS: Anion Gap 6 (5-15); BUN 58 mg/dL (7-18); BUN/Creat Ratio 19.7 RATIO (10-20); Calcium,Total 9.4 mg/dL (8.5-10.1); Chloride 113 mmol/L (98-107); Creatinine, Serum 2.94 mg/dL (0.70-1.30); EST Glomerular Filtration Rate 22 mL/min (>60); Est Glom Filt Rate - Afr Amer 27 mL/min (>60); Estimated Creatinine Clearance 22.27 ml/min; Glucose 132 mg/dL (74-106); Potassium 4.3 mmol/L (3.5-5.1); Sodium Level 143 mmol/L (136-145)
[2022-03-18] MEDS: 0.9% Normal Saline 1,000 ML 150 ML IV (10:30)
[2022-03-18 10:50] LABS: Bacteria 0 SEEN /hpf (None Seen); Mucous, Urine 0 SEEN /hpf (<or=2+); Squamous Epithelial Cells - UA 0 SEEN /hpf (0-5)
[2022-03-18 10:57] LABS: Color, Urine Yellow (Yellow); Glucose, Dipstick Normal (Normal); Ketone-Dipstick Negative (Negative); Leukocyte Esterase-Dipstick 500 /ul (Negative); Nitrite-Dipstick Negative (Negative); Occult Blood-Urine 50 /ul (Negative); Protein-Dipstick Negative (Negative); Urine Bilirubin Dipstick Negative (Negative); Urine Clarity Clear (Clear); Urine Urobilinogen Normal (Normal)
[2022-03-18 11:09] LABS: Red Blood Cells-Urine 0-5 SEEN /hpf (0-5); White Blood Cells 25-50 SEEN /hpf (0-5)
[2022-03-18 12:13] VITALS: BP 115/72; PULSE 62; RESP 16; O2SAT 96
[2022-03-18 13:43] VITALS: BP 115/72; PULSE 62; RESP 16; TEMP 36.6; O2SAT 96
[2022-03-18 14:20] VITALS: BMI 27.3
[2022-03-18 14:30] VITALS: BP 127/62; PULSE 60; RESP 14; TEMP 36.9; O2SAT 98
[2022-03-18] MEDS: 0.9% Normal Saline 1,000 ML 100 ML IV (14:41)
[2022-03-18] MEDS: Ascorbic Acid 500 MG Tablet PO (17:05)
[2022-03-18] MEDS: Tamsulosin HCl 0.4 MG Capsule 0.8 MG PO (17:05)
[2022-03-18] MEDS: Ensure Plus High Protein 120 ML LIQUID PO ×2 (17:08→22:41)
--- NOTE | 2022-03-18 18:35 | PCM.HP.STD ---
HPI - General General Date of Admission: 03/18/22 Date of Service: 03/18/22 Chief Complaint: Abnormal outpatient labs HPI Narrative NYASIA MOSQUEDA, is a 81 M who presents to the emergency room at [facility] after being directed there for evaluation of abnormal labs obtained as an outpatient yesterday. Patient was unsure of which labs were abnormal, it appears that the patient's BUN and creatinine were abnormal however. Patient complained of decreased appetite and decreased oral intake over the last several weeks, patient has a history of depression which is chronic and recently his antidepressant medications were adjusted. Labs obtained in the emergency room showed an elevated BUN and creatinine at 58 and 2.94 respectively. It appears patient's baseline creatinine is probably around 1.3. Patient had a creatinine performed in November of this year however that was 0.9. His most recent creatinine before yesterday in this computer system was 1.33. Patient's white blood cell count was elevated at 14.4, hemoglobin was 11.1. Patient's urinalysis showed white blood cells but no bacteria and no red blood cells. Patient denied any urinary symptoms such as dysuria. Patient did complain of occasional episodes of urinary incontinence. Patient has CT of his abdomen and pelvis which showed a left hydronephrosis with left perinephric and periureteric stranding. There was noted to be a distended urinary bladder and a 1.5 cm calculus at the base of the bladder. There is also multiple gallstones noted. Patient was admitted to [place] [id number] for acute kidney injury, a Stewart was inserted in the emergency room with return of urine. At this time I have elected not to treat the patient for urinary tract infection as I am not convinced the patient has a urinary tract infection. Patient's labs will be rechecked tomorrow, I have elected to obtain a PSA. I will increase the patient's Flomax and place the patient on Proscar. 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) Pericardial effusion (02/2018) Pneumothorax Postoperative atrial fibrillation Right bundle branch block Sleep apnea Syncope and collapse Type 2 diabetes mellitus Home Medications metoprolol tartrate 25 mg tablet 25 mg PO BID 02/23/18 [History Last Taken 03/18/22] pravastatin 40 mg tablet 40 mg PO QHS 02/23/18 [History Last Taken 03/17/22] tamsulosin 0.4 mg capsule 0.4 mg PO QHS 02/23/18 [History Last Taken 03/17/22] cyanocobalamin (vitamin B-12) 2,500 mcg tablet 2,500 mcg PO DAILY 02/24/18 [History Last Taken 03/18/22] fish, borage, flaxseed oils-omega 3,6,9 cb #1 400 mg-400 mg-400 mg cap 800 mg PO BID 02/24/18 [History Last Taken 03/18/22] nitroglycerin 0.4 mg sublingual tablet 0.4 mg sublingual Q5-15M PRN chest pain #25 tabs 02/24/18 [Rx Last Taken 02/24/18 07:30] aspirin 81 mg chewable tablet 81 mg PO DAILY@0800 10/06/19 [History Last Taken 03/18/22] cholecalciferol (vitamin D3) 1,250 mcg (50,000 unit) capsule 50,000 unit PO FR 10/06/19 [History Last Taken 03/14/22] albuterol sulfate 90 mcg/actuation aerosol inhaler (ProAir HFA) 2 puff inhalation Q6H PRN wheezing 02/19/21 [History Last Taken Unknown] escitalopram oxalate 20 mg tablet 20 mg PO DAILY DEPRESSION 11/08/21 [History Last Taken 03/18/22] btrhmrag-tac-fkkpp acid 300 mcg-lycopene 600 mcg-lutein 300 mcg tablet (Centrum Silver Men) 1 tab PO DAILY 11/08/21 [History Last Taken 03/18/22] ascorbic acid (vitamin C) 500 mg tablet 500 mg PO BIDCM #0 tabs 11/12/21 [Rx Last Taken 03/18/22] colestipol 1 gram tablet 1 g PO BID #60 tabs 12/31/21 [Rx Last Taken 03/18/22] furosemide 40 mg tablet (Lasix) 40 mg PO DAILY 03/04/22 [History Last Taken 03/18/22] potassium chloride 20 mEq tablet,extended release(part/cryst) (Klor-Con M) 10 meq PO BIDCM 03/04/22 [History Last Taken 03/18/22] docusate sodium 100 mg capsule 100 mg PO DAILY 03/17/22 [History Last Taken 2 Days Ago ~03/16/22] vitamin A 2,400 mcg capsule 2,400 mcg PO DAILY 03/17/22 [History Last Taken 03/18/22] zinc 50 mg tablet 50 mg PO DAILY 03/17/22 [History Last Taken 03/18/22] bupropion HCl 150 mg 24 hr tablet, extended release 150 mg PO DAILY depression 03/18/22 [History Last Taken 03/18/22] ferrous sulfate 325 mg (65 mg iron) tablet (FeroSul) 325 mg PO DAILY 03/18/22 [History Last Taken 03/18/22] mirtazapine 7.5 mg tablet 7.5 mg PO DAILY 03/18/22 [History Last Taken 03/18/22] Allergy/AdvReac Type Severity Reaction Status Date / Time No Known Allergies Allergy Verified 03/18/22 08:56 Family History Mother Cancer Surgical History H/O coronary artery bypass surgery (03/01/18) H/O inguinal hernia repair H/O rectal polypectomy History of coronary artery stent placement (04/29/04) History of herniorrhaphy S/P pericardiocentesis (02/2018) Social History Smoking Status: Never smoker ROS Constitutional Constitutional: Reports change in weight; Denies anorexia, chills, fatigue, fever(s), malaise, night sweats or weakness Eyes Eyes: Denies blurry vision, change in vision, discharge from eye(s) or eye pain Cardiovascular Cardiovascular: Denies chest pain, claudication, dyspnea on exertion, edema or palpitations Respiratory/Chest Respiratory/Chest: Denies cough, hemoptysis, shortness of breath at rest or shortness of breath with exertion Gastrointestinal Gastrointestinal: Denies abdominal pain, constipation, diarrhea, hematemesis, hematochezia, melena, nausea or vomiting Genitourinary Genitourinary: Reports urinary incontinence; Denies difficulty urinating, dysuria, hematuria, urinary frequency, urinary hesitancy or urinary urgency Musculoskeletal Musculoskeletal: Denies back pain, joint pain, joint stiffness, joint swelling, myalgias or neck pain Neurologic Neurologic: Denies abnormal gait, abnormal speech, dizziness, focal weakness, headache(s), loss of vision, numbness, other visual disturbances, paresthesias, syncope or tingling Psychiatric Psychiatric: Reports depression; Denies anxiety, cognitive impairment, irritability, mood swings or suicidal ideation Endocrine Endocrinology: Denies change in body appearance, cold intolerance, excessive sweating, heat intolerance, polydipsia or polyuria Hematologic/Lymphatic Hematologic/Lymphatic: Denies none, anemia, easy bleeding, easy bruising or lymphadenopathy Allergic/Immunologic Allergic/Immunologic: Denies rhinitis, urticaria, eczemia or asthma Vital Signs Vital Signs Vital Signs: 03/18/22 08:56 03/18/22 09:16 03/18/22 12:13 Temperature 97.1 F L Temperature Source Temporal Pulse Rate 59 L 62 Respiratory Rate 17 16 Respiratory Effort Normal Non-Labored Respiratory Depth Respiratory Pattern Blood Pressure 109/71 115/72 Blood Pressure Mean 83 86 Blood Pressure Source Blood Pressure Position Blood Pressure Location Pulse Ox 92 96 Oxygen Delivery Method Room Air Room Air 03/18/22 13:43 03/18/22 14:30 03/18/22 14:30 Temperature 97.8 F 98.4 F Temperature Source Temporal Oral Pulse Rate 62 60 Respiratory Rate 16 14 Respiratory Effort Normal Non-Labored Respiratory Depth Normal Respiratory Pattern Normal Blood Pressure 115/72 127/62 H Blood Pressure Mean 86 83 Blood Pressure Source Monitor Blood Pressure Position Supine Blood Pressure Location Right Arm Pulse Ox 96 98 Oxygen Delivery Method Room Air Room Air Room Air Weight Weight: 93.9 kg Body Mass Index (BMI) 27.3 Physical Exam Const alert, oriented x3 and no apparent distress Constitutional Narrative: Patient appears his stated age General Appearance: cooperative, well kempt and well developed Orientation / Consciousness: awake, oriented to person, oriented to place and oriented to time HEENT normocephalic and moist oral mucous membranes Eyes PERRL, EOMs intact bilaterally and conjunctivae normal Neck supple, no JVD, thyroid normal and no carotid bruits General: trachea midline Resp normal respiratory effort and clear to auscultation bilaterally Auscultation: Negative for rales, rhonchi or wheezes Cardio regular rate, regular rhythm, S1 normal heart sound, S2 normal heart sound, no murmurs, no rub and no gallops GI normal to inspection, nondistended, normoactive bowel sounds, soft to palpation, non-tender and non-distended Extremity no clubbing, cyanosis or edema Skin no rashes or lesions noted General Skin Exam: no breakdown Neuro oriented x3, CN's II-XII intact bilaterally, no focal motor deficits and no sensory deficits noted Sensorium / Orientation: awake and alert Speech: speech normal Psych affect normal Results Medical Records Data Medical Nutrition Assessment Dietitian: Malnutrition Criteria Met Start: 03/18/22 15:15 Freq: Status: Active Protocol: Document 03/18/22 15:15 RMA (Rec: 03/18/22 15:16 RMA [id number]) Nutrition Malnutrition Evidence of Malnutrition Exists Yes Malnutrition (severe): Chronic Evidenced By Suboptimal Energy Intake ( Severe),Weight Loss (Severe) Clinical Problem Chronic Disease or Condition Related Malnutrition Etiology Severe protein-calorie malnutrition in the context of chronic disease related to inadequate oral intake Signs/Symptoms as evidenced by ~6% wt loss x past 2-4 weeks , ~17% wt loss x past 4-6 months and PO meeting less than 50% estimated nutrition needs x past 3 months Status Active Problem Recommendation Dietitian Recommendations/Changes Continue liberalized regular diet for now as PO established . Will add 120 ml ensure plus TID w/ meals for tolerance. Additional ONS as needed once intake established with meals. Lab / Micro Data Result Diagrams: 03/18/22 09:32 03/18/22 09:32 Labs: Laboratory Results - last 24 hr 03/18/22 09:32: WBC 14.4 H, RBC 3.76 L, Hgb 11.1 L, Hct 36.6 L, MCV 97.3 H, MCH 29.5, MCHC 30.3 L, RDW Std Deviation 57.9 H, RDW Coeff of Delfina 16.1 H, Plt Count 476 H, MPV 8.5, Immature Gran % (Auto) 2.800 H, Neut % (Auto) 82.5 H, Lymph % (Auto) 8.1 L, [place] % (Auto) 6.1, Eos % (Auto) 0.1, Baso % (Auto) 0.4, Absolute Neuts (auto) 11.9 H, Absolute Lymphs (auto) 1.17, Nucleated RBC % 0 03/18/22 09:32: Sodium 143, Potassium 4.3, Chloride 113 H, Carbon Dioxide 24.0, Anion Gap 6, BUN 58 H, Creatinine 2.94 H, Estim Creat Clear Calc 22.27, Est GFR (MDRD) Af Amer 27 L, Est GFR (MDRD) Non-Af 22 L, BUN/Creatinine Ratio 19.7, Glucose 132 H, Calcium 9.4 03/18/22 10:40: Urine Color Yellow, Urine Clarity Clear, Urine pH 5.0, Ur Specific [place] 1.010, Urine Protein Negative, Urine Glucose (UA) Normal, Urine Ketones Negative, Urine Occult Blood 50 H, Urine Nitrite Negative, Urine Bilirubin Negative, Urine Urobilinogen Normal, Ur Leukocyte Esterase 500 H, Urine RBC 0-5 SEEN, Urine WBC 25-50 SEEN, Ur Squamous Epith Cells 0 SEEN, Urine Bacteria 0 SEEN, Urine Mucus 0 SEEN Radiology Impression Abdomen/Pelvis CT 03/18/22 09:26 IMPRESSION: Moderate degree of bone left hydronephrosis with left perinephric and periureteric stranding. Distended urinary bladder. Stable 1.5 cm calculus at the base of the bladder. Multiple gallstones. Electronically Signed: Naresh Khanna MD at 10:19 EDT , Assessment & Plan Assessment/Plan (1) Acute renal failure: PLAN: Plan 1. Acute kidney injury secondary to bladder neck obstruction from suspected BPH-patient will be admitted to [facility] 3, IV fluids will be administered, labs will be obtained tomorrow, PSA will be obtained. Patient's Stewart will be maintained. #2 BPH-patient's Flomax will be increased, patient will be placed on Proscar, Stewart will be maintained, patient will need follow-up appointment with urology. #3 chronic depression-I have elected to stop the patient's Wellbutrin, according to the patient and his son who are in the room at the time my examination, patient's PCP had elected to take the patient off his Wellbutrin in the near future and increase his Remeron. I have increased the patient's Remeron to 15 mg nightly while he is in the hospital. #4 coronary artery disease-this appears stable at this time #5 hyperlipidemia-patient is on pravastatin Charges/Coding Visit Charges Inpatient E&M: 81064 Init Hosp L3
[2022-03-18 20:00] VITALS: BP 106/59; PULSE 72; RESP 16; TEMP 36.7; O2SAT 96
[2022-03-18 22:40] VITALS: PULSE 82
[2022-03-18] MEDS: Pravastatin 40 MG Tablet PO (22:40)
[2022-03-18] MEDS: Metoprolol Tartrate 25 MG Tablet PO (22:40)
[2022-03-18] MEDS: Heparin Injection (Vial) 5,000 UNIT/ML VIAL 5000 UNIT SC (22:40)
[2022-03-18] MEDS: Colestipol 1 GM TABLET PO (22:40)
[2022-03-18] MEDS: Menthol/Lanolin/Calamine/Znox 113 GM Tube 1 APPLIC TOPICAL (22:41)
[2022-03-19] VITALS (8 sets, daily range): BP systolic 93–116; BP diastolic 50–66; PULSE 54–78; RESP 16–18; TEMP 36.4–36.7; O2SAT 94–97
[2022-03-19] MEDS: Mirtazapine 15 MG Tablet PO (00:35)
[2022-03-19] MEDS: 0.9% Normal Saline 1,000 ML 100 ML IV ×2 (00:36→10:29)
[2022-03-19 07:08] LABS: Absolute Lymphocyte Count 1.58 X10^3/uL (0.83-4.51); Absolute Neutrophil Count 5.2 X10^3/uL (2.0-7.7); Basophil# 0.05 X10^3/uL; Basophil% 0.7 % (0-1); Eosinophil# 0.05 X10^3/uL; Eosinophils% 0.7 % (0-5); Hematocrit 32.4 % (40-54); Hemoglobin 9.8 g/dL (13.0-16.5); Lymphocyte # 1.58 X10^3/ul (0.83-4.51); Lymphocyte % 20.5 % (19-41); Mean Corp Hgb Conc 30.2 g/dL (32-36); Mean Corpuscular Hgb 29.6 pg (27.0-32.0); Mean Corpuscular Volume 97.9 fL (80-94); Mean Platelet Vol. 8.5 fl (6.2-12.0); Monocyte# 0.52 X10^3/uL; Monocyte% 6.8 % (0-10); NRBC Flagged by Analyzer 0 % (0-5); Neutrophil # 5.21 X10^3/uL (2.7-7.7); Neutrophil % 67.7 % (47-70); Platelet Count 392 K/mm3 (150-450); RBC Distribution Width CV 16.2 % (11.6-14.6); Red Blood Count 3.31 M/mm3 (4.6-6.2); White Blood Count 7.7 K/mm3 (4.4-11.0)
[2022-03-19 07:56] LABS: Anion Gap 4 (5-15); BUN 35 mg/dL (7-18); BUN/Creat Ratio 25.4 RATIO (10-20); Calcium,Total 8.6 mg/dL (8.5-10.1); Chloride 118 mmol/L (98-107); Creatinine, Serum 1.38 mg/dL (0.70-1.30); EST Glomerular Filtration Rate 53 mL/min (>60); Est Glom Filt Rate - Afr Amer 64 mL/min (>60); Estimated Creatinine Clearance 47.44 ml/min; Glucose 83 mg/dL (74-106); Potassium 3.9 mmol/L (3.5-5.1); Sodium Level 148 mmol/L (136-145)
[2022-03-19] MEDS: Aspirin 81 MG TAB.CHEW PO (10:02)
[2022-03-19] MEDS: Ascorbic Acid 500 MG Tablet PO (10:03)
[2022-03-19] MEDS: Menthol/Lanolin/Calamine/Znox 113 GM Tube 1 APPLIC TOPICAL (10:03)
[2022-03-19] MEDS: Ensure Plus High Protein 120 ML LIQUID PO (10:04)
[2022-03-19] MEDS: Docusate Sodium 100 MG Capsule PO (10:04)
[2022-03-19] MEDS: Colestipol 1 GM TABLET PO (10:04)
[2022-03-19] MEDS: Heparin Injection (Vial) 5,000 UNIT/ML VIAL 5000 UNIT SC (10:05)
[2022-03-19] MEDS: Escitalopram Oxalate 20 MG Tablet PO (10:06)
[2022-03-19] MEDS: Finasteride 5 MG Tablet PO (10:08)
--- NOTE | 2022-03-19 11:04 | CASEMGMT ---
Addendum entered by Sangeetha Ortega 03/19/22 12:11: Received notification that CCN will continue to see pt, pt ready for dc. Original Note: KIMMY GOLDMAN Assessment: Face to Face with pt for initial transition planning/care coordination assessment. KIMMY GOLDMAN introduced self and role at [facility], pt voices understanding and consents to assessment. Pt is A/O x4 and answers all questions appropriately at this time. Pt up in chair with son in room. Care providers, pharmacy, and demographics verified/updated. Admitting Dx: ARF. PCP: Winston. Specialists: Friend, GI; Anna, Cardio; Jorge, Urologist. Preferred Pharmacy: [facility]. Insurance: [place] [facility]. Prescription Benefit: yes. LW/HPOA: Pt reports his son, Andre, is his POA. LW/HPOA not on file. Encouraged Pt to bring copies to be kept on file if desired. LNOK: Vernon Daigle, Son; Kavitha Meyer, Dtr. Living Arrangements: Pt lives alone but son, Andre, is staying with him currently. Andre assists with ADLs if needed. Transportation: Pt's son, Andre, transports. DME/HHC/SNF: Pt has the following: walker, raised toilet, shower bench, and grab bars. CCN comes to the home. CCN contacted by KIMMY GOLDMAN. Pt has HHC [facility], including therapy, in October. Pt denied wanting any HHC. Nurse will provide education of Terry. Andre is able to assist with needs due to staying in the home. [facility] to [facility] in the past. Pt has med alert. Pt states no concerns with going home at time of dc. Pt states no further concerns/needs. CM to follow. Advised pt to ask CM if any further question/concerns/needs arise, voices understanding. Pt Goal: Home with CCN. Plan: Home with CCN.
--- NOTE | 2022-03-19 11:12 | DCINST_ITS ---
Discharge Instructions Diet Discharge Diet: No restrictions Activity Discharge Activity: Return to Normal Activity May resume sexual activity in: No Restrictions Weight Bearing Status: Full weight bearing Follow Up Care Test Results: Test results from this visit will be discussed in further detail at your follow- up appointment, if applicable. Discharge Plan Admission Admit Date/Time: 03/18/22 13:15 Primary Reason for Your Visit: acute kidney injury Attending Provider: Christopher Rushing Primary Care Provider: All Montero Instructions Additional Instructions / Restrictions: Call your physician if you have fever or chills in the next few days Discharge Orders/Prescriptions Prescriptions: New tamsulosin 0.4 mg Capsule 0.8 mg PO DAILY@1730 Qty: 60 0RF mirtazapine 15 mg Tablet 30 mg PO QHS Qty: 60 0RF finasteride 5 mg Tablet 5 mg PO DAILY Qty: 30 0RF Continued nitroglycerin 0.4 mg tablet, sublingual 0.4 mg SUBLINGUAL Q5-15M PRN (Reason: chest pain) Qty: 25 6RF Rx Instructions: until response; do not exceed 3 doses per episode metoprolol tartrate 25 mg tablet 25 mg PO BID pravastatin 40 mg tablet 40 mg PO QHS cholecalciferol (vitamin D3) 1,250 mcg (50,000 unit) capsule 50,000 unit PO FR Label Comments: TAKE 1 CAPSULE BY MOUTH ONCE A WEEK albuterol sulfate [ProAir HFA] 90 mcg/actuation HFA aerosol inhaler 2 puff inhalation Q6H PRN (Reason: wheezing) colestipol 1 gram tablet 1 g PO BID Qty: 60 2RF fish,bora,flax oils-om3,6,9no1 400 MG capsule 800 mg PO BID cyanocobalamin (vitamin B-12) 2,500 MCG tablet 2,500 mcg PO DAILY aspirin 81 mg tablet,chewable 81 mg PO DAILY@0800 Hold Instructions: Resume on 11/19/21. vitamin A 2,400 mcg Capsule 2,400 mcg PO DAILY docusate sodium 100 mg Capsule 100 mg PO DAILY zinc 50 mg Tablet 50 mg PO DAILY escitalopram oxalate 20 mg tablet 20 mg PO DAILY Centrum Silver Men 300-600-300 mcg Tablet 1 tab PO DAILY ascorbic acid (vitamin C) 500 mg Tablet 500 mg PO BIDCM Qty: 0 0RF ferrous sulfate [FeroSul] 325 mg (65 mg iron) tablet 325 mg PO DAILY Discontinued tamsulosin 0.4 mg capsule 0.4 mg PO QHS potassium chloride [Klor-Con M20] 20 mEq tablet,ER particles/crystals 10 meq PO BIDCM furosemide [Lasix] 40 mg tablet 40 mg PO DAILY bupropion HCl 150 mg tablet extended release 24 hr 150 mg PO DAILY mirtazapine 7.5 mg tablet 7.5 mg PO DAILY Referrals / Follow Up: All Montero MD [Primary Care Provider] - Within 2 Weeks Fer Patel MD [Med Staff - Active Staff] - See Referral Note (at 8 am on Mar 272021, office will send you paperwork) Disposition Disposition (needs filled in before D/C Order can be placed): Home, Self Care
--- NOTE | 2022-03-19 11:21 | PCM.DC.SUM ---
Providers Date of Admission: 03/18/22 Date of Discharge: 03/19/22 Primary Care Physician: Dr. All Montero MD Reason For Visit: ACUTE KIDNEY INJURY / ACUTE BLADDER OBSTRUCTION Diagnosis Discharge Diagnosis (1) Acute renal failure: Status: Acute Code(s): N17.9 - Acute kidney failure, unspecified Plan 1. Acute kidney injury secondary to bladder neck obstruction from suspected BPH-patient will be admitted to [facility], IV fluids will be administered, labs will be obtained tomorrow, PSA will be obtained. Patient's Stewart will be maintained. #2 BPH-patient's Flomax will be increased, patient will be placed on Proscar, Stewart will be maintained, patient will need follow-up appointment with urology. #3 chronic depression-I have elected to stop the patient's Wellbutrin, according to the patient and his son who are in the room at the time my examination, patient's PCP had elected to take the patient off his Wellbutrin in the near future and increase his Remeron. I have increased the patient's Remeron to 15 mg nightly while he is in the hospital. #4 coronary artery disease-this appears stable at this time #5 hyperlipidemia-patient is on pravastatin Medications at Discharge Home Medications metoprolol tartrate 25 mg tablet 25 mg PO BID 02/23/18 pravastatin 40 mg tablet 40 mg PO QHS 02/23/18 cyanocobalamin (vitamin B-12) 2,500 mcg tablet 2,500 mcg PO DAILY 02/24/18 fish, borage, flaxseed oils-omega 3,6,9 cb #1 400 mg-400 mg-400 mg cap 800 mg PO BID 02/24/18 nitroglycerin 0.4 mg sublingual tablet 0.4 mg sublingual Q5-15M PRN chest pain #25 tabs 02/24/18 aspirin 81 mg chewable tablet 81 mg PO DAILY@0800 10/06/19 cholecalciferol (vitamin D3) 1,250 mcg (50,000 unit) capsule 50,000 unit PO FR 10/06/19 albuterol sulfate 90 mcg/actuation aerosol inhaler (ProAir HFA) 2 puff inhalation Q6H PRN wheezing 02/19/21 escitalopram oxalate 20 mg tablet 20 mg PO DAILY DEPRESSION 11/08/21 bnboxgzc-nna-jmkqk acid 300 mcg-lycopene 600 mcg-lutein 300 mcg tablet (Tabitha May) 1 tab PO DAILY 11/08/21 ascorbic acid (vitamin C) 500 mg tablet 500 mg PO BIDCM #0 tabs 11/12/21 colestipol 1 gram tablet 1 g PO BID #60 tabs 12/31/21 docusate sodium 100 mg capsule 100 mg PO DAILY 03/17/22 vitamin A 2,400 mcg capsule 2,400 mcg PO DAILY 03/17/22 zinc 50 mg tablet 50 mg PO DAILY 03/17/22 ferrous sulfate 325 mg (65 mg iron) tablet (FeroSul) 325 mg PO DAILY 03/18/22 finasteride 5 mg tablet 5 mg PO DAILY #30 tabs 03/19/22 mirtazapine 15 mg tablet 30 mg PO QHS #60 tabs 03/19/22 tamsulosin 0.4 mg capsule 0.8 mg PO DAILY@1730 #60 caps 03/19/22 Hospital Course Operations None Procedures None Summary of Care Provided Minutes Spent on Discharge: 31 Hospital Course: This 81-year-old white male was seen in the emergency room at [facility] after being directed there for evaluation of abnormal labs obtained as an outpatient the day before. Labs obtained in the emergency room showed an elevated BUN at 58 and a creatinine of 2.94, CT of the abdomen pelvis showed a left hydronephrosis with large perinephric and periureteric stranding. Patient was admitted to [place] [address] for acute kidney injury, Stewart was inserted in the emergency room with return of urine. PSA was obtained which was normal, patient's Flomax was increased, patient's labs were monitored and his BUN and creatinine dropped. It was felt that the patient was stable for discharge on 03/19/2022, patient was seen and examined on that date: On examination he appeared in good health and spirits. Vital signs as documented. Skin warm and dry and without overt rashes. Neck without JVD, neck was supple, trachea midline, thyroid was normal. Lungs clear bilaterally, normal air movement was noted. Heart exam notable for regular rhythm, normal sounds and absence of murmurs, rubs or gallops. Abdomen unremarkable and without evidence of organomegaly, masses, or abdominal aortic enlargement. Bowel sounds are present, abdomen is not distended. Extremities nonedematous, no cyanosis was noted, no clubbing was noted. Neuro: Cranial nerves II through XII are grossly intact, no focal motor deficits were noted, sensation to light touch and pinprick intact, motor exam 5/5 throughout. Psych: Patient is alert and oriented x3, he does not appear anxious or depressed, he does not appear agitated. Patient was discharged in stable condition on 03/19/2022, he was scheduled to follow-up with urology as an outpatient and he went home with a leg bag. Medical Records Data Medical Nutrition Assessment Dietitian: Malnutrition Criteria Met Start: 03/18/22 15:15 Freq: Status: Active Protocol: Document 03/18/22 15:15 RMA (Rec: 03/18/22 15:16 RMA [id number]) Nutrition Malnutrition Evidence of Malnutrition Exists Yes Malnutrition (severe): Chronic Evidenced By Suboptimal Energy Intake ( Severe),Weight Loss (Severe) Clinical Problem Chronic Disease or Condition Related Malnutrition Etiology Severe protein-calorie malnutrition in the context of chronic disease related to inadequate oral intake Signs/Symptoms as evidenced by ~6% wt loss x past 2-4 weeks , ~17% wt loss x past 4-6 months and PO meeting less than 50% estimated nutrition needs x past 3 months Status Active Problem Recommendation Dietitian Recommendations/Changes Continue liberalized regular diet for now as PO established . Will add 120 ml ensure plus TID w/ meals for tolerance. Additional ONS as needed once intake established with meals. Weight / BMI Weight Weight: 93.9 kg Body Mass Index (BMI) 27.3 ABG / Lab / Microbiology Data Result Diagrams: 03/19/22 06:10 03/19/22 06:10 Laboratory: Laboratory Results - last 24 hr 03/19/22 06:10: Sodium 148 H, Potassium 3.9, Chloride 118 H, Carbon Dioxide 26.0, Anion Gap 4 L, BUN 35 H, Creatinine 1.38 H, Estim Creat Clear Calc 47.44, Est GFR (MDRD) Af Amer 64, Est GFR (MDRD) Non-Af 53 L, BUN/Creatinine Ratio 25.4 H, Glucose 83, Calcium 8.6, Total PSA 1.80 03/19/22 06:10: WBC 7.7, RBC 3.31 L, Hgb 9.8 L, Hct 32.4 L, MCV 97.9 H, MCH 29.6, MCHC 30.2 L, RDW Std Deviation 59.0 H, RDW Coeff of Delfina 16.2 H, Plt Count 392, MPV 8.5, Immature Gran % (Auto) 3.600 H, Neut % (Auto) 67.7, Lymph % (Auto) 20.5, Patrick % (Auto) 6.8, Eos % (Auto) 0.7, Baso % (Auto) 0.7, Absolute Neuts (auto) 5.2, Absolute Lymphs (auto) 1.58, Nucleated RBC % 0 Microbiology: Microbiology 03/18/22 10:40 Urine, Clean Catch Urine Culture - Preliminary GPC Poss Enterococcus sp D/C Instructions Discharge Diet: No restrictions May resume sexual activity in: No Restrictions Weight Bearing Status: Full weight bearing Meaningful Use Info Meaningful Use Diagnoses (Choose all that apply): None applicable Discharge Plan Admission Admit Date/Time: 03/18/22 13:15 Primary Reason for Your Visit: acute kidney injury Attending Provider: Christopher Rushing Primary Care Provider: All Montero Instructions Additional Instructions / Restrictions: Call your physician if you have fever or chills in the next few days Discharge Orders/Prescriptions Prescriptions: New tamsulosin 0.4 mg Capsule 0.8 mg PO DAILY@1730 Qty: 60 0RF mirtazapine 15 mg Tablet 30 mg PO QHS Qty: 60 0RF finasteride 5 mg Tablet 5 mg PO DAILY Qty: 30 0RF Continued nitroglycerin 0.4 mg tablet, sublingual 0.4 mg SUBLINGUAL Q5-15M PRN (Reason: chest pain) Qty: 25 6RF Rx Instructions: until response; do not exceed 3 doses per episode metoprolol tartrate 25 mg tablet 25 mg PO BID pravastatin 40 mg tablet 40 mg PO QHS cholecalciferol (vitamin D3) 1,250 mcg (50,000 unit) capsule 50,000 unit PO FR Label Comments: TAKE 1 CAPSULE BY MOUTH ONCE A WEEK albuterol sulfate [ProAir HFA] 90 mcg/actuation HFA aerosol inhaler 2 puff inhalation Q6H PRN (Reason: wheezing) colestipol 1 gram tablet 1 g PO BID Qty: 60 2RF fish,bora,flax oils-om3,6,9no1 400 MG capsule 800 mg PO BID cyanocobalamin (vitamin B-12) 2,500 MCG tablet 2,500 mcg PO DAILY aspirin 81 mg tablet,chewable 81 mg PO DAILY@0800 Hold Instructions: Resume on 11/19/21. vitamin A 2,400 mcg Capsule 2,400 mcg PO DAILY docusate sodium 100 mg Capsule 100 mg PO DAILY zinc 50 mg Tablet 50 mg PO DAILY escitalopram oxalate 20 mg tablet 20 mg PO DAILY Centrum Silver Men 300-600-300 mcg Tablet 1 tab PO DAILY ascorbic acid (vitamin C) 500 mg Tablet 500 mg PO BIDCM Qty: 0 0RF ferrous sulfate [FeroSul] 325 mg (65 mg iron) tablet 325 mg PO DAILY Discontinued tamsulosin 0.4 mg capsule 0.4 mg PO QHS potassium chloride [Klor-Con M20] 20 mEq tablet,ER particles/crystals 10 meq PO BIDCM furosemide [Lasix] 40 mg tablet 40 mg PO DAILY bupropion HCl 150 mg tablet extended release 24 hr 150 mg PO DAILY mirtazapine 7.5 mg tablet 7.5 mg PO DAILY Referrals / Follow Up: All Montero MD [Primary Care Provider] - Within 2 Weeks Fer Patel MD [Med Staff - Active Staff] - See Referral Note (at 8 am on Mar 272021, office will send you paperwork) Disposition Disposition (needs filled in before D/C Order can be placed): Home, Self Care Charges/Coding Visit Charges Inpatient E&M: 56164 Disch Hosp
[2022-03-19] MEDS: Ferrous Sulfate 325 MG Tablet PO (11:33)
--- NOTE | 2022-03-19 12:07 | NURSING ---
Leg bag teaching completed, with a handout, and new hui bag sent with patient. Hui adapted to leg bag per order.
== END 2022-03-19 12:36 | disposition home or self-care (01) | DRG 682 ==
LOC: ED 12:09 → MS3 13:16
PROVIDERS: Admitting Provider Internal Medicine; Emergency Provider Emergency Medicine; PCP Family Medicine; Visit Provider Internal Medicine
DX: N17.9 Acute kidney failure, unspecified (principal); E43 Unspecified severe protein-calorie malnutrition; E11.9 Type 2 diabetes mellitus without complications; I10 Essential (primary) hypertension; E78.5 Hyperlipidemia, unspecified; I25.10 Atherosclerotic heart disease of native coronary artery without angina pectoris; I25.2 Old myocardial infarction; N32.0 Bladder-neck obstruction; N13.39 Other hydronephrosis; N40.1 Benign prostatic hyperplasia with lower urinary tract symptoms; F32.A Depression, unspecified; N21.0 Calculus in bladder; Z68.27 Body mass index [BMI] 27.0-27.9, adult
CPT/HCPCS: 36415; 74176; 80048; 80053; 81001; 82607; 82728; 83540; 84134; 84153; 84443; 85025; 85652; 87040; 87077; 87086; 87088; 87186; 97162; 97166; 97802; 99285; J7030; P9612; A4216

== ENCOUNTER → 2022-03-27 | Outpatient (CLI) | payer MEDICARE, SELFPAY ==
[2022-03-27 10:22] LABS: Absolute Lymphocyte Count 1.89 X10^3/uL (0.83-4.51); Absolute Neutrophil Count 7.2 X10^3/uL (2.0-7.7); Basophil# 0.06 X10^3/uL; Basophil% 0.6 % (0-1); Eosinophil# 0.07 X10^3/uL; Eosinophils% 0.7 % (0-5); Hematocrit 37.9 % (40-54); Hemoglobin 11.8 g/dL (13.0-16.5); Lymphocyte # 1.89 X10^3/ul (0.83-4.51); Mean Corp Hgb Conc 31.1 g/dL (32-36); Mean Corpuscular Hgb 30.8 pg (27.0-32.0); Monocyte# 0.65 X10^3/uL; Monocyte% 6.5 % (0-10); NRBC Flagged by Analyzer 0 % (0-5); Neutrophil # 7.19 X10^3/uL (2.7-7.7); Neutrophil % 72.1 % (47-70); Platelet Count 360 K/mm3 (150-450); RBC Distribution Width CV 16.7 % (11.6-14.6); RBC Distribution Width SD 59.7 fl (35.1-43.9); RET-HE 32.4 pg (30-35); Red Blood Count 3.83 M/mm3 (4.6-6.2); Reticulocyte Count 3.52 % (0.5-1.5)
[2022-03-27 10:57] LABS: Anion Gap 4 (5-15); BUN 17 mg/dL (7-18); BUN/Creat Ratio 18.6 RATIO (10-20); Calcium,Total 9.2 mg/dL (8.5-10.1); Chloride 106 mmol/L (98-107); Creatinine, Serum 0.91 mg/dL (0.70-1.30); EST Glomerular Filtration Rate 84 mL/min (>60); Est Glom Filt Rate - Afr Amer 102 mL/min (>60); Ferritin 315 ng/mL (26-388); Glucose 102 mg/dL (74-106); Iron 52 ug/dL (65-175); Iron Binding Capacity,Total 207 ug/dL (250-450); PERCENT IRON SATURATION 25.1 % (15.0-55.0); Potassium 4.4 mmol/L (3.5-5.1); Sodium Level 140 mmol/L (136-145)
== END | disposition home or self-care (01) ==
LOC: MTLAB 09:20
PROVIDERS: PCP Family Medicine; Referring Provider Family Medicine; Visit Provider Family Medicine
DX: N17.9 Acute kidney failure, unspecified (principal); D64.9 Anemia, unspecified
CPT/HCPCS: 36415; 80048; 82728; 83540; 83550; 85025; 85045

== ENCOUNTER 2022-04-23 15:58 | Observation (INO) | payer MEDICARE, SELFPAY ==
[2022-04-23] VITALS (14 sets, daily range): BP systolic 92–125; BP diastolic 53–78; PULSE 53–73; RESP 16–18; TEMP 36.1–37; O2SAT 91–100; BMI 25.9
[2022-04-23] MEDS: Lactated Ringers 1,000 ML 15 ML IV ×2 (10:21→13:58)
--- NOTE | 2022-04-23 11:55 | PROS_PTH ---
PATIENT: NYASIA MOSQUEDA LOC: [facility] U#:[id number] AGE/SX: 81/M ROOM: AK308 RE04/23/[address]: Dr. Fer Patel MD : 1940 BED: 1 DIS: 04/25/2022 SPEC #: [id number] RECD: 04/23/22 13:50 STATUS: ADRIANA NÚÑEZ #: [id number] ALIZA: 04/23/22 11:[address]: Fer Patel DEPT: SURGICAL PATHOLOGY RECD BY: Shantelle Can ENTERED: 04/24/22 07:51 SP TYPE: TURP OTHR DR: Dr. Maynor Montero MD Tissues: Prostate, NOS Procedures: Surgery Specimen Level IV HEADER OPERATION: Cysto, TUR prostate, Olympus, litholopaxy laser stone PRE-OP DIAGNOSIS: BPH with lower urinary tract symptoms, retention of urine TISSUE SUBMITTED: Prostate tissue MICROSCOPIC DIAGNOSIS Prostate, transurethral resection: Benign nodular hyperplasia, glandular and stromal types. Chronic inflammation. AM:ahsan 04/25/2022 MICROSCOPIC DESCRIPTION Slides are reviewed. GROSS DESCRIPTION Received is one container labeled with the patient's name and designated prostate tissue. The specimen consists of multiple irregular fragments of pink-martin, rubbery, soft tissue that in aggregate weigh 13.5 gm and measure in aggregate 8 x 7 x 0.3 cm. Medical Illustrator portions are submitted in ten cassettes. / AM:ahsan 04/24/2022 TC:3 CPT: 76457
[2022-04-23] MEDS: Cefazolin 2 GM in 0.9% Normal Saline 100 ML IV (12:15)
--- NOTE | 2022-04-23 13:55 | DCINST_ITS ---
Discharge Instructions Diet Discharge Diet: No restrictions and Soft diet Activity Discharge Activity: Return to Normal Activity Follow Up Care Please Follow Up With: Fer Patel MD When: 2 weeks Test Results: Test results from this visit will be discussed in further detail at your follow- up appointment, if applicable. Discharge Plan Admission Primary Reason for Your Visit: turp, laser bladder stone Attending Provider: Fer Patel Primary Care Provider: All Montero Discharge Orders/Prescriptions Prescriptions: New ciprofloxacin HCl [Cipro] 500 mg tablet 500 mg PO BID Qty: 10 0RF Continued nitroglycerin 0.4 mg tablet, sublingual 0.4 mg SUBLINGUAL Q5-15M PRN (Reason: chest pain) Qty: 25 6RF Rx Instructions: until response; do not exceed 3 doses per episode metoprolol tartrate 25 mg tablet 25 mg PO BID pravastatin 40 mg tablet 40 mg PO QHS cholecalciferol (vitamin D3) 1,250 mcg (50,000 unit) capsule 50,000 unit PO FR Label Comments: TAKE 1 CAPSULE BY MOUTH ONCE A WEEK albuterol sulfate [ProAir HFA] 90 mcg/actuation HFA aerosol inhaler 2 puff inhalation Q6H PRN (Reason: wheezing) colestipol 1 gram tablet 2 g PO DAILY Qty: 60 2RF cholestyramine (with sugar) 4 gram powder 4 g PO HS Qty: 378 2RF Rx Instructions: administer w/meal; avoid other meds within 1hr before or 4-6hr after dose fish,bora,flax oils-om3,6,9no1 400 MG capsule 800 mg PO BID cyanocobalamin (vitamin B-12) 2,500 MCG tablet 2,500 mcg PO DAILY vitamin A 2,400 mcg Capsule 2,400 mcg PO DAILY docusate sodium 100 mg Capsule 100 mg PO DAILY zinc 50 mg Tablet 50 mg PO DAILY escitalopram oxalate 20 mg tablet 20 mg PO DAILY Centrum Silver Men 300-600-300 mcg Tablet 1 tab PO DAILY ferrous sulfate [FeroSul] 325 mg (65 mg iron) tablet 325 mg PO DAILY mirtazapine 15 mg Tablet 30 mg PO QHS Qty: 60 0RF Discontinued aspirin 81 mg tablet,chewable 81 mg PO DAILY@0800 Hold Instructions: Resume on 11/19/21. tamsulosin 0.4 mg Capsule 0.8 mg PO DAILY@1730 Qty: 60 0RF finasteride 5 mg Tablet 5 mg PO DAILY Qty: 30 0RF Referrals / Follow Up: All Montero MD [Primary Care Provider] - Fer Patel MD [Med Staff - Active Staff] - Disposition Disposition (needs filled in before D/C Order can be placed): Home, Self Care
--- NOTE | 2022-04-23 13:56 | OP.PCM_ITS ---
Report of Operation Date of Procedure: 04/23/22 Pre-Operative Diagnosis: large bladder stones, bph with retention of urine Post-Operative Diagnosis: same Surgery/Procedure Performed:: TURP and laser large bladder stones Description of Surgical Findings:: In the preoperative setting I discussed with the patient how the surgery would be done with expect afterwards. We discussed how a prostate resection is done and we discussed the risk of the surgery including, bleeding, infection, retrograde ejaculation, changes with ejaculation or intercourse,. We discussed the possibility that the resection of the prostate may not alleviate his urinary symptoms. We discussed the small risk of developing scar tissue along the urethral channel and strictures. We also discussed the chance of the prostate could grow back and he may need further surgery or treatment in the future for prostate problems. Patient was taken back to the operating room, timeout procedure was performed, he was identified and marked and placed on the operating room table. He underwent general anesthesia. He was placed in dorsolithotomy position. The urethra and genitals were prepped and draped in usual sterile fashion. Went into the bladder using a 24 Wallisian cystoscope. We used the laser bridge through the scope for continuous irrigation. Then using the laser bridge we introduced a laser fiber into the bladder and the stone in the bladder was ashutosh ed against the back wall. The stone measured larger than 3cm in size. The stone was then lasered using laser lithotripsy the small little pieces all the pieces were evacuated on the bladder. After all the stones were removed then the scope was removed there was minimal bleeding. Penis and testicles were prepped and draped in usual sterile fashion. Went into the bladder using the visual obturator with a resectoscope. Once inside the bladder identified the right and left ureteral orifice. I then identified the prostate and the anatomy of the prostate. I marked out the area of the sphincter and the verumontanum was identified. I then proceeded with the prostate resection first resected the median lobe. And then resected the right lobe of the prostate. Then to resect the left lobe of the prostate. I then resected the apical tissue of the prostate. This was a complete resection of all obstructive tissue to improve voiding and relieve obstruction. I then made sure that there was no injury to the sphincter or the verumontanum was still intact. At the end of the resection all the chips were Ellik out of the bladder. I then identified the left and right ureteral orifice and these were confirmed to be in good position and effluxing and not injured. The resectoscope was removed, a 22 Wallisian catheter was placed into the bladder on continuous irrigation. And the urine was fairly light pink color and draining normally. He was taken back to the PACU in good condition. Surgeon: Fer Patel Type of Anesthesia: General Drains: 3 way hui Admit VTE Documentation VTE Present on Admission: No VTE Mechan Device Prophylaxis: SCD's VTE Pharm Prophylaxis ordered?: No
[2022-04-23] MEDS: Menthol/Lanolin/Calamine/Znox 113 GM Tube 1 APPLIC TOPICAL ×2 (16:54→21:08)
[2022-04-23] MEDS: Ciprofloxacin 400 MG/200 ML BAG 200 MG IV (21:09)
[2022-04-23] MEDS: 0.9% Normal Saline 1,000 ML 75 ML IV (21:11)
[2022-04-23] MEDS: Cholestyramine/Sucrose 4 GM/PACKET PO (21:12)
[2022-04-23] MEDS: Pravastatin 40 MG Tablet PO (21:12)
[2022-04-23] MEDS: Docusate Sodium 100 MG Capsule 200 MG PO (21:12)
[2022-04-23] MEDS: Mirtazapine 30 MG Tablet PO (21:13)
[2022-04-24 03:16] VITALS: BP 95/50; PULSE 54; RESP 16; TEMP 36.6; O2SAT 97
[2022-04-24] MEDS: Menthol/Lanolin/Calamine/Znox 113 GM Tube 1 APPLIC TOPICAL ×3 (05:14→21:26)
[2022-04-24 06:37] VITALS: BP 117/63; PULSE 58; RESP 16; TEMP 36.6; O2SAT 97
--- NOTE | 2022-04-24 07:41 | PCM.PN.BLA ---
Progress Note Status post TURP doing well urine is clear we can remove the Stewart today and home after he urinates
[2022-04-24 08:24] VITALS: BP 107/57; PULSE 62; RESP 18; TEMP 36.8; O2SAT 96
[2022-04-24] MEDS: Docusate Sodium 100 MG Capsule 200 MG PO ×2 (08:31→21:26)
[2022-04-24] MEDS: Colestipol 1 GM TABLET 2 GM PO (08:32)
[2022-04-24] MEDS: Escitalopram Oxalate 20 MG Tablet PO (08:32)
[2022-04-24] MEDS: Ciprofloxacin 400 MG/200 ML BAG 200 MG IV (08:33)
--- NOTE | 2022-04-24 09:12 | NURSING ---
Hui removed at 0845. Pt sitting in chair since hui removed. Will monitor output.
--- NOTE | 2022-04-24 11:11 | PHA.DC.MC ---
Pharmacy Service has performed discharge medication reconciliation and counseling for this patient. The patient was counseled on the following discharge medications and changes in medications for homegoing were reviewed. 1. CIPROFLOXACIN - Counselled on avoiding concomitant use of multivitamin and ciprofloxacin The Reason for Use, instructions for use, and potential side effects were reviewed for all new medications. The patient's questions regarding all of their medications were answered. The patient was able to verbally demonstrate an understanding of their discharge medications. Home Medications metoprolol tartrate 25 mg tablet 25 mg PO BID 02/23/18 pravastatin 40 mg tablet 40 mg PO QHS 02/23/18 cyanocobalamin (vitamin B-12) 2,500 mcg tablet 2,500 mcg PO DAILY 02/24/18 fish, borage, flaxseed oils-omega 3,6,9 cb #1 400 mg-400 mg-400 mg cap 800 mg PO BID 02/24/18 nitroglycerin 0.4 mg sublingual tablet 0.4 mg sublingual Q5-15M PRN chest pain #25 tabs 02/24/18 cholecalciferol (vitamin D3) 1,250 mcg (50,000 unit) capsule 50,000 unit PO FR 10/06/19 albuterol sulfate 90 mcg/actuation aerosol inhaler (ProAir HFA) 2 puff inhalation Q6H PRN wheezing 02/19/21 escitalopram oxalate 20 mg tablet 20 mg PO DAILY DEPRESSION 11/08/21 vuaqwnac-gbw-ujcyi acid 300 mcg-lycopene 600 mcg-lutein 300 mcg tablet (Centrum Silver Men) 1 tab PO DAILY 11/08/21 docusate sodium 100 mg capsule 100 mg PO DAILY 03/17/22 vitamin A 2,400 mcg capsule 2,400 mcg PO DAILY 03/17/22 zinc 50 mg tablet 50 mg PO DAILY 03/17/22 ferrous sulfate 325 mg (65 mg iron) tablet (FeroSul) 325 mg PO DAILY 03/18/22 mirtazapine 15 mg tablet 30 mg PO QHS #60 tabs 03/19/22 cholestyramine (with sugar) 4 gram oral powder 4 g PO HS #378 grams 04/01/22 colestipol 1 gram tablet 2 g PO DAILY #60 tabs 04/01/22 ciprofloxacin HCl 500 mg tablet (Cipro) 500 mg PO BID #10 tabs 04/23/22 The patient's discharge medication list was reviewed for discrepancies and discrepancies were resolved.
--- NOTE | 2022-04-24 13:16 | NURSING ---
This RN assisted pt in getting to bathroom and trying to void. Pt has tried to void twice now and unable. This pt will bladder scan.
--- NOTE | 2022-04-24 14:56 | NURSING ---
pt has been to the bathroom with assist three times today since hui removed and has not voided. Dr. Patel paged as there are no orders for re-inertion of hui if retention.
[2022-04-24] MEDS: HYDROcodone Bitartrate/Apap 5/325 Tablet PO ×2 (15:22→17:26)
[2022-04-24 15:25] VITALS: BP 109/64; PULSE 77; RESP 20; TEMP 36.8; O2SAT 100
[2022-04-24 20:50] VITALS: BP 114/63; PULSE 68; RESP 16; TEMP 36.6; O2SAT 95
[2022-04-24 21:25] VITALS: BP 114/63; PULSE 68
[2022-04-24] MEDS: Metoprolol Tartrate 25 MG Tablet PO (21:25)
[2022-04-24] MEDS: Mirtazapine 30 MG Tablet PO (21:25)
[2022-04-24] MEDS: Pravastatin 40 MG Tablet PO (21:26)
[2022-04-24] MEDS: Cholestyramine/Sucrose 4 GM/PACKET PO (21:30)
[2022-04-25 02:54] VITALS: BP 120/68; PULSE 51; RESP 18; TEMP 36.4; O2SAT 95
[2022-04-25 02:57] VITALS: BP 120/68; PULSE 51; RESP 18; TEMP 36.4; O2SAT 95
[2022-04-25 05:12] VITALS: BP 131/72; PULSE 58; RESP 18; TEMP 37; O2SAT 92
[2022-04-25] MEDS: Menthol/Lanolin/Calamine/Znox 113 GM Tube 1 APPLIC TOPICAL (05:17)
[2022-04-25] MEDS: 0.9% Saline Lock 10 ML Syringe IV (05:18)
--- NOTE | 2022-04-25 08:06 | PCM.PN.BLA ---
Progress Note unable to void yesterday hui placed, pt wanted to stay 'one more night he can go home today with hui follow up out patient to remove hui.
[2022-04-25 09:00] VITALS: BP 135/71; PULSE 68; RESP 18; TEMP 37; O2SAT 98
[2022-04-25 09:13] VITALS: BP 135/71; PULSE 68; RESP 18; TEMP 37; O2SAT 98
--- NOTE | 2022-04-25 09:27 | CASEMGMT ---
KIMMY GOLDMAN in to discuss SINHA form with patient. KIMMY GOLDMAN explained SINHA form, patient voiced understanding. Pt signed form and filed in chart. Pt provided with a copy of signed SINHA form. Pt dtr in room with patient. She states pt had a catheter in the past and her brother is staying with the patient and he empties and cares for it. Pt denies any concerns with going home with catheter. Patient had no further questions or concerns at this time.
[2022-04-25 10:20] VITALS: PULSE 68
[2022-04-25] MEDS: Escitalopram Oxalate 20 MG Tablet PO (10:20)
[2022-04-25] MEDS: Metoprolol Tartrate 25 MG Tablet PO (10:20)
== END 2022-04-25 11:31 | disposition home or self-care (01) ==
LOC: SDC 16:02 → MS3 16:02
PROVIDERS: Admitting Provider Urology; PCP Family Medicine; Visit Provider Urology
PROC: (CPT 52601; principal; 2022-04-23 11:45)
DX: N40.1 Benign prostatic hyperplasia with lower urinary tract symptoms (principal); E11.9 Type 2 diabetes mellitus without complications; R33.8 Other retention of urine; N21.0 Calculus in bladder; I25.10 Atherosclerotic heart disease of native coronary artery without angina pectoris; E78.00 Pure hypercholesterolemia, unspecified; I25.2 Old myocardial infarction; I45.10 Unspecified right bundle-branch block; M19.90 Unspecified osteoarthritis, unspecified site; E66.9 Obesity, unspecified; G47.30 Sleep apnea, unspecified; Z79.899 Other long term (current) drug therapy; Z79.82 Long term (current) use of aspirin
CPT/HCPCS: 52601; 00914; 52318; 51702; 88305; 96361; 96365; 96366; 99218; 99251; J7030; J7120; A4216; G0378; G0463; J0744; J2405

== ENCOUNTER → 2022-09-11 | Outpatient (CLI) | payer MEDICARE, SELFPAY | END | disposition home or self-care (01) | LOC: PSN 09:15 | PROVIDERS: PCP Family Medicine; Referring Provider Physician Assistant Medical; Visit Provider Physician Assistant Medical | DX: R00.1 Bradycardia, unspecified (principal) | CPT/HCPCS: 93225; 93226 ==

== ENCOUNTER → 2022-10-06 | Outpatient (CLI) | payer MEDICARE, SELFPAY ==
[2022-10-06 10:48] LABS: Absolute Lymphocyte Count 1.79 X10^3/uL (0.83-4.51); Absolute Neutrophil Count 5.3 X10^3/uL (2.0-7.7); Basophil# 0.06 X10^3/uL; Basophil% 0.8 % (0-1); Eosinophils% 1.3 % (0-5); Hematocrit 48.8 % (40-54); Hemoglobin 15.2 g/dL (13.0-16.5); Lymphocyte # 1.79 X10^3/ul (0.83-4.51); Lymphocyte % 22.4 % (19-41); Mean Corp Hgb Conc 31.1 g/dL (32-36); Mean Corpuscular Hgb 31.4 pg (27.0-32.0); Mean Corpuscular Volume 100.8 fL (80-94); Mean Platelet Vol. 8.8 fl (6.2-12.0); Monocyte# 0.68 X10^3/uL; Monocyte% 8.5 % (0-10); NRBC Flagged by Analyzer 0 % (0-5); Neutrophil # 5.33 X10^3/uL (2.7-7.7); Neutrophil % 66.6 % (47-70); Platelet Count 187 K/mm3 (150-450); RBC Distribution Width CV 15.3 % (11.6-14.6); RBC Distribution Width SD 57.1 fl (35.1-43.9); RET-HE 33.9 pg (30-35); Red Blood Count 4.84 M/mm3 (4.6-6.2)
[2022-10-06 11:08] LABS: Ferritin 55 ng/mL (26-388); Iron 47 ug/dL (65-175); Iron Binding Capacity,Total 276 ug/dL (250-450)
== END | disposition home or self-care (01) ==
LOC: LAB 10:01
PROVIDERS: PCP Family Medicine; Referring Provider Internal Medicine Gastroenterology; Visit Provider Internal Medicine Gastroenterology
DX: R79.89 Other specified abnormal findings of blood chemistry (principal); I25.2 Old myocardial infarction; D64.9 Anemia, unspecified; I45.10 Unspecified right bundle-branch block
CPT/HCPCS: 36415; 82728; 83540; 83550; 85025; 85045

== ENCOUNTER → 2023-02-25 | Outpatient (CLI) | payer MEDICARE, SELFPAY ==
--- NOTE | 2023-02-25 08:44 | AAVD_ITS ---
Reason For Study: AAA Dissection Aorta Measurements Aorta Doppler Measurements Proximal aorta measures2.45 x 2.56cm. in cross- Peak systolic flow velocities within the proximal sectional axis. aorta measure 83.2 cm/sec. Proximal aorta measures2.49cm. in longitudinal Peak systolic flow velocities within the mid aorta axis. measure 213.1 cm/sec. Mid aorta measures1.85 x 1.80cm. in cross- Peak systolic flow velocities within the distal sectional axis. aorta measure 151.7 cm/sec. Mid aorta measures1.87cm. in longitudinal axis. Distal aorta measures1.14 x 1.34cm. in cross- sectional axis. Distal aorta measures1.31cm. in longitudinal axis. Aorta is tortuous. Heterogenous, calcified plaque noted throughout vessel. Left Iliac Artery Left iliac artery measures 1.05 x 1.11 cm. in the cross-sectional axis. Left iliac artery measures 1.15 cm. in the longitudinal axis. Peak systolic velocity in the left iliac artery measures 138.7 cm/sec. Right Iliac Artery Right iliac artery measures 1.18 x 1.14 cm. in the cross-sectional axis. Right iliac artery measures 1.09 cm. in the longitudinal axis. Peak systolic velocity in the right iliac artery measures 125.8 cm/sec. VL/Abd Aortic/IVC Duplex scan Interpretation Summary Aorta patent, normal caliber Bilateral iliac arteries patent, normal caliber Ordering Physician: Nicolas Alvarado Referring Physician: Maynor Montero Performed By: Jama Goodwin, RVT
== END | disposition home or self-care (01) ==
LOC: CVS 08:44
PROVIDERS: PCP Family Medicine; Referring Provider Surgery Trauma Surgery; Visit Provider Surgery Trauma Surgery
DX: I71.02 Dissection of abdominal aorta (principal)
CPT/HCPCS: 93978

== ENCOUNTER → 2023-07-27 | Outpatient (CLI) | payer MEDICARE, SELFPAY ==
--- OUTSIDE RECORDS SUMMARY | 2023-07-27 09:07 | XMS RPT_ITS | CCD ---
Author Name Unknown Address [id number] [place] [address] Organization [facility] Care Team Providers Care Collection Coordinator Name Role Phone ALVIN SORIANO Unavailable Unavailable CRISTIAN ALMONTE Unavailable Unavailable FIDENCIO HERNÁNDEZ Attending Unavailable CRISTIAN ALMONTE Referring Unavailabl e CRISTIAN ALMONTE Primary Care Unavailabl e JV PICKARD Attending Unavailable IMCA Referring Unavailable CRISTIAN ALMONTE Primary Care Unavailabl FIDENCIO Woods Attending Unavailable CRISTIAN ALMONTE Referring Unavailabl e CRISTIAN ALMONTE Primary Care Unavailabl e FIDENCIO HERNÁNDEZ Attending Unavailable CRISTIAN ALMONTE Referring Unavailabl e CRISTIAN ALMONTE Primary Care Unavailabl e GEOFFREY COBB Attending Unavailable CRISTIAN ALMONTE Referring Unavailabl e CRISTIAN ALMONTE Primary Care Unavailabl e VIOLETTE NÚÑEZ Admitting Unavailable VIOLETTE NÚÑEZ Attending Unavailable CRISTIAN ALMONTE Primary Care Unavailabl e JOSE MANUEL GEE Consulting Unavailable PEPPER LEZAMA S Referring Unavailable OZ MONTOYA Consulting Unavailable RICKEY BEAL Consulting Unavailable JOSE SMITH Consulting Unavailable PATRIA ARECHIGA Consulting Unavailable WAGNER FERRO III Consulting Unavailable FIDENCIO HERNÁNDEZ Attending Unavailable CRISTIAN ALMONTE Referring Unavailabl e CRISTIAN ALMONTE Primary Care Unavailabl e VIOLETTE NÚÑEZ Admitting Unavailable VIOLETTE NÚÑEZ Attending Unavailable CRISTIAN ALMONTE Primary Care Unavailabl e DEWEY YOUNGBLOOD Consulting Unavailable CLAYTON HO Consulting Unavailable MARTHA VALENTINE Consulting Unavailable FIDENCIO HERNÁNDEZ Referring Unavailable CRISTIAN ALMONTE Primary Care Unavailabl e Problems Problem Classification Problem Date Documented Da te Episodic/Chronic Radha-; endo-; and myocarditis; cardiomyopathy (except that caused by tuberculosis or sexually transmitted disease) (2 sources) Pericardial effusion (noninflammatory) Onset: 03-22-2018 Episodic Results Test Name Value Interpretation Reference Range Facil ity Vital Signs Date Time Vital Sign Value Performing Clinician Holly [email or web address] 03-01-2018 20:24-0400 Body temperature 36.[address] [facility] Encounters Encounter Date Encounter Type Care Provider Facility Start: 06-10-2018 End: 06-10-2018 Patient encounter procedure JV PICKARD Facility:[facility] Start: 04-13-2018 End: 04-13-2018 Patient encounter procedure FIDENCIO BETTY Facility:[facility] Start: 04-01-2018 End: 04-02-2018 Patient encounter procedure FIDENCIO HERNÁNDEZ Facility:[facility] Start: 04-01-2018 End: 04-01-2018 Patient encounter procedure RENÉEMaria Guadalupe BETTY Facility:[facility] Start: 03-29-2018 Patient encounter procedure FIDENCIO HERNÁNDEZ Facility:[facility] Start: 03-26-2018 Patient encounter procedure GEOFFREY COBB Facility:[facility] Start: 03-16-2018 Patient encounter procedure RENÉEMaria Guadalupe BETTY Facility:[facility] Start: 03-12-2018 End: 03-22-2018 Evaluation and management of inpatient VIOLETTE NÚÑEZ Facility:[facility] Start: 03-12-2018 End: 03-12-2018 Emergency department patient visit ALVINMARIO SORIANO Facility:[facility] Start: 02-24-2018 End: 03-10-2018 Evaluation and management of inpatient VIOLETTE NÚÑEZ Facility:[facility] Procedures Date Procedure Procedure Detail Performing Clinician Start: 02-28-2018 Antibody screen FIDENCIO X IE Payers Date Payer Category Payer Unknown [id number] 1940 Unknown [id number] 2.16.8 [id number] 1940 Unknown [id number] 2.16.8 [id number] 1940 Unknown [id number] 2.16.8 [id number] 1940 Unknown [id number] 2.16.8 [id number] 1940 Unknown [id number] 2.16.8 [id number] 1940 Unknown [id number] 2.16.8 [id number] 1940 Unknown [id number] 2.16.8 [id number] 1940 Unknown [id number] 2.16.8 [id number] 1940 Unknown [id number] 2.16.8 [id number] 1940 Unknown [id number] 2.16.8 [id number] Clinical Note 06-26-2020 Note Date & Type Note Facility 06-26-2020 Note Patient Outreach ([place] OCC3) [facility]ASIA MOSQUEDA ([id number]) 1940 Date Time Provider Department 06/26/20 JANIS BENITO During your visit today, we recorded the following information about you: Allergies As of Date: 06/26/2020 (No Known Allergies) Date Reviewed: 06/13/2018 Reviewed by: Yanira Greene - Fully Assessed Order(s):SARS-COVID VACCINE 1ST DOSE APPT [[id number]] Order #: [id number] FUTURE Prescriptions as of 06/26/2020 Sig: ASPIRIN 81 MG CHEWABLE TABLET Take 1 tablet by mouth once d* METOPROLOL TARTRATE 25 MG TAB* Take 1 tablet by mouth every * FUROSEMIDE 20 MG TABLET Take 1 tablet by mouth once d* POTASSIUM CHLORIDE ER 20 MEQ * Take 1 tablet by mouth once d* MAGNESIUM OXIDE 400 MG (241.3* Take 1 tablet by mouth twice * MELATONIN 3 MG TABLET Take 1 tablet by mouth at bed* FLAX, FISH AND BORAGE OIL ORAL Take 800 mg by mouth twice da* BUPROPION XL 300 MG 24 HR TAB Take 300 mg by mouth once kim* CYANOCOBALAMIN (VITAMIN B-12)* Take 2,500 mcg by mouth once * PRAVASTATIN 40 MG TABLET Take 40 mg by mouth once fredy* TAMSULOSIN ORAL Take 0.4 mg by mouth daily at* METFORMIN ER 500 MG 24 HR TAB* Take 500 mg by mouth daily wi* Problem List As Of Date 06/26/2020 Noted Resolved Unstable angina (HCC) [I20.0] 02/24/2018 03/13/2018 Obesity, Class III, BMI >= 40 [E66.01] 02/28/2018 Type 2 diabetes mellitus without complication, *03/02/2018 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 Delirium [R41.0] 03/15/2018 Obesity, Class II, BMI 35-39.9 [E66.9] 03/22/2018 Pericardial effusion (noninflammatory) [I31.3] 03/22/2018 Letter Text Encounter Status:Closed by [facility], PRODUSER on 06/29/20 [facility] Summary Purpose Family History No Family History Records FoundNo Family History Records FoundNo Family History Records FoundNo Family History Records Found Advance Directives No Advanced Directives Records FoundNo Advanced Directives Records FoundNo Advanced Directives Records FoundNo Advanced Directives Records Found Additional Source Comments (unrecognized sect ion and content) No Status Records FoundNo Status Records FoundNo Status Records FoundNo Status Records Found INFORMATION SOURCE (unrecogn ized section and content) DATE CREATED AUTHOR AUTHOR'S ORGANIZ ATION 06/17/2018 [facility] DATE CREATED AUTHOR AUTHOR'S ORGANSOHAIL ATION 05/13/2019 [facility] DATE CREATED AUTHOR AUTHOR'S ORGANSOHAIL ATION 06/21/2021 [facility] FOR RECORDS PERTAINING TO PATIENTS WHO ARE OR HAVE BEEN ENROLLED IN A CHEMICAL DEPENDENCY/SUBSTANCEABUSE PROGRAM, SOME INFORMATION MAY BE OMITTED. This clinical summary was aggregated from multiple sources. Caution should be exercised in using it in the provision of clinical care. This summary normalizes information from multiple sources, and as a consequence, information in this document may materially change the coding, format and clinical context of patient data. In addition, data may be omitted in some cases. CLINICAL DECISIONS SHOULD BE BASED ON THE PRIMARY CLINICAL RECORDS. [facility] [employer] provides no warranty or guarantee of the accuracy or completeness of information in this document.
[2023-07-27 10:51] LABS: Vitamin B12 1274 pg/mL (211-911)
[2023-07-27 11:08] LABS: AST(SGOT) 17 U/L (15-37); Alanine Aminotransfer ALT/SGPT 21 U/L (16-61); Albumin, Serum 3.7 g/dL (3.2-5.0); Alkaline Phosphatase 63 U/L (45-117); Anion Gap 2 (5-15); BUN 14 mg/dL (7-18); BUN/Creat Ratio 12.6 RATIO (10-20); Calcium,Total 9.8 mg/dL (8.5-10.1); Chloride 109 mmol/L (98-107); Cholesterol 160 mg/dL (200); Creatinine, Serum 1.11 mg/dL (0.70-1.30); EST Glomerular Filtration Rate 67 mL/min (>60); Est Glom Filt Rate - Afr Amer 81 mL/min (>60); Globulin 3.7 g/dL (2.2-4.2); Glucose 99 mg/dL (74-106); High Density Lipoprotein 43 mg/dL; Potassium 4.3 mmol/L (3.5-5.1); Protein, Total 7.4 g/dL (6.4-8.2); Sodium Level 141 mmol/L (136-145); Thyroid Stim Hormone (TSH) 2.48 uIU/mL (0.358-3.74); Triglycerides 207 mg/dL; Very Low Density Lipoprotein 41 mg/dL (5-40)
== END | disposition home or self-care (01) ==
LOC: MFPLAB 08:41
PROVIDERS: PCP Family Medicine; Visit Provider Family Medicine
DX: E11.9 Type 2 diabetes mellitus without complications (principal)
CPT/HCPCS: 36415; 80053; 80061; 82607; 84443

== ENCOUNTER → 2024-03-01 | Outpatient (CLI) | payer MEDICARE, SELFPAY ==
--- NOTE | 2024-03-01 08:22 | AAVD_ITS ---
Reason For Study: Evaluate AAA for Dissection/Plaque Aorta Measurements Aorta Doppler Measurements Proximal aorta measures2.75 x 2.54cm. in cross- Peak systolic flow velocities within the proximal sectional axis. aorta measure 46.9 cm/sec. Proximal aorta measures2.73cm. in longitudinal Peak systolic flow velocities within the mid aorta axis. measure 63.6 cm/sec. Mid aorta measures1.70 x 1.53cm. in cross- Unable to accurately calculate distal AO velocity sectional axis. due to bowel gas and acoustic shadowing. Mid aorta measures1.87cm. in longitudinal axis. Distal aorta measures2.10 x 2.01cm. in cross- sectional axis. Distal aorta measures2.20cm. in longitudinal axis. Aorta is tortuous Heterogenous calcified plaque noted throughout the vessel. Left Iliac Artery Left iliac artery measures 1.34 x 1.23 cm. in the cross-sectional axis. Left iliac artery measures 1.29 cm. in the longitudinal axis. Peak systolic velocity in the left iliac artery measures 127.1 cm/sec. Right Iliac Artery Right iliac artery measures 1.15 x 1.10 cm. in the cross-sectional axis. Right iliac artery measures 1.11 cm. in the longitudinal axis. Peak systolic velocity in the right iliac artery measures 81.0 cm/sec. Procedure Aorta IVC Iliac vasculature or bypass grafts [id number]. The exam was of poor technical quality due to bowel gas. Exam performed in department. VL/Abd Aortic/IVC Duplex scan Interpretation Summary Aorta patent, 2.75 cm ectasia present Bilateral iliac arteries patent, normal caliber. Ordering Physician: Marianela Sanchez Referring Physician: Maynor Montero MD Performed By: Jama Godowin, RVT
== END | disposition home or self-care (01) ==
LOC: CVS 08:22
PROVIDERS: PCP Family Medicine; Referring Provider Physician Assistant; Visit Provider Physician Assistant
DX: I71.02 Dissection of abdominal aorta (principal)
CPT/HCPCS: 93978

== ENCOUNTER → 2024-12-22 | Outpatient (CLI) | payer MEDICARE, SELFPAY ==
[2024-12-22 15:30] LABS: Hematocrit 50.7 % (40-54); Hemoglobin 16.5 g/dL (13.0-16.5); Mean Corp Hgb Conc 32.5 g/dL (32-36); Mean Corpuscular Volume 99.0 fL (80-94); Mean Platelet Vol. 9.5 fl (6.2-12.0); Platelet Count 198 K/mm3 (150-450); RBC Distribution Width CV 14.8 % (11.6-14.6); RBC Distribution Width SD 54.6 fl (35.1-43.9); Red Blood Count 5.12 M/mm3 (4.6-6.2); White Blood Count 7.0 K/mm3 (4.4-11.0)
[2024-12-22 17:04] LABS: AST(SGOT) 29 U/L (<=37); Alanine Aminotransfer ALT/SGPT 25 U/L (<=46); Albumin, Serum 4.0 g/dL (3.4-4.8); Alkaline Phosphatase 58 U/L (40-129); Anion Gap 14 (5-15); BUN 11 mg/dL (4-19); BUN/Creat Ratio 11.2 RATIO (10-20); Calcium,Total 9.6 mg/dL (7.6-11.0); Carbon Dioxide 26.4 mmol/L (21.0-32.0); Chloride 103 mmol/L (98-108); Cholesterol 141 mg/dL (<=200); Globulin 2.8 g/dL (2.2-4.2); Glucose 86 mg/dL (70-99); Low Density Lipoprotein Calc. 60 mg/dL; Potassium 4.0 mmol/L (3.3-5.1); Triglycerides 168 mg/dL; Very Low Density Lipoprotein 34 mg/dL (5-40); Vitamin B12 1352 pg/mL (180-914); Vitamin D,25 Hydroxy 104.0 ng/mL (30-100); cholesterol:hdl ratio screen 2.97
== END | disposition home or self-care (01) ==
LOC: MFPLAB 10:47
PROVIDERS: PCP Family Medicine; Referring Provider Family Medicine; Visit Provider Family Medicine
DX: E11.59 Type 2 diabetes mellitus with other circulatory complications (principal); E53.8 Deficiency of other specified B group vitamins; E55.9 Vitamin D deficiency, unspecified; F32.A Depression, unspecified
CPT/HCPCS: 36415; 80053; 80061; 82306; 82607; 84443; 85027

== ENCOUNTER → 2025-02-28 | Outpatient (CLI) | payer MEDICARE, SELFPAY ==
--- NOTE | 2025-02-28 08:48 | AAVD_ITS ---
Reason For Study Reason For Study: AAA / Atherosclerosis Aorta Measurements Aorta Doppler Measurements Proximal aorta measures2.65 x 2.81cm. in cross-sectional Peak systolic flow velocities within the proximal aorta axis. measure 61.9 cm/sec. Proximal aorta measures2.62cm. in longitudinal axis. Peak systolic flow velocities within the mid aorta measure Mid aorta measures1.53 x 1.51cm. in cross-sectional axis. 91.1 cm/sec. Mid aorta measures1.66cm. in longitudinal axis. Peak systolic flow velocities within the distal aorta Distal aorta measures1.87 x1.85cm. in cross-sectional axis. measure 247.1 cm/sec. Distal aorta measures1.90cm. in longitudinal axis. Extensive heterogenous calcified plaque and tortuosity noted at distal Aorta. Left Iliac Artery Left iliac artery measures 1.40 x 1.40 cm. in the cross-sectional axis. Left iliac artery measures 1.31 cm. in the longitudinal axis. Peak systolic velocity in the left iliac artery measures 90.4 cm/sec. Right Iliac Artery Right iliac artery measures 1.06 x 1.10 cm. in the cross-sectional axis. Right iliac artery measures 1.36 cm. in the longitudinal axis. Peak systolic velocity in the right iliac artery measures 127.1 cm/sec. Procedure Aorta IVC Iliac vasculature or bypass grafts [id number]. The exam was of fair technical quality due to Gas@ Prox AO / Tortuosity and heterogenous plaque at distal AO. Exam performed in department. VL/Abd Aortic/IVC Duplex scan Interpretation Summary Aorta patent with ectasia to 2.81 cm, stenosis >50% distal. Right iliac artery patent, ectasia to 1.36 cm Left iliac artery patent with ectasia to 1.4 cm Ordering Physician: Marianela Sanchez Referring Physician: Maynor Montero MD Performed By: Jama Goodwin RVT and Student
== END | disposition home or self-care (01) ==
LOC: CVS 08:47
PROVIDERS: PCP Family Medicine; Referring Provider Physician Assistant; Visit Provider Physician Assistant
DX: I71.02 Dissection of abdominal aorta (principal)
CPT/HCPCS: 93978